=== PATIENT | male | born 1960 | race Caucasian/White ===

== ENCOUNTER 2016-06-13 08:01 | Day surgery (SDC) | payer OTHER ==
[~2016-06-13] VITALS: Ht 193 cm; Wt 97.6 kg
[~2016-06-13 08:01] MED LIST: ALBU18HF INH; ALPR0.5T8 PO; BECL8.7A6 INHALATION; CYPR4TAB PO; CeFAZolin 2 Gm/50 mL D5W IV Premix IV ONE; HYDR-4003 PO; Lactated Ringer's 1,000 ML IV SCH; SUMA6VIA18 SQ; VERA120T5 PO
[2016-06-13] MEDS ORDERED: fentaNYL-PF 50 mCg/mL 2 mL Inj ONE (08:02)
[2016-06-13] MEDS ORDERED: Propofol 10,000 mCg/mL 20 mL Inj ONE (08:02)
[2016-06-13] MEDS ORDERED: Lidocaine PF 1% 30 mL Inj ONE (08:02)
[2016-06-13] MEDS ORDERED: Lactated Ringer's 1,000 ML IV ONE (08:32)
[2016-06-13 08:33] VITALS: BP 130/66; PULSE 72; RESP 17; O2SAT 97
--- NOTE | 2016-06-13 08:51 | PCM.HPANE ---
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), Denies:: Anesthesia Reactions Diabetes History Hx Diabetes?: No MRSA MRSA: No Medications Home Meds Incl Beta Helene: No Reported Medications Beclomethasone Dipropionate (Qvar)8.7 Gm Aer.w.adap2 Puff INHALATION BID #8.7 GM 05/24/16 Albuterol Sulfate (Ventolin HFA Inhaler)200 Puff/18 Gm Inhaler2 Puff INH Q4 PRN For Wheezing #1 INHALER Ref 0 05/24/16 Hydrocodone-Acetaminophen 5-325 mg 1 Each Tablet1 Tablet PO Q4H PRN For Pain Ref 0 05/24/16 Alprazolam 0.5 Mg Tablet0.5 Mg PO TID PRN For Anxiety Ref 0 05/24/16 Cyproheptadine HCl 4 Mg Tablet4 Mg PO TID PRN For Eye Irritation 05/24/16 Sumatriptan Succinate 6 Mg/0.5 Ml Vial6 Mg SQ 05/24/16 Verapamil 120 Mg [id number] Mg PO TID Ref 0 05/24/16 History History of ENT Problems?: No HEENT History: Positive for:: Abnormal Airway (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) Dysphagia Teeth Condition: Missing Teeth Hx of Heart Problems?: No Other Cardiac History: HISTORY OF CALF PAIN Hx of Respiratory Problem?: Yes Respiratory History: Positive for:: Asthma COPD Cough (CHRONIC) Use of Inhalers / NEBS Other Resp Pertinent History: HISTORY OF SPONTANEOUS PNEUMOTHORAX Hx Neurologic Problems?: Yes Neurological History: Positive for:: Headaches Hx of GI Problems?: No Other GI Pertinent History: DYSPHAGIA Hx of Problems?: Yes Other Pertinent History: URINARY FREQUENCY, NOCTURIA Male Hx: Denies:: Prostate Problems Scrotal Mass Testicular Surgery Hx Musculoskeletal Problems?: No Musculoskeletal History: Positive for:: Back Injury Hx of Psycho/Social Problems?: No Hx Surgeries?: Yes (HERNIA REPAIR, BLUBECTOMY) Hx Any Other Health Problems?: Yes Other History: Positive for:: Cancer (HEAD AND NECK CANCER) Hx Diabetes: No Hx Alcohol Use: Yes (CHRONIC DAILY 40YEARS 4-5 BEERS DAILY)Hx Substance Use: Yes (MARIJUANA )Have You Smoked inLast 12 mo: YesApprox How Many Cigarettes/day : 1/2 PACK DAILY Stop/Bang Treated for Sleep Apnea?: No Do You Have a CPAP Machine?: No S-Snoring: Do You Snore Loudly: No T-Tired: feel tired, fatigued: No O-Obsered: Observed not breath: No P-Blood Pressure: treated: Yes B- Body Mass Index > 35 kg/m2: No A- Age over 50: Yes N- Neck Large Circumference: No G- Gender Male: Yes RAMONA Total Score: 3 RAMONA Risk Assessment: High Risk, =/>3 Yes RAMONA Category 4 OutPt Procedure: Yes Risk Assessment Category Category 1A: Patient has history of documented sleep apnea, and HAS NOT received any narcotic, sedative or anesthesia administration during this stay. Category 1B: Patient has history of documented sleep apnea, and HAS received any narcotic , sedative or anesthesia administration during this stay Category 2: Patient has SUSPECTED Obstructive Sleep Apnea, and HAS received any narcotic , sedative or anesthesia administration during this stay. Category 3: Patient has SUSPECTED Obstructive Sleep Apnea and HAS NOT received narcotic, sedative or anesthesia administration during this stay. Category 4: Outpatient in Procedural Areas with known sleep apnea or who screen positive for High Risk via the STOP/BANG questionnaire. Exam Exam Vital Signs Vital Signs Date Time Temp Pulse Resp B/P Pulse Ox O2 Delivery O2 Flow Rate FiO2 06/13/16 08:33 36.3 72 17 130/66 97 Room Air General Appearance: Alert, Oriented X3, Cooperative HEENT/AIRWAY: MP 2, Neck Movement (Full movement), Mouth Opening (Wide), Tonsillar Hypertrophy (tonsillar cancer) Lungs: Clear to Auscultation, Clear to Percussion Heart: Regular Rate/Rhythm, Normal S1, Normal S2 Meds/Labs/Diagnostics Admission Meds Current Medications Lactated Ringer's (Lr) 1,000 ml @ ud STK-MED ONCE IV Last administered on 1/12 /17at 08:32; Start 06/13/16 at 08:32; Stop 06/13/16 at 08:33; Status DC Plan Impression Patient chart reviewed, patient interviewed and anesthestic plan with risks, benefits, and alternatives discussed, and informed consent obtained. NPO Status: MN on 06/12, water @ 0700 w am Rx ASA Physical Status: ASA3 Severe Disease (stage IV cancer) Anesthetic Plan: MAC Bene/Risks/Altern/Consents: Yes HP Complete Prior to Induction: Yes Roberto Galvez MD Jun 13, 2016 08:51
[2016-06-13] MEDS ORDERED: Lactated Ringer's 1,000 ML IV SCH (08:53)
[2016-06-13] MEDS ORDERED: Lactated Ringer's 500 ML IV PRN (08:53)
[2016-06-13] MEDS ORDERED: fentaNYL-PF 50 mCg/mL 2 mL Inj IVPUSH PRN (08:55)
[2016-06-13] MEDS ORDERED: MetoCLOpramide 5 mg/mL 2 mL Inj IVPUSH PRN (08:55)
[2016-06-13] MEDS ORDERED: Labetalol 5 mg/mL 4 mL Inj IV PRN (08:55)
[2016-06-13] MEDS ORDERED: Ondansetron 2 mg/mL 2 mL Inj IVPUSH PRN (08:55)
[2016-06-13] MEDS ORDERED: Atropine 0.4 mg/mL Inj IVPUSH PRN (08:55)
[2016-06-13] MEDS ORDERED: Albuterol 2.5 mg/3 mL Inhalation Solution NEB PRN (08:55)
[2016-06-13] MEDS ORDERED: Phenylephrine 10,000 mCg/mL Inj IVPUSH PRN (08:55)
[2016-06-13] MEDS ORDERED: hydrALAZINE 20 mg/mL Inj IVPUSH PRN (08:55)
[2016-06-13] MEDS ORDERED: EPHEDrine Sulfate 50 mg/mL Inj IVPUSH PRN (08:55)
[2016-06-13] MEDS ORDERED: HYDROmorphone 1 mg/mL Inj IVPUSH PRN (08:55)
[2016-06-13] MEDS ORDERED: Dexamethasone 4 mg/mL Inj IVPUSH PRN (08:55)
[2016-06-13] MEDS ORDERED: HepLOK Flush 100 unit/mL 5 mL Inj IVFLUSH ONE (09:48)
[2016-06-13] MEDS ORDERED: Lidocaine PF 1% 30 mL Inj INFILTRATE ONE (09:48)
[2016-06-13] MEDS ORDERED: Bupivacaine-MPF 0.5% W/EPI 30 mL Inj INFILTRATE ONE (09:58)
[2016-06-13] MEDS ORDERED: HYDROcodone-APAP 5-325 mg Tablet PO PRN (10:30)
--- NOTE | 2016-06-13 10:32 | PCM.ANEP1 ---
Post Anesthesia Phase 1 PACU Phase 1 Assessment Date of Service: Jun 13, 2016 Vital Signs Phase II - HR 67, RR 16, T 36.2, BP 141/68, O2 96% RA Vital Signs Date Time Temp Pulse Resp B/P Pulse Ox O2 Delivery O2 Flow Rate FiO2 06/13/16 08:33 36.3 72 17 130/66 97 Room Air Anesthetic Administered: MAC Level of Alertness: Awake, talking ZAVALETA's with Equal Strength: Yes Pain: No Nausea or Vomiting: No Oxygen Delivery: Room Air Lungs: Normal Air Movement Roberto Galvez MD Jun 13, 2016 10:32
--- NOTE | 2016-06-13 10:33 | PCM.ANEP2 ---
Post Anesthesia Evaluation ASA/CMS Post Anesthesia Date of Service: Jun 13, 2016 VS in Patient's Normal Range?: Yes Resp Stable; Airway Patent?: Yes CV Function & Hydration Stable: Yes Mental Status Recovered?: Yes Pain control Satisfactory?: Yes N/V Control Satisfactory?: Yes Roberto Galvez MD Jun 13, 2016 10:33
[2016-06-13 10:35] VITALS: BP 120/66; PULSE 65; RESP 16; O2SAT 94
--- NOTE | 2016-06-13 10:49 | OP ---
[address] [address] OPERATIVE REPORT PATIENT: JAYLAN SNOW : 1960 MR#: [id number] ADMIT: 06/13/2016 JOB ID: [id number] DATE OF SURGERY: 06/13/2016 ANESTHESIA: MAC with local. PREOPERATIVE DIAGNOSIS(ES): Metastatic head and neck cancer. POSTOPERATIVE DIAGNOSIS(ES): Metastatic head and neck cancer. OPERATIVE PROCEDURE: Insertion of left subclavian vein Port-A-Cath using fluoroscopy with interpretation. SURGEON: Abdiaziz Borjas MD. INSULATION WORKER APPRENTICE: AMADA Easton. COMPLICATIONS: None. ESTIMATED BLOOD LOSS: Minimal. CONDITION: Satisfactory. FINDINGS: A regular PowerPort was inserted into the left subclavian vein without complication. INDICATION/SIGNIFICANT HISTORY: The patient is a 55-year-old man with a recent diagnosis of head and neck cancer requiring chemotherapy. OPERATIVE TECHNIQUE: The patient was taken to the operating room and placed in the supine position. Light sedation was administered. Perioperative antibiotics were given. The neck and chest were prepped and draped in a standard surgical fashion. A procedure pause performed. The left subclavian vein was accessed with a finder needle after injection of local anesthetic. The wire was inserted. I could not get the wire to go down into the inferior vena cava, so I elected to place a small catheter and check manometry to ensure that I was in the venous system. The wire was then reinserted. A subcutaneous pocket was then made in the left anterior chest. Port-A-Cath was secured in place using three 2-0 Prolene sutures. The catheter was then tunneled up to the wire exit point and inserted into the vein using Seldinger technique under fluoroscopic visualization. Good final position was confirmed with fluoroscopy. The port aspirated and flushed nicely. This was locked with heparin. The skin was then closed using 3-0 Vicryl deep dermis, followed by running 4-0 Monocryl. Dermabond was applied. The procedure was well tolerated without complications.
--- NOTE | 2016-06-13 11:02 | DRSVH ---
PROCEDURE: X-RAY CHEST ONE VIEW, PORTABLE ([id number]) INDICATIONS: PORT TECHNIQUE: One view of the chest was acquired. COMPARISON: None. FINDINGS: Surgical changes and devices: Left chest wall Port-A-Cath. Surgical clips project over the right medi astinum; please correlate with surgical history.. Lungs and pleura: No pleural effusions or pneumothorax. Lungs are clear. Mediastinum: Mediastinal contours appear normal. Heart size is normal. Bones and chest wall: No suspicious bony lesions. Overlying soft tissues appear unremarkable. IMPRESSION: 1. Status post placement of Port-A-Cath. 2. No acute cardiopulmonary disease process. Dictated by: Viji Whitfield MD, PhD on 06/13/2016 at 11:00 Approved by: Viji Whitfield MD, PhD on 06/13/2016 at 11:00
[2016-06-13 11:20] VITALS: BP 117/67; PULSE 59; RESP 16; O2SAT 92
[2016-09-24] MEDS ORDERED: BUPR150T9 PO (10:28)
[2016-09-24] MEDS ORDERED: NICO1PAT5 TRANSDERM (10:28)
== END 2016-06-13 23:59 | disposition home or self-care (01) ==
LOC: SAS 08:01
PROVIDERS: ATTEND General Practice
DX: C10.9 Malignant neoplasm of oropharynx, unspecified (principal); C77.0 Secondary and unspecified malignant neoplasm of lymph nodes of head, face and neck; F17.210 Nicotine dependence, cigarettes, uncomplicated
CPT/HCPCS: 36561; 71010; 77001; C1788; C1894; J0690; J1642; J2250; J7120

== ENCOUNTER 2016-10-08 15:02 | Inpatient (IN) | payer OTHER ==
[~2016-10-08] VITALS: Ht 193 cm; Wt 73.4 kg
[~2016-10-08 15:02] MED LIST changes: +BUPR150T9 PO; -CeFAZolin 2 Gm/50 mL D5W IV Premix IV ONE; -Lactated Ringer's 1,000 ML IV SCH; +NICO1PAT5 TRANSDERM
[2016-10-08 15:58] VITALS: BP 137/70; PULSE 81; RESP 19; O2SAT 96
[2016-10-08] MEDS ORDERED: NIC7 TRANSDERM (16:09)
[2016-10-08] MEDS ORDERED: SILV25CR4 TOPICAL (16:09)
[2016-10-08] MEDS ORDERED: ONDA-54 PO (16:09)
[2016-10-08] MEDS ORDERED: LORA-302 PO (16:09)
[2016-10-08] MEDS ORDERED: BENZ200C44 PO (16:09)
[2016-10-08] MEDS ORDERED: BUPR150T12 PO (16:15)
[2016-10-08] MEDS ORDERED: BUPR150T8 PO (16:15)
[2016-10-08] MEDS ORDERED: Alum-Mag Hydrox-Simeth 30 mL Suspension PO PRN (17:05)
[2016-10-08] MEDS ORDERED: Polyethylene Glycol (PEG) 17 Gm Powder PO PRN (17:05)
[2016-10-08] MEDS ORDERED: Ondansetron 2 mg/mL 2 mL Inj IVPUSH PRN (17:05)
[2016-10-08] MEDS: Ondansetron 2 mg/mL 2 mL Inj IVPUSH PRN ×2 (17:42→21:54)
[2016-10-08] MEDS: 0.9% Sodium Chloride 1,000 ML IV SCH (17:50)
[2016-10-08 18:22] LABS: BASOPHILS % (AUTO) 0.3 % (0-3); EOSINOPHILS % (AUTO) 0 % (0-5); Mean Corpuscular Hemoglobin 31.7 pg (27.0-35.0); NEUTROPHILS % (AUTO) 87.8 % (40-74); Platelet Count 117 bil/L (150-400)
[2016-10-08 18:25] VITALS: PULSE 76
--- NOTE | 2016-10-08 18:34 | NUR ---
Admission Pt brought over from Cancer care center in w/c by RN and report given bedside. Pt having nausea and wretching and feeling very weak, but able to use BR and transfer to bed. Pt quiet, but verbalized to RN that brought him over that he is upset at being admitted and that his brother had a fall here and "I should have sued the hospital when I had the chance." When speaking with pt about placing dobbhoff tube, pt stated "I just want to go home and ." Notified MD and he will discuss plan with other dr's. Pt has no pain, but is very tired and cold. Having increasing anxiety and vomiting, medications given and pt able to rest. Pt has redness over throat and neck. A&O x 3, ZAVALETA, ANA LUISA. Pt has hx of falls recently, yellow socks on end of bed, bed alarm on and pt educated to use call light prior to getting up. UA needed and asked pt to call if he needs to use the BR. Call light in reach and bed in low.
[2016-10-08 18:41] LABS: INR 1.14 ratio
[2016-10-08] MEDS ORDERED: Magnesium Sulf 4 Gm/100 mL H2O 4 GM in IV Premix 1 EACH IV ONE (19:35)
[2016-10-08 20:00] VITALS: PULSE 76
--- NOTE | 2016-10-08 21:27 | PCM.HPMED ---
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 Patient states he has been having worsening of dysphagia for the last 1.5 weeks ,he is unable to swallow even liquid diet . He also has worsening of nausea and vomiting in which he has been unable to hold anything down for the last 1 week. He states he will vomit whatever he is able to pass through his throat immediately .denies fever.denies abdominal distension . able to pass gas and bowel movement He was getting daily chemoradiation thru coming Friday and was getting normal saline bolus daily with chemo. He continues to have the above symptoms and also was noted to have worsening creatinine to 2.9 from baseline of 1 few days ago which prompted direct admission. Review of Systems: comprehensive review of systems performed ,pertinent positives and negatives included in HPI Allergies Coded Allergies: No Known Allergies (Unverified , 10/08/16) Home Medications veraPmil 120mg 3x/day for Cluster BURKS ppx,hasn't been taking for weeks now cycloheptadine 4mg prn sumatriptan 6mg/0.5ml prn for BURKS ppx xanax 0.5mg prn ventolin HFA prn hydrocodone -acetaminophen 5-325 1 tab q6h prn lorazepam 0.5 mg prn zofran 8mg prn PMH throat cancer on chemoradiation COPD on Qvar,never had PFT,diagnosed clinically and started on treatment recently cluster BURKS current smoker, used to be heavy drinker until May history of spontanoeus pneumothorax 2-3 x Surgical History inguinal hernia repair in 1959's and 1976 at age 16 chest tube in 1992 for spontaneous pneumothorax elbow surgery 1995 Family History mother of lung cancer at age 65 Social History Hx Alcohol Use: Yes Alcoholic Drinks Per Day: none Hx Substance Use: Yes (opioids) Exam Vital Signs Vital Sign - Last Date Time Temp Pulse Resp B/P Pulse Ox O2 Delivery O2 Flow Rate FiO2 10/08/16 18:25 76 10/08/16 15:58 37.1 19 137/70 96 Room Air Exam chronically sick looking cachectic man,dehydrated with sunken eyes dry mucus membranes,no oral thrush clear chest tachycardic,no murmur soft abdomen,+ BS no CVAT no edema alert and oriented x3 Lab and Diagnostics Result Diagram: 10/08/16180610/08/161806 Assessment & Plan 56 yo unfortunate gentleman with PMH COPD,history of cluster headache,current smoker who was diagnosed with 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 # Acute renal failure due to poor oral intake due to dysphagia and intractable vomiting -Cr 2.9 from baseline of 1 on 09/24 -NS at 150ml/h -renal US -initially considered temporary Dobhoff tube for nutrition and rehydration per GI but patient states he has been discussing PEG placement with his oncologist and declined NGT . -will continue IVF and NPO after 5am for possible EGD and PEG # Intractable vomiting due to chemo of 1 week -zofran iv prn -protonix iv # dysphagia due to throat cancer -PEG as above #hypomagnesemia due to vomiting -initial Mg 1.0 and repleted # history of COPD -c/w Qvar -stable now # anemia and leukopenia due to chemo -monitor for now # history of cluster headache -stable # current smoker -patient cutting down smoking recently -c/w home fentanyl patch ppx possibly lovenox tmrw after PEG discussed code status ,he is DNR/DNI ,he names his of 40 yrs Bernice ( she says they never had legal marriage but lived for 40 yrs ) at [phone] and his older brother Tristan at [phone] as POA inpatient Resuscitation Status: DNR/DNI:Do Not Resuscitate/Intubate copies to: Dawson Forman MD; Ana M Jurado MD, Melaku MD October 08, 2016 21:27
[2016-10-08] MEDS ORDERED: ALPRAZolam 0.5 mg Tablet PO PRN (21:45)
[2016-10-08] MEDS ORDERED: LORazepam 0.5 mg Tablet PO PRN (21:45)
[2016-10-08 21:50] VITALS: BP 148/69; PULSE 76; RESP 20; O2SAT 97
[2016-10-08] MEDS ORDERED: HYDROcodone-APAP 5-325 mg Tablet PO PRN (22:00)
[2016-10-08] MEDS ORDERED: Albuterol 2.5 mg/3 mL Inhalation Solution NEB PRN (22:00)
[2016-10-08 22:28] LABS: APPEARANCE,URINE CLEAR (CLEAR,HAZY); COLOR,URINE STRAW (YELLOW); PH,URINE 5.5 (5.0-8.0)
[2016-10-08 22:29] LABS: OCCULT BLOOD,URINE NEGATIVE (NEGATIVE); UROBILINOGEN,URINE NORMAL (NORMAL)
[2016-10-09] VITALS (7 sets, daily range): BP systolic 102–156; BP diastolic 55–67; PULSE 68–83; RESP 18–20; O2SAT 92–97
[2016-10-09] MEDS: buPROPion SR 150 mg ER12 Tablet PO SCH ×3 (00:48→20:18)
[2016-10-09] MEDS: Pantoprazole 4 mg/mL 10 mL Inj IVPUSH SCH ×3 (00:48→16:31)
[2016-10-09] MEDS: 0.9% Sodium Chloride 1,000 ML IV SCH ×4 (00:57→21:39)
[2016-10-09] MEDS: Ondansetron 2 mg/mL 2 mL Inj IVPUSH PRN ×4 (00:58→22:09)
[2016-10-09 05:28] LABS: BASOPHILS % (AUTO) 0 % (0-3); EOSINOPHILS % (AUTO) 0.2 % (0-5); MONOCYTES % (AUTO) 6.7 % (4-12); Mean Corpuscular Hemoglobin 31.8 pg (27.0-35.0); Mean Corpuscular Volume 89.7 fL (81-100); NEUTROPHILS % (AUTO) 86.5 % (40-74); Platelet Count 112 bil/L (150-400)
[2016-10-09 05:56] LABS: Magnesium 1.7 mg/dL (1.6-2.6)
--- NOTE | 2016-10-09 06:34 | NUR ---
GI Nausea with 30ml emesis last evening. Zofran given and effective. Fatigued and wanting to sleep. Denies pain, states "someone should just shoot me". C/0 headache. Immetrex given and with stated relief. Slept most of night.
--- NOTE | 2016-10-09 08:35 | DRSVH ---
PROCEDURE: X-RAY CHEST ONE VIEW, PORTABLE ([id number]) INDICATIONS: vomitting TECHNIQUE: One view of the chest was acquired. COMPARISON: [facility], [place], PET NECK TO MID THIGH STD, 06/07/2016, 9:42. [facility], CR, XR CHEST 1VW (PORTABLE), 06/13/2016, 10:39. FINDINGS: Surgical changes and devices: Stable position of left chest Port-A-Cath and surgical clip is seen pro jected over the right mediastinum. Lungs and pleura: No pleural effusions or pneumothorax. Lung volumes are increased and hemidiaphrag ms are mildly flattened. Scarring within the mid lungs and the lung bases appears unchanged. No foc al lung consolidation. Mediastinum: Mediastinal contours appear normal. Heart size is normal. Bones and chest wall: No suspicious bony lesions. Overlying soft tissues appear unremarkable. IMPRESSION: No acute cardiopulmonary disease. Dictated by: Hemanth SÁNCHEZ Interpreted: Bernice Weiss MD on 10/09/2016 at 8:33 Transcribed by: MICAELA on 10/09/2016 at 8:35 Approved by: Bernice Weiss M.D. on 10/09/2016 at 17:41
--- NOTE | 2016-10-09 08:51 | DRSVH ---
PROCEDURE: US RETROPERITONEAL SONOGRAM ([id number]) INDICATIONS: acute kidney failure TECHNIQUE: Real-time scanning was performed of the kidneys and bladder, with image documentation. COMPARISON: None. FINDINGS: Kidneys: Kidneys are normal in size. Right kidney measures 11.8 cm long; left kidney measures 11.9 cm long. Right renal cortical thickness is 1.4 cm; left renal cortical thickness is 2.0 cm. Hortencia l cortical echotexture is normal. No hydronephrosis or nephrolithiasis. No suspicious solid mass le sions. Bladder: Bladder appears grossly normal. Post void was not evaluated. Miscellaneous: No free pelvic fluid. IMPRESSION: Grossly normal appearance of the kidneys. Dictated by: Hemanth Nash [facility] Interpreted: Bernice Weiss MD on 10/09/2016 at 8:48 Transcribed by: MICAELA on 10/09/2016 at 8:50 Approved by: Bernice Weiss M.D. on 10/09/2016 at 17:54
--- NOTE | 2016-10-09 08:59 | DRSVH ---
PROCEDURE: X-RAY ABDOMEN, ONE VIEW ([id number]) INDICATIONS: vomiting TECHNIQUE: One view of the abdomen acquired. COMPARISON: [facility], [place], PET NECK TO MID THIGH STD, 06/07/2016, 9:42. FINDINGS: Surgical changes and devices: None. Bowel: Bowel gas pattern is normal. Several small scattered radiodensities within the right flank a nd hemipelvis which may be related to residual contrast media. Soft tissues: No suspicious abdominal calcifications. Visualized solid organ contours appear normal in size. Bones: No suspicious bony lesions. IMPRESSION: 1. Normal bowel gas pattern. 2. Several scattered right flank and hemipelvic radiodensities which may be related to residual contr ast. Dictated by: Hemanth SÁNCHEZ Interpreted: Bernice Weiss MD on 10/09/2016 at 8:55 Transcribed by: MICAELA on 10/09/2016 at 8:58 Approved by: Bernice Weiss M.D. on 10/09/2016 at 17:42
--- NOTE | 2016-10-09 09:11 | NUR ---
Social Work: Screening Data: Pt is a 56 y/o male admitted for severe dehydration. Pt's PCP is Dr Forman, pt's insurance is [employer] . [facility]. Readmit score is 4, high. CHANNEL SALES DIRECTOR will continue to follow for possible HH need. Assessment: Pt who is independent at baseline. Plan: Pt will d/c home via POV when medically stable, CHANNEL SALES DIRECTOR will continue to follow for possible HH need. BRADLEY Vasquez
[2016-10-09] MEDS: Fluticasone 100 mCg Inhaler INHALATION SCH ×2 (09:15→20:17)
--- NOTE | 2016-10-09 10:35 | NUR ---
NUTRITION ASSESSMENT Assess: 56 YO M with left hypopharynx squamous cell carcinoma admitted for severe dehydration and PEG placement. Pt has been experiencing constant nausea, poor appetite, and taste/texture changes and his lower dentures no longer fit. Pt has had ~20kg wt loss x6 months (~20% wt loss x6 months= significant). Pt would greatly benefit from TF to help meet kcal/pro/fluid needs. PMHX: COPD, tobacco, ETOH, cluster headaches, pneumothoraces. LABS: Na 145, Bun 47, Job Recruiter 2.54, Glu 126, Alb 3.9 MEDICATIONS: Reviewed. Zofran, NaCL @ 150ml/hr GI: Nausea w/some emesis this am ANTHROPOMETRICS: Wt: 76.9 kg, BMI 20.6kg/m2, ~20% wt loss x6 months. UBW: 96kg, IBW: 91.8kg ESTIMATED NEEDS: Calories: 9811-9175 kcal/day (30-35 kcal/kg BW) Protein: 90-135 g/day (1.0-1.5 g/kg IBW) Fluids: ~1925-2310ml/day (25-30ml/kg) NUTRITION DIAGNOSIS: 1) Severe pro/kcal malnutrition related to chronic disease as evidence by 20% wt loss x6 months, PO less than 75% of needs for greater than 1 month and difficulty chewing/swallowing. INTERVENTION: 1) Due to pt's persistent inability to maintain his weight and consume adequate nutrition orally, he would greatly benefit from PEG placement and nutrition support. Pt would benefit from TF for at least 3 months. 2) Recommend start TF of Jevity 1.5 @ 10ml/hr. Recommend hold at 00mbt15rus to establish tolerance. If tolerated, recommend advance slowly towards goal rate by 10ml q 6 hrs until reach goal rate of 75ml/hr to provide 2587kcal and 110g pro (100% estimated needs). Recommend flush 40ml q 4 hrs while pt is on IVF. If IVF is stopped, recommend flush 85ml q 3 hrs to provide an additional 680ml/day. TF+fluid flush provides 1991ml H20. 3) Adjust fluid flush and TF goal rate is pt is able to tolerate some PO intake. MONITOR/EVALUATE: TF start/myke, Weight, PO intake?, GI, labs, POC, nutrition status. Follow per high nutrition risk guidelines.
--- NOTE | 2016-10-09 11:10 | PCM.CHPMED ---
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 Jurado's office) due to dysphagia, kidney injury, and significant dehydration. Patient states he has been unable to swallow solids for over a month but over the last couple of weeks he has grown progressively unable to swallow liquids. He also said size had some nausea and vomiting without hematemesis. Denies ongoing fever, chills, nausea, vomiting, melena, hematochezia, distention of the abdomen , abdominal pain, change in bowel habits. He had 3 days left on his radiation but this is obviously now on hold. His creatinine was elevated on presentation at 2.9 as always resolving with today's creatinine being 2.54. Calcitonin was indeterminate, patient does show a left shift and thrombocytopenia on the CBC although is undergoing chemotherapy. Patient did not want Dobbhoff NG tube placed but realizes that he needs some enteric nutrition. GI was consult for upper endoscopy as well as possible PEG tube placement. Review of Systems: See history of present illness PMH Past Medical History throat cancer on chemoradiation COPD on Qvar,never had PFT,diagnosed clinically and started on treatment recently cluster BURKS current smoker, used to be heavy drinker until May history of spontanoeus pneumothorax 2-3 x Hx Any Other Health Problems?: YesHx Diabetes: No Surgical History inguinal hernia repair in 1959's and 1975 at age 16 chest tube in 1992 for spontaneous pneumothorax elbow surgery 1995 Home Medications veraPmil 120mg 3x/day for Cluster BURKS ppx,hasn't been taking for weeks now cycloheptadine 4mg prn sumatriptan 6mg/0.5ml prn for BURKS ppx xanax 0.5mg prn ventolin HFA prn hydrocodone -acetaminophen 5-325 1 tab q6h prn lorazepam 0.5 mg prn zofran 8mg prn Allergies: Coded Allergies: No Known Allergies (Unverified , 5/9/17) Family History Family History mother of lung cancer at age 65 Social History Hx Alcohol Use: YesAlcoholic Drinks Per Day: noneHx Substance Use: Yes ( opioids) Exam Vital Signs Vital Sign - Last Date Time Temp Pulse Resp B/P Pulse Ox O2 Delivery O2 Flow Rate FiO2 10/09/16 09:20 37.1 74 18 110/63 97 Room Air Intake and Output 10/08/16 10/08/16 10/09/16 Cumulative From/Thru 15:00 23:00 07:00 10/08/16 15:43 - 10/09/16 06:50 Intake Total 87 ml 1773 ml 1860 ml Output Total 0 ml 3425 ml 3425 ml Balance 87 ml -1652 ml -1565 ml Intake Oral 0 ml 100 ml 100 ml IV Total 87 ml 1673 ml 1760 ml Output Urine Total 0 ml 3425 ml 3425 ml # Voids 5 5 # Bowel Movements 0 0 0 Additional Information: General: Ill-appearing, no acute distress HEENT: Mucous membranes moist, noticeable skin changes Cardio: Regular rate and rhythm Respiratory: CTA bilaterally with coarse and decreased breath sounds Abdomen: Soft, bowel tones difficult to auscultate Extremities: No edema Skin: Dark pigmentation on neck and upper chest likely due to radiation Psych: Appropriate mood and affect Neuro: Cannot swallow on command. Lab and Diagnostics Result Diagram: 10/09/1651410/09/16514 Assessment & Plan Assessment 56-year-old male with progressive dysphagia likely secondary to ongoing radiation therapy for squamous carcinoma of the throat. Patient also had ongoing nausea and vomiting and today patient will be placed on Protonix and undergo EGD with possible PEG tube placement. Patient states he has not eaten solid food in numerous weeks and has had decreasing fluid intake over the last 2 weeks or so. After procedure patient will need to be titrated on tube feedings. Thank you for allowing us to participate in the care of this patient. Problems: VTE Mechanical Devices: Intermittant Pneumatic CD Resuscitation Status: DNR/DNI:Do Not Resuscitate/Intubate Attending Statement Patient seen and examined. Agree with assessment and plan as describe by Dr Reynoso. However, after additional discussion with Dr Jurado, patient has elected to try the dobhoff approach. I agree will follow. Jeferson Reynoso DO October 09, 2016 11:10 Cristopher Leiva MD October 09, 2016 15:50
[2016-10-09] MEDS ORDERED: CeFAZolin Inj 2 GM in IV Premix 1 EACH IV ONE (12:55)
[2016-10-09] MEDS: 0.9% Sodium Chloride 250 ML IV SCH (13:29)
[2016-10-09] MEDS ORDERED: Sodium Chloride LOK Flush 10 mL Syringe IVFLUSH PRN ×2 (13:30)
[2016-10-09] MEDS ORDERED: HepLOK Flush 100 unit/mL 5 mL Inj IVFLUSH PRN (13:30)
[2016-10-09] MEDS: HYDROmorphone 1 mg/mL Inj IVPUSH PRN ×2 (13:54→17:45)
--- NOTE | 2016-10-09 14:21 | PCM.HPANE ---
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), Denies:: Anesthesia Reactions Diabetes History Hx Diabetes?: No MRSA MRSA: No Medications Reported Medications Bupropion ER (Wellbutrin SR)150 Mg Tablet.er150 Mg PO BID Ref 0 10/08/16 Benzonatate 200 Mg Gpagtmo079 Mg PO TID PRN For Cough #50 10/08/16 Nicotine 7 mg/24 hr Patch 1 Each Patch.td241 Patch TRANSDERM DAILY #14 10/08/16 Ondansetron 8 Mg Tablet8 Mg PO BID PRN For Nausea #50 10/08/16 Lorazepam (Ativan)0.5 Mg Tablet0.5 Mg PO TID PRN For Nausea #90 10/08/16 Silver Sulfadiazine (Ssd 25GM Pp)25 Gm Cr1 Applic TOPICAL TID #400 10/08/16 Beclomethasone Dipropionate (Qvar)8.7 Gm Aer.w.adap2 Puff INHALATION BID #8.7 GM 05/24/16 Albuterol Sulfate (Ventolin HFA Inhaler)200 Puff/18 Gm Inhaler2 Puff INH Q4 PRN For Wheezing #1 INHALER Ref 0 05/24/16 Hydrocodone-Acetaminophen 5-325 mg 1 Each Tablet1-2 Tablet PO q4-6 hours PRN For Pain Ref 0 05/24/16 Alprazolam 0.5 Mg Tablet0.5 Mg PO TID PRN For Anxiety Ref 0 05/24/16 Cyproheptadine HCl 4 Mg Tablet4 Mg PO TID PRN For Eye Irritation 05/24/16 Sumatriptan Succinate 6 Mg/0.5 Ml Vial6 Mg SQ BID PRN migraine 05/24/16 Discontinued Reported Medications Bupropion ER 150 Mg Tablet.er150 Mg PO BID Ref 0 10/08/16 Nicotine 14 mg/24 hr Patch 1 Each Patch.td241 Patch TRANSDERM DAILY Ref 0 09/24/16 Bupropion HCl (Zyban)150 Mg Tablet.er150 Mg PO 09/24/16 Verapamil 120 Mg Zrutzu710 Mg PO TID Ref 0 05/24/16 History History of ENT Problems?: Yes HEENT History: Positive for:: 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 Hx of Heart Problems?: No Cardiovascular History: Denies:: Pacemaker Hx of Respiratory Problem?: Yes Respiratory History: Positive for:: Asthma COPD Cough (CHRONIC) Pneumonia (hx of) Hx Neurologic Problems?: Yes Neurological History: Positive for:: Headaches Hx of GI Problems?: No Other GI Pertinent History: "hernia" pt unable to verbalize what kind. Hx of Problems?: Yes Male Hx: Denies:: Prostate Problems Scrotal Mass Testicular Surgery Hx Musculoskeletal Problems?: Yes Musculoskeletal History: Positive for:: Back Injury Hx of Psycho/Social Problems?: No Hx Surgeries?: Yes ("elbow surgery") Hx Any Other Health Problems?: Yes Other History: Positive for:: Cancer (throat CA current) Hospitalization (hernia, bladder) History Blood Transfusions: Positive for:: Accept Blood Products? Denies:: Blood Transfuse Reaction Blood Transfusions Hx Diabetes: No Hx Alcohol Use: YesAlcoholic Drinks Per Day: noneHx Substance Use: Yes ( opioids)Have You Smoked inLast 12 mo: YesApprox How Many Cigarettes/day: 20-40 Stop/Bang Treated for Sleep Apnea?: No Do You Have a CPAP Machine?: No S-Snoring: Do You Snore Loudly: No T-Tired: feel tired, fatigued: Yes O-Obsered: Observed not breath: No P-Blood Pressure: treated: No B- Body Mass Index > 35 kg/m2: No A- Age over 50: Yes N- Neck Large Circumference: No G- Gender Male: Yes RMAONA Total Score: 2 Risk Assessment Category Category 1A: Patient has history of documented sleep apnea, and HAS NOT received any narcotic, sedative or anesthesia administration during this stay. Category 1B: Patient has history of documented sleep apnea, and HAS received any narcotic , sedative or anesthesia administration during this stay Category 2: Patient has SUSPECTED Obstructive Sleep Apnea, and HAS received any narcotic , sedative or anesthesia administration during this stay. Category 3: Patient has SUSPECTED Obstructive Sleep Apnea and HAS NOT received narcotic, sedative or anesthesia administration during this stay. Category 4: Outpatient in Procedural Areas with known sleep apnea or who screen positive for High Risk via the STOP/BANG questionnaire. Exam Exam Vital Signs Vital Signs Date Time Temp Pulse Resp B/P Pulse Ox O2 Delivery O2 Flow Rate FiO2 10/09/16 11:14 83 10/09/16 09:20 37.1 74 18 110/63 97 Room Air 10/09/16 06:48 37.2 80 18 102/55 97 Room Air General Appearance: Other HEENT/AIRWAY: Other Meds/Labs/Diagnostics Admission Meds Current Medications Sodium Chloride 1,000 ml @ 150 mls/hr Q6H40M IV Last administered on 09:04; Start 10/08/16 at 17:01 Magnesium Sulfate/ Premix (Magnesium Sulf 4 Gm/100 mL H2O/ IV Premix) 100 ml @ 33.333 mls/ hr ONCE ONCE IV Last administered on 10/08/16 20:10; Start at 19:35; Stop 10/08/16 at 22:35; Status DC Fluticasone Propionate (Flovent 100 mCg Diskus) 1 puff BID INHALATION Last administered on 10/09/16 09:15; Start 10/09/16 at 08:30 Bupropion HCl (Wellbutrin-SR) 150 mg BID PO Last administered on 10/09/16 00: 48; Start 10/08/16 at 22:00 Nicotine (Nicoderm 7 mg/ 24 Hr Patch) 1 patch DAILY TOPICAL Last administered on 10/09/16 09:12; Start 10/09/16 at 08:30 Silver Sulfadiazine (Silvadene Cream) 1 applic TID TOPICAL Last administered on 10/09/16 09:30; Start 10/09/16 at 08:30 Pantoprazole (Protonix Inj) 40 mg BIDAC IVPUSH Last administered on 10/09/16 09:05; Start 10/08/16 at 22:05 Labs Test 10/08/16 18:07 10/08/16 22:19 10/09/16 05:15 Prothrombin Time 12.2sec (8.1-12.5) Prothromb Time International Ratio 1.14ratio Procalcitonin 0.16ng/mL (0.00-0.08) Hold Castellanos Top Tube Received (Received) Urine Color Straw (YELLOW) Urine Appearance Clear (CLEAR,HAZY) Urine pH 5.5 (5.0-8.0) Urine Specific [place] 1.010 (1.003-1.035) Urine Protein Negativemg/dL (NEG,TRACE) Urine Glucose (UA) Negativemg/dL (NEGATIVE) Urine Ketones 40mg/dL (NEGATIVE) Urine Occult Blood Negative (NEGATIVE) Urine Nitrite Negative (NEGATIVE) Urine Bilirubin Negative (NEGATIVE) Urine Urobilinogen Normalmg/dL (NORMAL) Urine Leukocyte Esterase Negative (NEGATIVE) Urine RBC 0-2/hpf (0-2) Urine WBC 0-5/hpf (0-5) Urine Epithelial Cells Occasional/hpf (NONE-MOD) Urine Crystals None seen (NONE SEEN) Urine Bacteria None/hpf (NONE-FEW) Urine Hyaline Casts None/lpf (NONE) Urine Granular Casts None seen (NONE SEEN) Urine Waxy Casts None seen (NONE SEEN) Urine Red Blood Cell Casts None seen (NONE SEEN) Urine White Blood Cell Casts None seen (NONE SEEN) Urine Mucus None seen (None Seen) Urine Trichomonas None seen (NONE SEEN) Urine Yeast None (NONE SEEN) Urinalysis Comment None Urine Culture Reflexed Not indicated White Blood Count 5.8th/mm3 (3.8-10.1) Red Blood Count 3.40mil/mm3 (4.40-5.80) Hemoglobin 10.8g/dL (13.8-17.2) Hematocrit 30.5% (41.0-50.0) Mean Corpuscular Volume 89.7fL (81-100) Mean Corpuscular Hemoglobin 31.8pg (27.0-35.0) Mean Corpuscular Hemoglobin Concent 35.4% (32.0-37.0) Red Cell Distribution Width 16.1% (12.3-15.4) Platelet Count 112bil/L (150-400) Neutrophils (%) (Auto) 86.5% (40-74) Lymphocytes (%) (Auto) 6.4% (14-46) Monocytes (%) (Auto) 6.7% (4-12) Eosinophils (%) (Auto) 0.2% (0-5) Basophils (%) (Auto) 0% (0-3) Sodium Level 145mEq/L (134-144) Potassium Level 3.7mEq/L (3.5-5.2) Chloride Level 99mEq/L (97-108) Carbon Dioxide Level 21mmol/L (18-29) Blood Urea Nitrogen 47mg/dL (6-24) Creatinine 2.54mg/dL (0.76-1.27) Estimat Glomerular Filtration Rate 28mL/min (>59) Glucose Level 126mg/dL (60-99) Calcium Level 8.8mg/dL (8.5-10.1) Magnesium Level 1.7mg/dL (1.6-2.6) Total Bilirubin 0.4mg/dL (0.0-1.2) Aspartate Amino Transf (AST/SGOT) 12U/L (0-50) Alanine Aminotransferase (ALT/SGPT) 8U/L (0-44) Alkaline Phosphatase 68U/L (25-150) Total Protein 7.1g/dL (6.4-8.4) Albumin 3.9g/dL (3.4-5.0) Plan Impression Patient chart reviewed, patient interviewed and anesthestic plan with risks, benefits, and alternatives discussed, and informed consent obtained. Other case cancelled before interview. Please disregard this note Sae Trevino MD October 09, 2016 14:21
--- NOTE | 2016-10-09 15:17 | NUR ---
yeast fermentation attendantmanagement lecturer note: Met with patient to see how he is doing. Patient is waiting for Upper EGD to be done with placement of PEG Tube or DobHoff. Patient expressed a desire to quit smoking evidenced by "Now if I could just quit smoking". No care needs identified at this time. Will continue to provide assistance as needed. Nena Paige RN, OCN Oncology Cannery Tender Engineer
--- NOTE | 2016-10-09 17:38 | PROG NOTE ---
[address] [address] PROGRESS NOTE PATIENT: JAYLAN SNOW : 1960 MR#: [id number] ADMIT: 10/08/2016 JOB ID: [id number] DATE: 10/09/2016 DIAGNOSES: 1. Acute kidney injury, due to cisplatin and hypovolemia. 2. Hypopharynx squamous cell carcinoma, undergoing concurrent chemoradiotherapy. SUBJECTIVE: The patient was admitted from Oncology Clinic directly yesterday for a poor oral intake and acute kidney injury. Initially, the plan was PEG tube, then after discussion with Dr. Leiva, we decided to try Dobbhoff, given that this is likely only needed for short term. The patient was initially not excited about having Dobbhoff for a couple of weeks, but now he is agreeable. He has been kept n.p.o. for EGD, but now that he is agreeable with Dobbhoff, we cancelled n.p.o. and his EGD. OBJECTIVE: Sitting up, comfortably, but somewhat upset. Blood pressure 146/64, heart rate 68, temperature 36.8. LABORATORY DATA: Creatinine has improved to 2.54. Magnesium has been replaced. Hemoglobin has improved to 10.8. PLAN: 1. Dobbhoff will be placed at bedside and tube feedings will start as per heel scorer's recommendations. Once the patient is at target tube feeds, and with further improvement in his renal function, discharge is expected in the next 24-48 hours. 2. The patient should continue receiving daily radiotherapy while admitted to hospital. His last radiotherapy is scheduled on October 11. I will follow up tomorrow.
--- NOTE | 2016-10-09 17:46 | PCM.PNMED ---
Subjective Date of Service October 09, 2016 Subjective Patient getting IV hydration. Kidney function improving. Nausea and vomiting controlled. Initial plan was for PEG tube but after discussion with oncologist and GI decided to go on Dobbhoff for temporary feeding hoping his dysphagia will improve after radiation Exam Vital Signs Vital Sign - Last Date Time Temp Pulse Resp B/P Pulse Ox O2 Delivery O2 Flow Rate FiO2 10/09/16 16:19 36.8 68 18 146/64 93 Room Air Intake and Output 10/08/16 10/08/16 10/09/16 Cumulative From/Thru 15:00 23:00 07:00 10/08/16 15:43 - 10/09/16 06:50 Intake Total 87 ml 1773 ml 1860 ml Output Total 0 ml 3425 ml 3425 ml Balance 87 ml -1652 ml -1565 ml Intake Oral 0 ml 100 ml 100 ml IV Total 87 ml 1673 ml 1760 ml Output Urine Total 0 ml 3425 ml 3425 ml # Voids 5 5 # Bowel Movements 0 0 0 Exam chronically sick looking cachectic man,dehydrated with sunken eyes dry mucus membranes,no oral thrush clear chest tachycardic,no murmur soft abdomen,+ BS no CVAT no edema alert and oriented x3 IVs and Medications Medications Reviewed: Medications were reviewed in detail Lab and Diagnostics Result Diagram: 10/09/1651410/09/16514 X-Rays, CTs and MRIs PROCEDURE: US RETROPERITONEAL SONOGRAM ([id number]) INDICATIONS: acute kidney failure TECHNIQUE: Real-time scanning was performed of the kidneys and bladder, with image documentation. COMPARISON: None. FINDINGS: Kidneys: Kidneys are normal in size. Right kidney measures 11.8 cm long; left kidney measures 11.9 cm long. Right renal cortical thickness is 1.4 cm; left renal cortical thickness is 2.0 cm. Renal cortical echotexture is normal. No hydronephrosis or nephrolithiasis. No suspicious solid mass lesions. Bladder: Bladder appears grossly normal. Post void was not evaluated. Miscellaneous: No free pelvic fluid. IMPRESSION: Grossly normal appearance of the kidneys. 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 # Acute renal failure due to poor oral intake due to dysphagia and intractable vomiting, improving -Initial Cr 2.9 from baseline of 1 on 09/24 -NS at 75 ml/h -renal US normal -initially considered PEG tube per patient preference. but after discussion with oncologist and GI ,decided to go on Dobbhoff for temporary feeding hoping his dysphagia will improve after radiation In few weeks.Dr Jurado thinks he may only need feeding tube for 2-3 weeks. Plan to discharge with Dobbhoff -will continue IVF # Intractable vomiting due to chemo of 1 week -zofran iv prn -protonix iv # dysphagia due to throat cancer - as above #hypomagnesemia due to vomiting -initial Mg 1.0 and repleted # history of COPD -c/w Qvar -stable now # anemia and leukopenia due to chemo -monitor for now # history of cluster headache -stable # current smoker -patient cutting down smoking recently -c/w home fentanyl patch ppx possibly lovenox tmrw after PEG discussed code status ,he is DNR/DNI ,he names his of 40 yrs Bernice ( she says they never had legal marriage but lived for 40 yrs ) at [phone] and his older brother Tristan at [phone] as POA inpatient Disposition: Possible discharge tomorrow if continues to improve VTE Mechanical Devices: Intermittant Pneumatic CD Resuscitation Status: DNR/DNI:Do Not Resuscitate/Intubate Colton Brice MD October 09, 2016 17:46
--- NOTE | 2016-10-09 18:36 | DRSVH ---
PROCEDURE: X-RAY ABDOMEN, ONE VIEW ([id number]) INDICATIONS: CONFERMANTION OF DOBB HOF PLACEMENT TECHNIQUE: One view of the abdomen acquired. COMPARISON: [facility], [place], PET NECK TO MID THIGH STD, 06/07/2016, 9:42. [facility], CR, XR ABD AP 1VW, 10/08/2016, 22:36. FINDINGS: Surgical changes and devices: A Dobbhoff catheter is seen with the tip in the area of the stomach. Th ere is a left-sided central venous catheter with the tip in SVC. Bowel: Bowel gas pattern is normal. Soft tissues: There are multiple calcific densities in the right abdomen. Visualized solid organ con tours appear normal in size. Bones: No suspicious bony lesions. IMPRESSION: The Dobbhoff catheter tip is seen in the area of the stomach. Dictated by: Amber Elmore M.D. on 10/09/2016 at 18:32 Approved by: Amber Elmore M.D. on 10/09/2016 at 18:35
--- NOTE | 2016-10-09 19:23 | NUR ---
Lachelle Alex 11 [place] feeding tube placed at bedside by Dr. Brice, placement just confirmed by xray. Inserted to 65cm on R nostril. Pt struggled with procedure and had spastic cough after first attempt. Ativan and Dilaudid given IV immediately following procedure and was immediately effective for pt. Tube feed to be initiated this evening with KIAH GALLEGO.
[2016-10-10 00:39] VITALS: BP 159/74; PULSE 66; RESP 18; O2SAT 95
[2016-10-10] MEDS: 0.9% Sodium Chloride 1,000 ML IV SCH ×3 (01:39→16:59)
--- NOTE | 2016-10-10 01:45 | NUR ---
Tube Feeding Tube feeding started at 2210, confirmed placement with X-ray. Jevity 1.5 infusing at 10cc/hr, with 40cc Q4hr flush of H20. Patient was premedicated with 4mg Zofran IVP. Has denied any discomfort, N/V at this time. Will continue to closely monitor, and continue Q1 hour checks. Addendum: 10/10/16 at 0234 by JAQUELINE VARGAS RN GVR GVR checked at 0200. Unable to draw back on syringe. 15cc of water used to assess tube patency. Patient almost immediately started gagging, but did not vomit. After water instillation bruna back 30cc on contents. Patient unable to tolerate reinstallation of contents. Charge notified and assessed, and states not to reinstill contents. Feedings resumed, and HOB remains at 35-40 degrees. Will continue to monitor.
[2016-10-10 03:54] VITALS: PULSE 68
[2016-10-10 05:07] LABS: BASOPHILS % (AUTO) 0.2 % (0-3); EOSINOPHILS % (AUTO) 0.7 % (0-5); MONOCYTES % (AUTO) 6.4 % (4-12); Mean Corpuscular Hemoglobin 32.5 pg (27.0-35.0); Mean Corpuscular Volume 91.9 fL (81-100); NEUTROPHILS % (AUTO) 82.6 % (40-74); Platelet Count 106 bil/L (150-400)
[2016-10-10] MEDS: Ondansetron 2 mg/mL 2 mL Inj IVPUSH PRN ×4 (05:51→21:19)
[2016-10-10] MEDS: HYDROmorphone 1 mg/mL Inj IVPUSH PRN ×2 (05:54→14:32)
[2016-10-10 05:58] VITALS: BP 167/71; PULSE 70; RESP 18; O2SAT 93
[2016-10-10 08:00] VITALS: PULSE 68
[2016-10-10] MEDS ORDERED: Potassium Chloride 20 mEq/15 mL 15mL Oral Soln PO ONE (08:05)
[2016-10-10] MEDS: buPROPion SR 150 mg ER12 Tablet PO SCH ×2 (08:30→20:30)
[2016-10-10] MEDS: Pantoprazole 4 mg/mL 10 mL Inj IVPUSH SCH ×2 (08:49→17:00)
[2016-10-10] MEDS: Fluticasone 100 mCg Inhaler INHALATION SCH ×2 (08:50→21:27)
--- NOTE | 2016-10-10 10:13 | PCM.PNMED ---
Subjective Date of Service October 10, 2016 Subjective GI progress note Overnight patient did well to Dobbhoff placement. Has been receiving titrated feedings. Dr. Jurado saw the patient yesterday and his recommendations are in his note. Currently patient does not list a PEG tube placed or EGD. Overall the patient seems to be done better. Exam Vital Signs Vital Sign - Last Date Time Temp Pulse Resp B/P Pulse Ox O2 Delivery O2 Flow Rate FiO2 10/10/16 05:58 37.0 70 18 167/71 93 Room Air Intake and Output 10/09/16 10/09/16 10/10/16 Cumulative From/Thru 15:00 23:00 07:00 10/08/16 15:43 - 10/10/16 06:47 Intake Total 1496 ml 1409 ml 4765 ml Output Total 1000 ml 1875 ml 6300 ml Balance 496 ml -466 ml -1535 ml Intake Oral 200 ml 200 ml 500 ml IV Total 1296 ml 1089 ml 4145 ml Tube Feeding 80 ml 80 ml Tube Irrigant 40 ml 40 ml Output Urine Total 1000 ml 1875 ml 6300 ml # Voids 2 7 # Bowel Movements 0 0 Exam General: no acute distress HEENT: Dobbhoff in place Cardio: Regular rate and rhythm Respiratory: CTA bilaterally with coarse and decreased breath sounds Abdomen: Soft, bowel tones difficult to auscultate Extremities: No edema Skin: Dark pigmentation on neck and upper chest likely due to radiation Psych: Appropriate mood and affect Lab and Diagnostics Result Diagram: 10/10/16 0500 10/10/16 0500 X-Rays, CTs and MRIs PROCEDURE: US RETROPERITONEAL SONOGRAM ([id number]) INDICATIONS: acute kidney failure TECHNIQUE: Real-time scanning was performed of the kidneys and bladder, with image documentation. COMPARISON: None. FINDINGS: Kidneys: Kidneys are normal in size. Right kidney measures 11.8 cm long; left kidney measures 11.9 cm long. Right renal cortical thickness is 1.4 cm; left renal cortical thickness is 2.0 cm. Renal cortical echotexture is normal. No hydronephrosis or nephrolithiasis. No suspicious solid mass lesions. Bladder: Bladder appears grossly normal. Post void was not evaluated. Miscellaneous: No free pelvic fluid. IMPRESSION: Grossly normal appearance of the kidneys. Dictated by: Hemanth Nash RRDino Interpreted: Bernice Weiss MD on 10/09/2016 at 8:48 Assessment & Plan 56-year-old with progressive dysphagia secondary radiation therapy for squamous cancer of the throat that is stage IV. At this time the patient is tolerating the Dobbhoff well and does not wish to proceed to EGD or PEG tube placement. This may become necessary in the future but he wishes to hold off at this time. Continue to follow the patient but currently have no plans for intervention. Thank you for allowing us to participate in the care of this patient VTE Mechanical Devices: Intermittant Pneumatic CD Resuscitation Status: DNR/DNI:Do Not Resuscitate/Intubate Attending Statement Patient seen and examined. Agree with assessment and plan as described by Dr Reynoso. Had a little nausea this evening, but otherwise has well tolerated TF's since yesterday evening. Received more XRT today. Jeferson Reynoso DO October 10, 2016 10:13 Cristopher Leiva MD October 10, 2016 18:53
[2016-10-10] MEDS ORDERED: Magnesium Sulf 4 Gm/100 mL H2O 4 GM in IV Premix 1 EACH IV ONE (10:40)
--- NOTE | 2016-10-10 10:53 | NUR ---
OFF FLOOR TO RADIATION IV line was saline locked. TF disconnected and NGT flushed with 40ml water slowly. Patient stood and transferred into wheelchair for transport over for radiation appointment.
[2016-10-10] MEDS: 0.9% Sodium Chloride 250 ML IV SCH (11:45)
--- NOTE | 2016-10-10 12:32 | NUR ---
BACK ON FLOOR Returned from radiation @ 1135. IV fluids reconnected, Mg rider started. [facility] eliecer silvadene cream to anterior neck. Tolerating sips of ice water without any issue.
--- NOTE | 2016-10-10 13:28 | NUR ---
NUTRITION FOLLOW-UP: Assess: 56 YO M with left hypopharynx squamous cell carcinoma admitted for severe dehydration. Pt has been experiencing constant nausea, poor appetite, and taste/texture changes and his lower dentures no longer fit. Pt has had ~20kg wt loss x6 months (~20% wt loss x6 months= significant). Pt was originally planning on getting PEG placed to receive TF at home for at least 90 days. PEG placement was cancelled by oncologist and NGT was placed instead. TF was started 10/09 and currently running at trophic rate of 10ml/hr. Pt has been tolerating well. No BM yet. Pt is taking in only sips of water. Pt may be showing some signs of re-feeding as high Mg and K have dropped overnight. Will continue to monitor electrolyte trends closely. PMHX: COPD, tobacco, ETOH, cluster headaches, pneumothorax. LABS: Na 146, K 3.2, Bun 45, cna caregiver 2.17, Mg 1.1, Alb 3.5 MEDICATIONS: Reviewed. Zofran, NaCL @ 75ml/hr GI: 0 BM ANTHROPOMETRICS: Wt: 76.9 kg, BMI 20.6kg/m2, ~20% wt loss x6 months. UBW: 96kg, IBW: 91.8kg NUTRITION SUPPORT: Jevity 1.5 @10ml/hr ESTIMATED NEEDS: Calories: 6174-5437 kcal/day (30-35 kcal/kg BW) Protein: 90-135 g/day (1.0-1.5 g/kg IBW) Fluids: ~1925-2310ml/day (25-30ml/kg) NUTRITION DIAGNOSIS: 1) Severe pro/kcal malnutrition related to chronic disease as evidence by 20% wt loss x6 months, PO less than 75% of needs for greater than 1 month and difficulty chewing/swallowing. --PERSISTS INTERVENTION: 1) Due to pt's persistent inability to maintain his weight and consume adequate nutrition orally, he would greatly benefit from PEG placement and nutrition support. Pt would benefit from TF for at least 3 months. 2) Recommend continue TF of Jevity 1.5 @ 10ml/hr for 24hrs to establish tolerance. If tolerated, recommend advance slowly towards goal rate as pt has not been tolerating much PO intake over the last couple weeks and may be showing signs of re-feeding with drop in Mg and K. 3) Recommend advance TF by 10ml q 6 hrs until reach goal rate of 75ml/hr to provide 2587kcal and 110g pro (100% estimated needs). Recommend flush 40ml q 4 hrs while pt is on IVF. If IVF is stopped, recommend flush 85ml q 3 hrs to provide an additional 680ml/day. 4) Adjust fluid flush and TF goal rate if pt is able to tolerate some PO intake. 5) Will continue to monitor electrolyte trends closely for further signs of re-feeding. MONITOR/EVALUATE: TF myke/advc, Weight, PO intake?, GI, labs, POC, nutrition status. Follow per high nutrition risk guidelines.
--- NOTE | 2016-10-10 14:59 | PCM.PNMED ---
Subjective Date of Service October 10, 2016 Subjective Dobhoff placed and tube feeding being advanced to goal. Exam Vital Signs Vital Sign - Last Date Time Temp Pulse Resp B/P Pulse Ox O2 Delivery O2 Flow Rate FiO2 10/10/16 08:00 68 10/10/16 05:58 37.0 18 167/71 93 Room Air Intake and Output 10/09/16 10/09/16 10/10/16 Cumulative From/Thru 15:00 23:00 07:00 10/08/16 15:43 - 10/10/16 06:47 Intake Total 1496 ml 1409 ml 4765 ml Output Total 1000 ml 1875 ml 6300 ml Balance 496 ml -466 ml -1535 ml Intake Oral 200 ml 200 ml 500 ml IV Total 1296 ml 1089 ml 4145 ml Tube Feeding 80 ml 80 ml Tube Irrigant 40 ml 40 ml Output Urine Total 1000 ml 1875 ml 6300 ml # Voids 2 7 # Bowel Movements 0 0 Exam chronically sick looking cachectic man,dehydrated with sunken eyes dry mucus membranes,no oral thrush clear chest tachycardic,no murmur soft abdomen,+ BS,Dubhoff in place no CVAT no edema alert and oriented x3 IVs and Medications Medications Reviewed: Medications were reviewed in detail Lab and Diagnostics Result Diagram: 10/10/16 0500 10/10/16 0500 X-Rays, CTs and MRIs PROCEDURE: US RETROPERITONEAL SONOGRAM ([id number]) INDICATIONS: acute kidney failure TECHNIQUE: Real-time scanning was performed of the kidneys and bladder, with image documentation. COMPARISON: None. FINDINGS: Kidneys: Kidneys are normal in size. Right kidney measures 11.8 cm long; left kidney measures 11.9 cm long. Right renal cortical thickness is 1.4 cm; left renal cortical thickness is 2.0 cm. Renal cortical echotexture is normal. No hydronephrosis or nephrolithiasis. No suspicious solid mass lesions. Bladder: Bladder appears grossly normal. Post void was not evaluated. Miscellaneous: No free pelvic fluid. IMPRESSION: Grossly normal appearance of the kidneys. 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 # Acute renal failure due to poor oral intake due to dysphagia and intractable vomiting, improving -Initial Cr 2.9 from baseline of 1 on 09/24 -NS at 75 ml/h -renal US normal -initially considered PEG tube per patient preference. but after discussion with oncologist and GI ,decided to go on Dobbhoff for temporary feeding hoping his dysphagia will improve after radiation In few weeks. Plan to discharge with Dobbhoff -will continue IVF at lower rate until goal tube feedings achieved # Intractable vomiting due to chemo -zofran iv prn -protonix iv # dysphagia due to throat cancer - as above -Continue radiation until Wednesday 10/11 per oncology #hypomagnesemia due to vomiting -initial Mg 1.0 and repleted # history of COPD -c/w Qvar -stable now # anemia and leukopenia due to chemo -monitor for now # history of cluster headache -stable # current smoker -patient cutting down smoking recently -c/w home fentanyl patch ppx possibly lovenox tmrw after PEG discussed code status ,he is DNR/DNI ,he names his of 40 yrs Bernice ( she says they never had legal marriage but lived for 40 yrs ) at [phone] and his older brother Tristan at [phone] as POA inpatient Disposition: Possible discharge to home with Dobbhoff tomorrow if continues to improve VTE Mechanical Devices: Intermittant Pneumatic CD Resuscitation Status: DNR/DNI:Do Not Resuscitate/Intubate Colton Brice MD October 10, 2016 14:59
--- NOTE | 2016-10-10 15:52 | NUR ---
Social Work- Readiness for Discharge Data: EMR reviewed. Pt is on day 2 of hospitalization for severe dehydration per H&P. Pt is not medically stable, anticipate 1-2 more days. Oncology is following. Pt to receive radiation today. Pt will discharge with feeding tube for 2-3 weeks after hospitalization. [facility] is following pt, access given. Clinical information has been faxed to [facility]. SW spoke with pt and at bedside regarding discharge plan. SW explained role of Home Health. Pt declined Home Health at this time, as he is not homebound. SW provided contact information for [facility], all updated and agreeable to plan. Pt to discharge home with [facility] to assist with tube feeds, to transport via POV. SW will continue to follow. Assessment: Pt who will require tube feeds at discharge. Plan:[facility] is following pt. Pt to discharge home with [facility] to assist with tube feeds, to transport via POV. SW will continue to follow. BRADLEY Cespedes
[2016-10-10 15:54] VITALS: BP 158/72; PULSE 71; RESP 17; O2SAT 93
--- NOTE | 2016-10-10 16:22 | NUR ---
TF/PAIN Patient has tolerated TF through dobhoff @ 10ml/hr fairly well. c/o nausea x1 with relief obtained by zofran IVP. Less than 10ml residual in NGT. Continue to monitor. Plan to advance rate tonight @ 2200. c/o throat pain 5/10, applied silvadene cream topically and administered 1mg IV dilaudid. That was effetive at bringing pain down to a 2/10 which is tolerable for him.
[2016-10-10] MEDS: Heparin 5,000 Unit/mL Inj SUBQ SCH (17:00)
[2016-10-10] MEDS ORDERED: Promethazine Inj 25 MG in 0.9% Sodium Chloride 50 ML IM ONE (20:15)
[2016-10-10 20:39] VITALS: BP 177/75; PULSE 56; RESP 18; O2SAT 97
--- NOTE | 2016-10-10 23:12 | NUR ---
Night hospitalist paged/ Tube feed Nausea and vomiting throughout shift. Nausea and vomiting would get worse when tube feed was going. IV Promethazine and Zofran ineffective. Residual checked. Pt. had 70cc of residual. Pt. had only had 10cc of tube feed so far this shift. Night hospitalist Sabine COCHRAN paged. Sabine COCHRAN ordered to stop the tube feed. Tube feed stopped. Pt. is experiencing less nausea, and is no longer vomiting. Will continue to monitor.
[2016-10-11] MEDS: HYDROmorphone 1 mg/mL Inj IVPUSH PRN ×2 (01:02→14:06)
[2016-10-11] MEDS: Heparin 5,000 Unit/mL Inj SUBQ SCH ×4 (01:05→23:48)
[2016-10-11 05:32] LABS: BASOPHILS % (AUTO) 0 % (0-3); EOSINOPHILS % (AUTO) 0.3 % (0-5); MONOCYTES % (AUTO) 3.6 % (4-12); Mean Corpuscular Hemoglobin 31.4 pg (27.0-35.0); NEUTROPHILS % (AUTO) 81.8 % (40-74); Platelet Count 99 bil/L (150-400)
[2016-10-11 05:43] VITALS: BP 153/66; PULSE 55; RESP 18; O2SAT 96
[2016-10-11] MEDS ORDERED: Magnesium Sulf 2 Gm/50mL Water 2 GM in IV Premix 1 EACH IV ONE (06:45)
[2016-10-11] MEDS ORDERED: Potassium Chloride 20 mEq/15 mL 15mL Oral Soln PO ONE (06:45)
[2016-10-11] MEDS ORDERED: ProchlorPERazine 5 mg/mL 2 mL Inj IV ONE (07:00)
[2016-10-11] MEDS: Pantoprazole 4 mg/mL 10 mL Inj IVPUSH SCH ×2 (07:53→16:22)
[2016-10-11] MEDS: Fluticasone 100 mCg Inhaler INHALATION SCH ×2 (07:54→20:07)
[2016-10-11] MEDS: buPROPion SR 150 mg ER12 Tablet PO SCH ×2 (07:57→20:01)
[2016-10-11] MEDS ORDERED: Lactulose 20 Gm/30 mL 30 mL Syrup PO ONE (10:15)
--- NOTE | 2016-10-11 10:42 | NUR ---
NUTRITION FOLLOW-UP: Assess: 56 YO M with left hypopharynx squamous cell carcinoma admitted for severe dehydration. Pt has been experiencing constant nausea, poor appetite, and taste/texture changes and his lower dentures no longer fit. Pt has had ~20kg wt loss x6 months (~20% wt loss x6 months= significant). Pt was originally planning on getting PEG placed to receive TF at home for at least 90 days. PEG placement was cancelled by oncologist and NGT was placed instead. TF was started 5/10 & were tolerated at 10ml/hr for most of the day. Pt experienced some n/v overnight and TF were placed on hold. This may be due to daily radiation, 0 BM for multiple days or due to the fact that pt is not use receiving continual feedings. TF was re-started this AM at 10ml/hr. MD requesting that TF be advanced by 20ml q 3 hrs today to reach TF goal rate quicker, however due to minimal PO intake for multiple weeks, persistent n/v and no BM, this RD is concerned that this will lead to intolerance of TF and put pt at higher risk for re-feeding. RN is aware of concerns and she will monitor pt's TF tolerance closely. Pt is tolerating only sips of water. PMHX: COPD, tobacco, ETOH, cluster headaches, pneumothorax, left hypopharynx squamous cell carcinoma LABS: Na 147, K 3.2, Bun 42, Chemical Dependency Nurse 1.87, Glu 112, Alb 3.5 MEDICATIONS: Reviewed. Zofran, Lactulose GI: 0 BM ANTHROPOMETRICS: Wt: 76.9 kg, BMI 20.6kg/m2, ~20% wt loss x6 months. UBW: 96kg, IBW: 91.8kg NUTRITION SUPPORT: Jevity 1.5 @10ml/hr ESTIMATED NEEDS: Calories: 4454-3521 kcal/day (30-35 kcal/kg BW) Protein: 90-135 g/day (1.0-1.5 g/kg IBW) Fluids: ~1925-2310ml/day (25-30ml/kg) NUTRITION DIAGNOSIS: 1) Severe pro/kcal malnutrition related to chronic disease as evidence by 20% wt loss x6 months, PO less than 75% of needs for greater than 1 month and difficulty chewing/swallowing. --PERSISTS INTERVENTION: 1) Due to pt's persistent inability to maintain his weight and consume adequate nutrition orally, he would greatly benefit from PEG placement and nutrition support. Pt would benefit from TF for at least 3 months. 2) Recommend continue TF of Jevity 1.5 @ 10ml/hr. If tolerated, STRONGLY recommend advance TF slowly towards goal rate as pt has not been tolerating much PO intake over the last couple weeks and may be showing signs of re-feeding with drop in Mg and K. 3) Recommend advance TF by 10ml q 6 hrs until reach goal rate of 75ml/hr to provide 2587kcal and 110g pro (100% estimated needs). Recommend flush 40ml q 4 hrs while pt is on IVF. If IVF is stopped, recommend flush 85ml q 3 hrs to provide an additional 680ml/day. 4) Adjust fluid flush and TF goal rate if pt is able to tolerate some PO intake. 5) Will continue to monitor electrolyte trends closely for further signs of re-feeding. 6) Recommend scheduled bowel regimen for pt 7) STRONGLY recommend holding off discharge until pt has reached TF goal rate and is able to tolerate TF well. MONITOR/EVALUATE: TF myke/advc, BM, Weight, PO intake?, GI, labs, POC, nutrition status. Follow per high nutrition risk guidelines.
--- NOTE | 2016-10-11 12:01 | NUR ---
rn trainingsecurity assessor note: Met with patient in Radiation and Bernice, his significant other to see how he is doing. Patient reports Tube Feedings restarted this morning and so far he is tolerating them. Patient states he feels nausea was do to "personal issues" and he was so upset. Patient states he tolerated tube feedings for 12 hours, then he got upset and started "throwing up". patient reports they don't want me to use a straw, but that is the only way to get it down. I explained to patient the reason why a straw is not recommended is because it causes the patient to swallow air. They recommend taking sips or using a spoon. No care needs identified at this time. Will continue to follow and provided assistance as needed. Nena Paige, RN, OCN rn trainingmerchandiser retail representative
--- NOTE | 2016-10-11 12:37 | NUR ---
Radiation Patient was taken to radiation via wheelchair at 1046 and was back in room at 1217. Tube feeding restarted and increased to 30mls per hour. IV fluids restarted.
--- NOTE | 2016-10-11 13:07 | NUR ---
Social Work: Continued Discharge Planning D: Pt is on day 3 of hospitalization. stated that pt could discharge when pt advanced to goal of 75cc of Jevity. SW spoke with RN at 1100 today, and RN did not think pt would advance to goal until later this evening or tomorrow. SW updated Jax from [facility] on pt's progress and stated pt will not discharge until pt has advanced to goal. Pt is not likely to discharge home today. SW will continue to follow. A: Pt to return home with Dobbhoff tubes and deemed medically necessary to receive infusion services for tube feeding at home. P: Pt to return home with via POV. Pt who has been accepted by [facility] for tube feeds. SW to contact [facility] when pt has met goal of 75cc of Jevity and is ready to discharge. BRADLEY Mauro
[2016-10-11 13:48] VITALS: BP 153/72; PULSE 63; RESP 18; O2SAT 92
--- NOTE | 2016-10-11 13:50 | PCM.PNMED ---
Subjective Date of Service October 11, 2016 Subjective GI progress note Overnight the patient did not tolerate the trickle feeds due to increased nausea. Patient states that this was probably due to his family being around causing undue anxiety. Trickle feeds were initiated again this morning and on exam the patient seemed to be tolerating them well. Patient titrating up to goal. Patient denies other review symptoms. Exam Vital Signs Vital Sign - Last Date Time Temp Pulse Resp B/P Pulse Ox O2 Delivery O2 Flow Rate FiO2 10/11/16 05:43 37.3 55 18 153/66 96 Room Air Intake and Output 10/10/16 10/10/16 10/11/16 Cumulative From/Thru 15:00 23:00 07:00 10/08/16 15:43 - 10/11/16 06:03 Intake Total 1298 ml 1436 ml 955 ml 8454 ml Output Total 1000 ml 1075 ml 8375 ml Balance 1298 ml 436 ml -120 ml 79 ml Intake Oral 500 ml 200 ml 1200 ml IV Total 1298 ml 748 ml 755 ml 6946 ml Tube Feeding 108 ml 188 ml Tube Irrigant 80 ml 120 ml Output Urine Total 1000 ml 1025 ml 8325 ml Emesis 50 ml 50 ml # Voids 7 # Bowel Movements 0 0 Exam General: no acute distress HEENT: Dobbhoff in place and triple feeds Cardio: Regular rate and rhythm Respiratory: CTA bilaterally with coarse and decreased breath sounds Abdomen: Soft, bowel tones difficult to auscultate Extremities: No edema Skin: Radiation changes Psych: Appropriate mood and affect IVs and Medications Medications Reviewed: Medications were reviewed in detail Lab and Diagnostics Result Diagram: 10/11/16 0500 10/11/16 0500 X-Rays, CTs and MRIs PROCEDURE: US RETROPERITONEAL SONOGRAM ([id number]) INDICATIONS: acute kidney failure TECHNIQUE: Real-time scanning was performed of the kidneys and bladder, with image documentation. COMPARISON: None. FINDINGS: Kidneys: Kidneys are normal in size. Right kidney measures 11.8 cm long; left kidney measures 11.9 cm long. Right renal cortical thickness is 1.4 cm; left renal cortical thickness is 2.0 cm. Renal cortical echotexture is normal. No hydronephrosis or nephrolithiasis. No suspicious solid mass lesions. Bladder: Bladder appears grossly normal. Post void was not evaluated. Miscellaneous: No free pelvic fluid. IMPRESSION: Grossly normal appearance of the kidneys. Dictated by: Hemanth Nash RR Interpreted: Bernice Weiss MD on 10/09/2016 at 8:48 Assessment & Plan 56-year-old with progressive dysphagia secondary radiation therapy for squamous cancer of the throat that is stage IV. At this time the patient is tolerating the Dobbhoff well and does not wish to proceed to EGD or PEG tube placement. This may become necessary in the future but he wishes to hold off at this time. At this time we will sign off this patient. Any additional questions feel free to ask. If the patient changes his mind about having any intervention please reconsult. Thank you for allowing us to participate in the care of this patient VTE Mechanical Devices: Intermittant Pneumatic CD Resuscitation Status: DNR/DNI:Do Not Resuscitate/Intubate Attending Statement Patient seen and examined. Agree with assessment and plan as per Jeferson Mays DO October 11, 2016 13:50 Cristopher Leiva MD October 11, 2016 17:00
[2016-10-11] MEDS: 0.9% Sodium Chloride 250 ML IV SCH (14:06)
--- NOTE | 2016-10-11 15:25 | NUR ---
GI/TF Tube feeding restarted this morning and has been titrated per MD orders. Up to 50mLs per hour. Compazine administered prior to tube feeding being started. Patient has had no complaints of nausea. Bowel tones present. No bowel movement during this hospitalization. Lactulose administered, flatus with out a bowel movement. Patient states that his anxiety and stress was a major cause in intolerance of tube feed and has been manageable today. Continuing titration or tube feedings, hourly rounding, and assessing discomfort and anxiety.
--- NOTE | 2016-10-11 16:33 | PCM.PNMED ---
Subjective Date of Service October 11, 2016 Subjective Tube feedings stopped overnight due to nausea and vomiting. Restarted today. Kidney function continues to improve. Undergoing radiation daily. Exam Vital Signs Vital Sign - Last Date Time Temp Pulse Resp B/P Pulse Ox O2 Delivery O2 Flow Rate FiO2 10/11/16 13:48 36.9 63 18 153/72 92 Room Air Intake and Output 10/10/16 10/10/16 10/11/16 Cumulative From/Thru 15:00 23:00 07:00 10/08/16 15:43 - 10/11/16 06:03 Intake Total 1298 ml 1436 ml 955 ml 8454 ml Output Total 1000 ml 1075 ml 8375 ml Balance 1298 ml 436 ml -120 ml 79 ml Intake Oral 500 ml 200 ml 1200 ml IV Total 1298 ml 748 ml 755 ml 6946 ml Tube Feeding 108 ml 188 ml Tube Irrigant 80 ml 120 ml Output Urine Total 1000 ml 1025 ml 8325 ml Emesis 50 ml 50 ml # Voids 7 # Bowel Movements 0 0 Exam chronically sick looking cachectic man, NGT in place ,no oral thrush clear chest tachycardic,no murmur soft abdomen,+ BS,Dubhoff in place no CVAT no edema alert and oriented x3 IVs and Medications Medications Reviewed: Medications were reviewed in detail Lab and Diagnostics Result Diagram: 10/11/16 0500 10/11/16 0500 X-Rays, CTs and MRIs PROCEDURE: US RETROPERITONEAL SONOGRAM ([id number]) INDICATIONS: acute kidney failure TECHNIQUE: Real-time scanning was performed of the kidneys and bladder, with image documentation. COMPARISON: None. FINDINGS: Kidneys: Kidneys are normal in size. Right kidney measures 11.8 cm long; left kidney measures 11.9 cm long. Right renal cortical thickness is 1.4 cm; left renal cortical thickness is 2.0 cm. Renal cortical echotexture is normal. No hydronephrosis or nephrolithiasis. No suspicious solid mass lesions. Bladder: Bladder appears grossly normal. Post void was not evaluated. Miscellaneous: No free pelvic fluid. IMPRESSION: Grossly normal appearance of the kidneys. 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 # Acute renal failure due to poor oral intake due to dysphagia and intractable vomiting, improving -Initial Cr 2.9 from baseline of 1 on 09/24 -NS at 75 ml/h -renal US normal -initially considered PEG tube per patient preference. but after discussion with oncologist and GI ,decided to go on Dobbhoff for temporary feeding hoping his dysphagia will improve after radiation In few weeks. Plan to discharge with Dobbhoff -will continue IVF at lower rate until goal tube feedings achieved -Tube feeding held overnight due to nausea and vomiting. Restarted today. Titrate to goal of 75ml/h. we will discharge tomorrow when goal achieved. Pain medication and nausea medication also changed to liquid. Advised patient to avoid IV pain medications tonight # Intractable vomiting due to chemo -zofran iv prn -protonix iv # dysphagia due to throat cancer - as above -Continue radiation until Wednesday 10/11 per oncology #hypomagnesemia due to vomiting -initial Mg 1.0 and repleted # history of COPD -c/w Qvar -stable now # anemia and leukopenia due to chemo -monitor for now # history of cluster headache -stable # current smoker -patient cutting down smoking recently -c/w home fentanyl patch ppx possibly lovenox tmrw after PEG discussed code status ,he is DNR/DNI ,he names his of 40 yrs Bernice ( she says they never had legal marriage but lived for 40 yrs ) at [phone] and his older brother Tristan at [phone] as POA inpatient Disposition: Possible discharge to home with Dobbhoff tomorrow if continues to improve VTE Mechanical Devices: Intermittant Pneumatic CD Resuscitation Status: DNR/DNI:Do Not Resuscitate/Intubate Colton Brice MD October 11, 2016 16:33
[2016-10-11 20:29] VITALS: BP 161/72; PULSE 71; RESP 18; O2SAT 97
--- NOTE | 2016-10-11 22:10 | NUR ---
TF/meds Increased TF to goal rate of 75ml/hour this shift. Continues to tolerate well. Denies any N/V. Denies having any pain or discomfort currently. Refused Wellbutrin medication this evening, but agreeable to Flovent inhaler and Silvadene cream.
[2016-10-11] MEDS: oxyCODONE 1 mg/mL 5 mL Liquid PO PRN (23:48)
--- NOTE | 2016-10-12 03:42 | PROG NOTE ---
[address] [address] PROGRESS NOTE PATIENT: JAYLAN SNOW : 1960 MR#: [id number] ADMIT: 10/08/2016 JOB ID: [id number] DATE: 10/11/2016 DIAGNOSES: 1. Acute kidney injury, due to cisplatin and hypovolemia, improving. 2. Hypopharynx squamous cell carcinoma, completing concurrent chemoradiotherapy. SUBJECTIVE: Today he feels better and more optimistic. So far, he has tolerated Dobhoff tube well, and he feels he can handle it for the next two weeks. Yesterday he had some issues with nausea, but today that is resolved. OBJECTIVE: He looks comfortable and in better spirits. Awake, alert, oriented x3. Blood pressure 161/72, heart rate 71, temperature 36.9. LABORATORY DATA: Hemoglobin has dropped further to 8.3. Creatinine is slowly improving and is down to 1.87. PLAN: 1. He is expecting discharge home tomorrow. Tube freed is currently at 50 mL/h, and the goal is 75 mL/h. 2. I will arrange for daily IV hydration at our clinic from Friday through Friday next week, and will check his labs on both Friday and on Friday. I will arrange a followup oncology visit with me on Friday, October 18. We plan to keep Dobbhoff in place for two weeks, and by then his radiation pharyngitis should have sufficiently improved to tolerate oral intake.
[2016-10-12 04:28] VITALS: BP 122/56; PULSE 73; RESP 16; O2SAT 93
[2016-10-12] MEDS: buPROPion SR 150 mg ER12 Tablet PO SCH (08:30)
[2016-10-12] MEDS: Fluticasone 100 mCg Inhaler INHALATION SCH (08:45)
[2016-10-12] MEDS: Pantoprazole 4 mg/mL 10 mL Inj IVPUSH SCH ×2 (08:45→16:17)
[2016-10-12] MEDS: Heparin 5,000 Unit/mL Inj SUBQ SCH ×2 (08:54→16:18)
[2016-10-12 09:14] LABS: BASOPHILS % (AUTO) 0.4 % (0-3); EOSINOPHILS % (AUTO) 1.6 % (0-5); MONOCYTES % (AUTO) 7.5 % (4-12); Mean Corpuscular Volume 91.9 fL (81-100); NEUTROPHILS % (AUTO) 66.5 % (40-74); Platelet Count 114 bil/L (150-400)
[2016-10-12 09:16] VITALS: BP 116/73; PULSE 77; RESP 14; O2SAT 100
[2016-10-12] MEDS ORDERED: Potassium Chloride Inj 30 MEQ in Dextrose 5% 500 ML IV ONE (10:10)
[2016-10-12] MEDS ORDERED: Potassium Chloride 20 mEq/15 mL 15mL Oral Soln PO ONE (10:10)
[2016-10-12] MEDS: oxyCODONE 1 mg/mL 5 mL Liquid PO PRN (11:02)
[2016-10-12] MEDS ORDERED: Magnesium Sulf 2 Gm/50mL Water 2 GM in IV Premix 1 EACH IV ONE (11:10)
--- NOTE | 2016-10-12 11:34 | NUR ---
Social Work- Readiness for Discharge Data: EMR reviewed. Pt is on day 4 of hospitalization for severe dehydration per H&P. Pt is at goal rate for tube feeds. Pt likely to discharge today, MANAGER INVESTMENT awaiting orders. MANAGER INVESTMENT met with pt at bedside regarding potential discharge, pt agreeable to discharge. Pt to discharge home with Bernice to transport via POV. Pt to discharge home with via POV and tube feeds through [facility]. SW will continue to follow. Assessment: Pt who will need tube feeds at discharge. Plan: Pt to discharge home with via POV and tube feeds through [facility]. All updated and agreeable to plan. SW will continue to follow. BRADLEY Cespedes
[2016-10-12] MEDS: 0.9% Sodium Chloride 250 ML IV SCH (13:29)
[2016-10-12 14:36] LABS: Magnesium 1.4 mg/dL (1.6-2.6)
--- NOTE | 2016-10-12 14:50 | PCM.DIMED ---
Discharge Instructions Date of Service October 12, 2016 Dates of Hospitalization October 08, 2016 at 15:33 Discharge Diagnosis Discharge Diagnosis # Acute renal failure due to poor oral intake due to dysphagia and intractable vomiting, improving # Intractable vomiting # dysphagia due to throat cancer #hypomagnesemia due to vomiting # history of COPD # anemia and leukopenia due to chemo # history of cluster headache # current smoker Diet Other (tube feeding via Dubbhoff) Activity Limited until seen by PCP Call your provider Fever or Chills, Shortness of breath, Bleeding, Chest pain, Vomitting, Excessive diarrhea, Weakness (unilateral) Patient Instructions you were hospitalized due to acute kidney injury secondary to poor oral intake and vomiting due to dysphagia of throat cancer.Dubbhoff feeding tube placed. Please continue tube feeding at home. Please follow-up with Dr jurado on a Friday and get her kidney function test and magnesium level checked. Please continue medication is for pain and nausea. Follow-up Provider: Dawson Forman MD Follow-up with PCP in: 2 weeks Provider: Ana M Jurado MD Follow-up in: 1 week (on saturday 10/14) Colton Brice MD October 12, 2016 14:50
[2016-10-12] MEDS ORDERED: MAGN400T29 PO (14:52)
[2016-10-12] MEDS ORDERED: POTA20LI2 PO (14:52)
[2016-10-12] MEDS ORDERED: ONDA4TAB12 PO (14:52)
[2016-10-12] MEDS ORDERED: OXYC5SOL11 PO (14:52)
--- NOTE | 2016-10-12 15:03 | PCM.DC.MED ---
Discharge Summary Date of Service October 12, 2016 Dates of Hospitalization Date of Hospital Admission October 08, 2016 at 15:33 Date of Discharge: October 12, 2016 Providers: Admitting Physician: Darrick Mcfarlane MD Primary Care Physician: Dawson Forman MD Attending Physician: Darrick Mcfarlane MD Diagnosis at Time of Discharge Diagnosis at Time of Discharge # Acute renal failure due to poor oral intake due to dysphagia and intractable vomiting, improving # Intractable vomiting # dysphagia due to throat cancer #hypomagnesemia due to vomiting # history of COPD # anemia and leukopenia due to chemo # history of cluster headache # current smoker Consultations Gi dr Leiva oncology Dr Cano Procedures XRay, CTs & MRIs PROCEDURE: US RETROPERITONEAL SONOGRAM ([id number]) INDICATIONS: acute kidney failure TECHNIQUE: Real-time scanning was performed of the kidneys and bladder, with image documentation. COMPARISON: None. FINDINGS: Kidneys: Kidneys are normal in size. Right kidney measures 11.8 cm long; left kidney measures 11.9 cm long. Right renal cortical thickness is 1.4 cm; left renal cortical thickness is 2.0 cm. Renal cortical echotexture is normal. No hydronephrosis or nephrolithiasis. No suspicious solid mass lesions. Bladder: Bladder appears grossly normal. Post void was not evaluated. Miscellaneous: No free pelvic fluid. IMPRESSION: Grossly normal appearance of the kidneys. 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 Cano's office) due to dysphagia, kidney injury, and significant dehydration. Patient states he has been unable to swallow solids for over a month but over the last couple of weeks he has grown progressively unable to swallow liquids. He also said size had some nausea and vomiting without hematemesis. Denies ongoing fever, chills, nausea, vomiting, melena, hematochezia, distention of the abdomen , abdominal pain, change in bowel habits. He had 3 days left on his radiation but this is obviously now on hold. His creatinine was elevated on presentation at 2.9 as always resolving with today's creatinine being 2.54. Calcitonin was indeterminate, patient does show a left shift and thrombocytopenia on the CBC although is undergoing chemotherapy. Patient did not want Dobbhoff NG tube placed but realizes that he needs some enteric nutrition. GI was consult for upper endoscopy as well as possible PEG tube placement. Hospital Course 56 yo unfortunate gentleman with PMH COPD,history of cluster headache,current smoker who was diagnosed with 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 # Acute renal failure due to poor oral intake due to dysphagia and intractable vomiting, improving -Initial Cr 2.9 from baseline of 1 on 09/24 -Treated with NS at 75 ml/h -renal US normal -initially considered PEG tube per patient preference. but after discussion with oncologist and GI ,decided to go on Dobbhoff for temporary feeding hoping his dysphagia will improve after radiation In few weeks. Plan to discharge with Dobbhoff. Continue tube feeding at goal of 75 ml/h # Intractable vomiting -zofran prn -protonix iv # dysphagia due to throat cancer - as above -Completed radiation Wednesday 10/11 per oncology #hypomagnesemia and hypokalemia due to vomiting -initial Mg 1.0 and repleted . Potassium 2.9 -Will discharge on kcl liquid 20meq daily and magnesium oxide. Advised to get levels checked next week and ask Dr. Cano whether to continue or not. Probably may not need it after a few days since vomiting is controlled. # history of COPD -c/w Qvar -stable now # anemia and leukopenia due to chemo # history of cluster headache -stable # current smoker -patient cutting down smoking recently -c/w home fentanyl patch ppx discussed code status ,he is DNR/DNI ,he names his of 40 yrs Bernice ( she says they never had legal marriage but lived for 40 yrs ) at [phone] and his older brother Tristan at [phone] as POA inpatient Disposition: discharge to home with Dobbhoff Exam Vital Signs (Last) Date Time Temp Pulse Resp B/P Pulse Ox O2 Delivery O2 Flow Rate FiO2 10/12/16 09:16 36.8 77 14 116/73 100 Room Air Exam chronically sick looking cachectic man, NGT in place ,no oral thrush clear chest tachycardic,no murmur soft abdomen,+ BS,Dubhoff in place no CVAT no edema alert and oriented x3 Test 10/08/16 18:07 10/08/16 22:19 10/12/16 09:11 10/12/16 14:00 Prothrombin Time 12.2sec (8.1-12.5) Prothromb Time International Ratio 1.14ratio Procalcitonin 0.16ng/mL (0.00-0.08) Hold Castellanos Top Tube Received (Received) Urine Color Straw (YELLOW) Urine Appearance Clear (CLEAR,HAZY) Urine pH 5.5 (5.0-8.0) Urine Specific [place] 1.010 (1.003-1.035) Urine Protein Negativemg/dL (NEG,TRACE) Urine Glucose (UA) Negativemg/dL (NEGATIVE) Urine Ketones 40mg/dL (NEGATIVE) Urine Occult Blood Negative (NEGATIVE) Urine Nitrite Negative (NEGATIVE) Urine Bilirubin Negative (NEGATIVE) Urine Urobilinogen Normalmg/dL (NORMAL) Urine Leukocyte Esterase Negative (NEGATIVE) Urine RBC 0-2/hpf (0-2) Urine WBC 0-5/hpf (0-5) Urine Epithelial Cells Occasional/hpf (NONE-MOD) Urine Crystals None seen (NONE SEEN) Urine Bacteria None/hpf (NONE-FEW) Urine Hyaline Casts None/lpf (NONE) Urine Granular Casts None seen (NONE SEEN) Urine Waxy Casts None seen (NONE SEEN) Urine Red Blood Cell Casts None seen (NONE SEEN) Urine White Blood Cell Casts None seen (NONE SEEN) Urine Mucus None seen (None Seen) Urine Trichomonas None seen (NONE SEEN) Urine Yeast None (NONE SEEN) Urinalysis Comment None Urine Culture Reflexed Not indicated White Blood Count 2.5th/mm3 (3.8-10.1) Red Blood Count 2.84mil/mm3 (4.40-5.80) Hemoglobin 9.1g/dL (13.8-17.2) Hematocrit 26.1% (41.0-50.0) Mean Corpuscular Volume 91.9fL (81-100) Mean Corpuscular Hemoglobin 32.0pg (27.0-35.0) Mean Corpuscular Hemoglobin Concent 34.9% (32.0-37.0) Red Cell Distribution Width 16.0% (12.3-15.4) Platelet Count 114bil/L (150-400) Neutrophils (%) (Auto) 66.5% (40-74) Lymphocytes (%) (Auto) 23.6% (14-46) Monocytes (%) (Auto) 7.5% (4-12) Eosinophils (%) (Auto) 1.6% (0-5) Basophils (%) (Auto) 0.4% (0-3) Total Bilirubin 0.3mg/dL (0.0-1.2) Aspartate Amino Transf (AST/SGOT) 10U/L (0-50) Alanine Aminotransferase (ALT/SGPT) 7U/L (0-44) Alkaline Phosphatase 57U/L (25-150) Total Protein 6.1g/dL (6.4-8.4) Albumin 3.5g/dL (3.4-5.0) Sodium Level 140mEq/L (134-144) Potassium Level 3.6mEq/L (3.5-5.2) Chloride Level 96mEq/L (97-108) Carbon Dioxide Level 30mmol/L (18-29) Blood Urea Nitrogen 46mg/dL (6-24) Creatinine 2.09mg/dL (0.76-1.27) Estimat Glomerular Filtration Rate 35mL/min (>59) Glucose Level 147mg/dL (60-99) Calcium Level 8.5mg/dL (8.5-10.1) Magnesium Level 1.4mg/dL (1.6-2.6) Discharge Medications Discharge Medications Beclomethasone Dipropionate (Qvar) 8.7 Gm Aer.w.adap 2 PUFF INHALATION BID ( Reported) Bupropion ER (Wellbutrin SR) 150 Mg Tablet.er 150 MG PO BID (Reported) Magnesium Oxide (Magox 400) 400 Mg Tablet 400 MG PO BID Prescribed by: CIERA DIEGO MD Nicotine 7 mg/24 hr Patch (Nicotine 7 mg/24 hr Patch) 1 Each Patch.td24 1 PATCH TRANSDERM DAILY (Reported) Potassium Chloride (Potassium Chloride) 20 Meq/15 Ml Liquid 20 MEQ PO DAILY Prescribed by: CIERA DIEGO MD Silver Sulfadiazine (Ssd 25GM Pp) 25 Gm Cr 1 APPLIC TOPICAL TID (Reported) As needed Albuterol Sulfate (Ventolin HFA Inhaler) 200 Puff/18 Gm Inhaler 2 PUFF INH Q4 PRN PRN For Wheezing (Reported) Alprazolam (Alprazolam) 0.5 Mg Tablet 0.5 MG PO TID PRN PRN For Anxiety ( Reported) Benzonatate (Benzonatate) 200 Mg Capsule 200 MG PO TID PRN PRN For Cough ( Reported) Cyproheptadine HCl (Cyproheptadine HCl) 4 Mg Tablet 4 MG PO TID PRN PRN For Eye Irritation (Reported) Hydrocodone-Acetaminophen 5-325 mg (Hydrocodone-Acetaminophen 5-325 mg) 1 Each Tablet 1-2 TABLET PO q4-6 hours PRN PRN For Pain (Reported) Lorazepam (Ativan) 0.5 Mg Tablet 0.5 MG PO TID PRN PRN For Nausea (Reported) Ondansetron ODT (Ondansetron ODT) 4 Mg Tab.rapdis 8 MG PO Q4H PRN PRN For Nausea /Vomiting Prescribed by: CIERA DIEGO MD Sumatriptan Succinate (Sumatriptan Succinate) 6 Mg/0.5 Ml Vial 6 MG SQ BID PRN PRN migraine (Reported) oxyCODONE (oxyCODONE) 5 Mg/5 Ml Solution 5 MG PO Q4H PRN PRN For Severe Pain Prescribed by: CIERA DIEGO MD Followup Plan Disposition: home with home health Discharge Diet: Other (tube feeding via Dubbhoff) Discharge Activity: Limited until seen by PCP Patient Instructions you were hospitalized due to acute kidney injury secondary to poor oral intake and vomiting due to dysphagia of throat cancer.Dubbhoff feeding tube placed. Please continue tube feeding at home. Please follow-up with Dr cano on a Friday and get her kidney function test and magnesium level checked. Please continue medication is for pain and nausea. Follow-up Provider: Dawson Forman MD Follow-up with PCP in: 2 weeks Provider: Ana M Cano MD Follow-up in: 1 week (on saturday 10/14) Time spent 40 minutes copies to: Dawson Forman MD; Ana M Cano MD, Melaku MD October 12, 2016 15:03
--- NOTE | 2016-10-12 16:39 | NUR ---
Discharge Orders for discharge were received. The patient was made aware of the plan to discharge and was agreeable to go. The patient was given teaching on his diagnosis and treatment, signs and symptoms to be aware of, follow up instructions, scripts for new medications and information on new meds. The patient signified understanding of this information. His feeding tube was then flushed and his cath deaccessed by IV therapy. The patient gathered his belongings and was dressed in his own clothes. The patient then ambulated to the main entrance to an awaiting private vehicle. At the time of discharge the patient was alert and oriented, with no complaint of nausea, pain or other difficulty.
== END 2016-10-12 16:36 | disposition home or self-care (01) | DRG 460 ==
LOC: OSC 15:33
PROVIDERS: ADMIT Hospitalist; ATTEND Internal Medicine
DX: N17.9 Acute kidney failure, unspecified (principal); C13.9 Malignant neoplasm of hypopharynx, unspecified; D70.1 Agranulocytosis secondary to cancer chemotherapy; J44.9 Chronic obstructive pulmonary disease, unspecified; R13.19 Other dysphagia; F17.210 Nicotine dependence, cigarettes, uncomplicated; E86.0 Dehydration; E83.42 Hypomagnesemia; Z66 Do not resuscitate

== ENCOUNTER 2016-10-23 12:53 | Inpatient (IN) | payer OTHER ==
[~2016-10-23] VITALS: Ht 193 cm; Wt 79.7 kg
[~2016-10-23 12:53] MED LIST changes: +BENZ200C44 PO; +BUPR150T8 PO; -BUPR150T9 PO; +LORA-302 PO; +MAGN400T29 PO; +NIC7 TRANSDERM; -NICO1PAT5 TRANSDERM; +ONDA4TAB12 PO; +OXYC5SOL11 PO; +POTA20LI2 PO; +SILV25CR4 TOPICAL; -VERA120T5 PO
[2016-10-23 13:07] VITALS: BP 124/67; PULSE 66; RESP 11; O2SAT 99
[2016-10-23] MEDS ORDERED: Ondansetron 2 mg/mL 2 mL Inj IVPUSH PRN (13:10)
[2016-10-23] MEDS ORDERED: 0.9% Sodium Chloride 250 ML ONE (13:16)
--- NOTE | 2016-10-23 13:16 | ED.REPORT ---
HPI-General Illness Date of Service October 23, 2016 ED Provider: Unruly Henry MD Patient is a 56 year old male with a history of throat cancer who was sent from the cancer sent to the ED due to a high potassium level. Associated symptoms include nausea and weakness. He denies abdominal pain or hematochezia. The patient reports that he has had the NG tube in place for two weeks and has not been able to eat food. Patient finished chemotherapy treatment two weeks ago. His last radiation treatment was a week ago. Nursing Notes Stated Complaint: SENT FROM CANCER CARE Chief Complaint: General Complaint Nursing Notes Reviewed: Yes Allergies: Coded Allergies: No Known Allergies (Unverified , 10/08/16) Scheduled Beclomethasone Dipropionate (Qvar) 8.7 Gm Aer.w.adap 2 PUFF INHALATION BID Beclomethasone Dipropionate (Qvar) 8.7 Gm Aer.w.adap 1 PUFF INHALATION BID Bupropion ER (Wellbutrin SR) 150 Mg Tablet.er 150 MG PO BID Magnesium Oxide (Magox 400) 400 Mg Tablet 400 MG PO BID Nicotine 7 mg/24 hr Patch (Nicotine 7 mg/24 hr Patch) 1 Each Patch.td24 1 PATCH TRANSDERM DAILY Potassium Chloride (Potassium Chloride) 20 Meq/15 Ml Liquid 20 MEQ PO DAILY Silver Sulfadiazine (Ssd 25GM Pp) 25 Gm Cr 1 APPLIC TOPICAL TID Scheduled PRN Albuterol Sulfate (Ventolin HFA Inhaler) 200 Puff/18 Gm Inhaler 2 PUFF INH Q4 PRN PRN For Wheezing Alprazolam (Alprazolam) 0.5 Mg Tablet 0.5 MG PO TID PRN PRN For Anxiety Benzonatate (Benzonatate) 200 Mg Capsule 200 MG PO TID PRN PRN For Cough Cyproheptadine HCl (Cyproheptadine HCl) 4 Mg Tablet 4 MG PO TID PRN PRN For Eye Irritation Hydrocodone-Acetaminophen 5-325 mg (Hydrocodone-Acetaminophen 5-325 mg) 1 Each Tablet 1-2 TABLET PO q4-6 hours PRN PRN For Pain Lorazepam (Ativan) 0.5 Mg Tablet 0.5 MG PO TID PRN PRN For Nausea Ondansetron ODT (Ondansetron ODT) 4 Mg Tab.rapdis 8 MG PO Q4H PRN PRN For Nausea /Vomiting Sumatriptan Succinate (Sumatriptan Succinate) 6 Mg/0.5 Ml Vial 6 MG SQ BID PRN PRN migraine oxyCODONE (oxyCODONE) 5 Mg/5 Ml Solution 5 MG PO Q4H PRN PRN For Severe Pain General Time Seen by MD: 13:08 Chief Complaint Other (high potassium) Hx Obtained From: Patient, Other family... Arrived By: Walk-in Associated with: Reports: Nausea, Weakness Recent Healthcare: Recent doctor visit, Recent hospitalization Past Medical History Past Medical History Notes: Code status: full code Past Medical History Throat cancer cluster headaches Reports: Asthma, COPD Past Surgical History hernia repair elbow surgery Smoking History Unknown if Ever Smoker Social History Other Social History: Good social support, Ambulatory Status Independent Review of Systems Full Review of Systems Respiratory: Denies: Non-productive cough, Shortness of breath GI: Reports: Nausea, Denies: Abdominal pain, Hematochezia Skin: Denies Rash Neurologic: Reports: Weakness Complete sys rev & neg: except as marked. Physical Exam Vital Signs Vital Signs Date Time Temp Pulse Resp B/P Pulse Ox O2 Delivery O2 Flow Rate FiO2 10/23/16 14:16 73 14 112/56 97 Room Air 10/23/16 13:07 36.8 66 11 124/67 99 Room Air Initial VS: Reviewed General/Constitutional: Awake, Alert, No acute distress Head / Eyes: Atraumatic, Normocephalic, PERRL, EOMI Respiratory / Chest: Atraumatic, Breath sounds NL, Breath sounds = bilat, No respiratory distress Cardiovascular: Heart rate NL, Regular rhythm, Heart sounds NL, No murmurs Abdomen: Atraumatic, Soft, Non-tender Skin: Atraumatic, Color NL, No rash, Warm, Dry Rectum / Perineum: Atraumatic, No gross blood Coag negative Neurologic: Oriented X3, Speech NL, No motor deficits, No sensory deficits Psychiatric: Affect NL, Mood NL Interpretation & Diagnostics Lab Results Interpretation Result Diagram: 10/23/16 1334 Test 10/23/16 13:34 Sodium Level 135mEq/L (134-144) Potassium Level 5.8mEq/L (3.5-5.2) Chloride Level 96mEq/L (97-108) Carbon Dioxide Level 22mmol/L (18-29) Blood Urea Nitrogen 67mg/dL (6-24) Creatinine 2.74mg/dL (0.76-1.27) Estimat Glomerular Filtration Rate 26mL/min (>59) Glucose Level 99mg/dL (60-99) Calcium Level 9.1mg/dL (8.5-10.1) ECG Interpretation ECG Interpretation: peak T waves Time: 13:16 Interpreted by: ED physician Normal ECG Interpretation: Normal rate (72), Normal sinus rhythm Re-Eval/Medical Decision Med Decision/Clinical Course 56-year-old male history of throat cancer status post radiation one week ago and chemotherapy several weeks ago sent in by oncologist for hyperkalemia, anemia and PEG tube placement. Patient has been hydrated with IV fluids with potassium by oncology the past week daily. Today with potassium 6.6. Sent over for evaluation. Patient with peaked T waves. Given calcium gluconate and Kayexalate and repeat potassium 5.8. Patient's hemoglobin is 7.3. He is guaiac negative. Also with renal failure thought to be due to chemotherapy by oncologist. Patient will be admitted for traction of hyperkalemia, transfusion one unit PRBC and oncology was requesting PEG tube placement. Source of Hx: Old records Time of Eval: 13:28 Re-Evaluation/Progress Note: Discussed code status: full code. Further examined patient and dicussed plan for admit. The patient understands and agrees to the plan for admit. All questions were addressed. Consultation : Referral / Consult Name: Roberto Aiken MD Consulted With: Hospitalist Call Returned at: 14:38 Dental Director: Agrees with eval, Agrees with plan, Accepts admit Counseled Regarding: Diagnosis, Lab results, Need for admission Discharge & Departure Primary Impression: Hyperkalemia Additional Impression: Anemia Anemia type: unspecified type Qualified Code: D64.9 - Anemia, unspecified Disposition: ADMITTED TO HOSPITAL Discharge Condition All VS Reviewed: Yes Condition: Stable Referrals: Dawson Forman MD (PCP) Crit Care Except Billable Proc Time Spent: 30-74 minutes Services Performed: Patient management by me, Time spent at bedside, Reviewing test results, Reviewing imaging, Discussing patient care, Documentation in record, Time with fam/surrogate Scribe Attestation Portions of this note were transcribed by Yue Resendiz. I, Dr. Lefty Leon personally performed the history, physical exam and medical decision-making; I reviewed and confirmed the accuracy of the information in the transcribed note. Signed by: Juvenal Weinberg, 10/23/16 and 1327 copies to: Dawson Forman MD, Ben M MD October 23, 2016 13:16 Dora Resendiz October 23, 2016 13:25
[2016-10-23] MEDS ORDERED: Calcium GLUCOnate 10% (Gm) 1 Gm/10 mL Inj IVPUSH ONE (13:20)
[2016-10-23] MEDS ORDERED: Calcium GLUCOnate 10% 1 Gm/50 mL NS IV ONE ×2 (13:35)
[2016-10-23] MEDS ORDERED: BECL8.7A5 INHALATION (13:51)
[2016-10-23 14:16] VITALS: BP 112/56; PULSE 73; RESP 14; O2SAT 97
[2016-10-23] MEDS ORDERED: Polyethylene Glycol (PEG) 17 Gm Powder PO PRN (14:50)
[2016-10-23] MEDS ORDERED: Alum-Mag Hydrox-Simeth 30 mL Suspension PO PRN (14:50)
[2016-10-23 16:02] VITALS: BP 120/63; PULSE 69; RESP 16; O2SAT 100
[2016-10-23] MEDS: 0.9% Sodium Chloride 1,000 ML IV SCH (16:22)
[2016-10-23 16:33] VITALS: PULSE 70
--- NOTE | 2016-10-23 17:15 | PCM.HPMED ---
Subjective Date of Service October 23, 2016 Primary Provider: Admitting Physician: Roberto Aiken MD Primary Care Physician: Dawson Forman MD Attending Physician: Roberto Aiken MD Chief Complaint: Hyperkalemia History of Present Illness: Ren Jung is a 56-year-old man with stage IV hypopharynx squamous cell carcinoma complicated by dysphagia and past medical history significant for COPD , cluster headache, currently smoking who has presented directly from the oncology clinic due to hyperkalemia. The patient himself denies any changes in his baseline status. He states that if he was not referred by his oncologist he would have not felt the need to come to the hospital. The patient has been having a lot of problems with dysphasia for the last several weeks and has a Dobbhoff placed for tube feeds in anticipation of PEG tube placement. He has persistent nausea and some vomiting which is baseline for him. He denies any abdominal pain or cramps. He does actually no constipation. He denies any fever, chills, sick contacts. He completed his chemotherapy and radiation. At the oncologist office his potassium was noted to be 6.6. Upon repeat measurement his potassium is 35.8. He was given a one-time dose of Kayexalate in the ED. His EKG in the ED was concerning for peaked T waves so he was given calcium gluconate. He previously had episodes of low potassium so he is on daily supplements. Review of Systems: Comprehensive review of systems was performed and is negative except for as noted above in history of present illness Allergies Coded Allergies: No Known Allergies (Unverified , 10/08/16) Home Medications Discharge Medications Beclomethasone Dipropionate (Qvar) 8.7 Gm Aer.w.adap 2 PUFF INHALATION BID ( Reported) Bupropion ER (Wellbutrin SR) 150 Mg Tablet.er 150 MG PO BID (Reported) Magnesium Oxide (Magox 400) 400 Mg Tablet 400 MG PO BID Nicotine 7 mg/24 hr Patch (Nicotine 7 mg/24 hr Patch) 1 Each Patch.td24 1 PATCH TRANSDERM DAILY (Reported) Potassium Chloride (Potassium Chloride) 20 Meq/15 Ml Liquid 20 MEQ PO DAILY Silver Sulfadiazine (Ssd 25GM Pp) 25 Gm Cr 1 APPLIC TOPICAL TID (Reported) As needed Albuterol Sulfate (Ventolin HFA Inhaler) 200 Puff/18 Gm Inhaler 2 PUFF INH Q4 PRN PRN For Wheezing (Reported) Alprazolam (Alprazolam) 0.5 Mg Tablet 0.5 MG PO TID PRN PRN For Anxiety ( Reported) Benzonatate (Benzonatate) 200 Mg Capsule 200 MG PO TID PRN PRN For Cough ( Reported) Cyproheptadine HCl (Cyproheptadine HCl) 4 Mg Tablet 4 MG PO TID PRN PRN For Eye Irritation (Reported) Hydrocodone-Acetaminophen 5-325 mg (Hydrocodone-Acetaminophen 5-325 mg) 1 Each Tablet 1-2 TABLET PO q4-6 hours PRN PRN For Pain (Reported) Lorazepam (Ativan) 0.5 Mg Tablet 0.5 MG PO TID PRN PRN For Nausea (Reported) Ondansetron ODT (Ondansetron ODT) 4 Mg Tab.rapdis 8 MG PO Q4H PRN PRN For Nausea /Vomiting Sumatriptan Succinate (Sumatriptan Succinate) 6 Mg/0.5 Ml Vial 6 MG SQ BID PRN PRN migraine (Reported) oxyCODONE (oxyCODONE) 5 Mg/5 Ml Solution 5 MG PO Q4H PRN PRN For Severe Pain PMH Head and neck cancer status post chemotherapy and radiation followed by Dr. Jurado COPD Cluster headaches Surgical History Inguinal hernia repair Chest tube in 1992 Elbow surgery 1995 Family History Mother of lung cancer at age 65 Social History Hx Alcohol Use: No Hx Substance Use: No (marijuana) Hx Tobacco Use: Yes Smoking Status: Current Every Day Smoker Exam Vital Signs Vital Sign - Last Date Time Temp Pulse Resp B/P Pulse Ox O2 Delivery O2 Flow Rate FiO2 10/23/16 16:02 36.6 69 16 120/63 100 Room Air Exam General: No acute distress, thin, frail looking man in hospital bed. HEENT: Normocephalic, atraumatic. External ears without defect. Pupils equal, round, and reactive to light and accommodation. Anicteric sclerae, moist conjunctivae, and no lid lag. Oropharynx free of erythema and cobble stoning with moist mucosa. NG tube in place. Alopecia. Hard of hearing. Neck: Supple with full range of motion. No jugular venous distension. Increased pigmentation noted around his throat which the patient says started after his radiation treatment. No lymphadenopathy or thyromegaly. Cardiovascular: Regular rate and rhythm with no murmurs, rubs, or gallops appreciated Pulmonary: Clear to auscultation bilaterally with no crackles, wheezes, or rhonchi. Normal respiratory effort with no use of accessory muscles. Abdomen: Bowel tones present. Soft, nontender, nondistended. No hepatosplenomegaly or masses appreciated. Extremities: No clubbing, cyanosis, edema, or lymphadenopathy appreciated. Skin: Normal temperature, turgor, and texture; no rash, ulcers, or subcutaneous nodules appreciated. Neurological: Cranial nerves grossly intact. Normal muscle strength, tone, and bulk. Reflexes, coordination, and sensory function within normal limits. No known gait impairment. Psychiatric: Normal mood and affect. Alert and oriented to person, place, and time. Lab and Diagnostics Labs CBC: WBC 3.2 Hemoglobin 7.3 Hematocrit 22.2 MCV 98.2 RDW 18.0 Platelet count 287 BMP: Sodium 132 Potassium 6.6 Chloride 97 Bicarbonate 27 BUN 70 Creatinine 2.75 Glucose 106 Result Diagram: 10/23/16 1334 12-lead ECG Normal sinus rhythm, borderline peaked T waves, normal axis Assessment & Plan Ren Jung is a 56-year-old man with stage IV hypopharynx squamous cell carcinoma complicated by dysphagia and past medical history significant for COPD , cluster headache, currently smoking who has presented directly from the oncology clinic due to hyperkalemia. Stage IV hypopharynx squamous cell carcinoma complicated by dysphasia now requiring tube feedings -Patient has completed treatment on October 14, 2016 -Patient to proceed with PEG tube placement. Gastrology services been consulted for this and agreed to see the patient. -Nothing by mouth for impeding PEG tube placement -Continue outpatient pain regiment Hyperkalemia likely secondary to replacement and worsening renal injury -Patient's potassium as are the better on repeat check even before Kayexalate was given -Calcium gluconate was also given due to concern for T waves -Recheck potassium this evening Normocytic anemia secondary to chemotherapy -Patient's hemoglobin has mildly declined since his last check -ED has ordered 2 units of PRBCs to be given. -We will recheck CBC in the morning Cisplatin-induced acute renal injury -Continue to monitor, encourage hydration Cisplatin-induced hearing loss COPD -Continue home inhalers CODE STATUS: FULL CODE Patient is admitted under inpatient status with expected length of stay of greater than 2 midnight due to severity of presenting symptoms, risk of adverse events and complexity of treatment plan VTE Prophylaxis: Sub-Q Heparin (Unfractionated) VTE Mechanical Devices: Intermittant Pneumatic CD Resuscitation Status: CPR: Attempt Resuscitation Time spent 60 minutes Attending Statement I interviewed and examined the patient at time of admission. Potassium of improved on admission and no signs of EKG toxicity. I agree with the assessment and plan as stated above. Cira Jarrell DO October 23, 2016 16:23 Roberto Aiken MD October 24, 2016 07:08
[2016-10-23] MEDS ORDERED: ALPRAZolam 0.5 mg Tablet PO PRN (17:20)
[2016-10-23] MEDS ORDERED: LORazepam 0.5 mg Tablet PO PRN (17:20)
[2016-10-23] MEDS ORDERED: oxyCODONE 1 mg/mL 5 mL Liquid PO PRN (17:20)
--- NOTE | 2016-10-23 17:23 | PCM.CHPMED ---
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 Jurado's office due to hyperkalemia and FRANTZ second to chemotherapy. Patient was recently here on October 09 for kidney injury, severe dysphasia including liquids, and significant dehydration. At that time the patient had a Dobbhoff placed and is still in place on presentation today. The patient's been taking in approximately 500 mL through his tube daily with 8 different tube feedings. This dysphasia was attributed to ongoing head and neck radiation the patient was receiving. He was placed on Protonix and assessed for a PEG tube placement. Patient declined PEG tube at that time. Today the patient states that he wishes to have a PEG tube placed as he now anticipates this dysphasia to continue for at least the next few months. At home the patient has gained 5-6 pounds in the last 2 weeks and states that he is now able to drink thin liquids through a straw without much trouble swallowing. Patient denies fever, chills, vomiting, diarrhea, constipation, abdominal pain. Patient does have chronic nausea thought to be related to his chemotherapy although it has yet to remit completely. This is controlled with Zofran. Overall, the patient denies any change from baseline. GI was consulted for evaluation and placement of the PEG tube. Review of Systems: See history of present illness PMH Past Medical History Head and neck cancer status post chemotherapy and radiation followed by Dr. Jurado COPD Cluster headaches Hx Any Other Health Problems?: YesHx Diabetes: No Surgical History Inguinal hernia repair Chest tube in 1992 Elbow surgery 1995 Home Medications Beclomethasone Dipropionate (Qvar) 8.7 Gm Aer.w.adap 2 PUFF INHALATION BID ( Reported) Bupropion ER (Wellbutrin SR) 150 Mg Tablet.er 150 MG PO BID (Reported) Magnesium Oxide (Magox 400) 400 Mg Tablet 400 MG PO BID Nicotine 7 mg/24 hr Patch (Nicotine 7 mg/24 hr Patch) 1 Each Patch.td24 1 PATCH TRANSDERM DAILY (Reported) Potassium Chloride (Potassium Chloride) 20 Meq/15 Ml Liquid 20 MEQ PO DAILY Silver Sulfadiazine (Ssd 25GM Pp) 25 Gm Cr 1 APPLIC TOPICAL TID (Reported) Albuterol Sulfate (Ventolin HFA Inhaler) 200 Puff/18 Gm Inhaler 2 PUFF INH Q4 PRN PRN For Wheezing (Reported) Alprazolam (Alprazolam) 0.5 Mg Tablet 0.5 MG PO TID PRN PRN For Anxiety ( Reported) Benzonatate (Benzonatate) 200 Mg Capsule 200 MG PO TID PRN PRN For Cough ( Reported) Cyproheptadine HCl (Cyproheptadine HCl) 4 Mg Tablet 4 MG PO TID PRN PRN For Eye Irritation (Reported) Hydrocodone-Acetaminophen 5-325 mg (Hydrocodone-Acetaminophen 5-325 mg) 1 Each Tablet 1-2 TABLET PO q4-6 hours PRN PRN For Pain (Reported) Lorazepam (Ativan) 0.5 Mg Tablet 0.5 MG PO TID PRN PRN For Nausea (Reported) Ondansetron ODT (Ondansetron ODT) 4 Mg Tab.rapdis 8 MG PO Q4H PRN PRN For Nausea /Vomiting Sumatriptan Succinate (Sumatriptan Succinate) 6 Mg/0.5 Ml Vial 6 MG SQ BID PRN PRN migraine (Reported) oxyCODONE (oxyCODONE) 5 Mg/5 Ml Solution 5 MG PO Q4H PRN PRN For Severe Pain Allergies: Coded Allergies: No Known Allergies (Unverified , 10/08/16) Family History Family History No history of colon or gastric cancer Social History Hx Alcohol Use: NoHx Substance Use: No (marijuana)Hx Tobacco Use: Yes Smoking Status: Current Every Day Smoker Exam Vital Signs Vital Sign - Last Date Time Temp Pulse Resp B/P Pulse Ox O2 Delivery O2 Flow Rate FiO2 10/23/16 16:33 70 10/23/16 16:02 36.6 16 120/63 100 Room Air General: Alert, Oriented X3, Cooperative Head: Hair (thin) Eyes: EOMI, Scleral Anicteric Mouth: Mucous Membr Moist/Morven Chest & Lungs: Chest Wall Normal, Clear to auscultation & percussion Cardiovascular: Exam Unremarkable, Regular Rate/Rhythm Abdomen: Non-tender, Non-distended, Normoactive bowel tones Extremities: No cyanosis/clubbing/edma bilat Skin: Other (darker skin around the head and neck consistent with radiation) Neurological: Grossly Neurologically Intact Lab and Diagnostics Result Diagram: 10/23/16 4425 Assessment & Plan Assessment Assessment 56-year-old male smoker with COPD and 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 Patient still has NG tube from previous stay 2 weeks ago. He is taking up to 500 mL a day in 8 separate tube feedings. He is requesting that he have a PEG tube placed due to the slow correction of his dysphagia. Overall the patient has made some improvements in regards to his dysphagia, now being able to drink water through a straw. On his last admission he was unable to do this consistently. Patient has put on 5-10 kg since his last stay as well. GI was consulted for PEG tube placement. Plan - Nothing by mouth after midnight - PEG tube placement EGD MAC on 10/24. unknown time - Placed order for Cefazolin for prophylaxis and post procedure; (1g 1 hr before ; 1g Q6 x 3 doses post procedure) - Thank you for allowing us to participate in the care of this patient Problems: VTE Prophylaxis: Sub-Q Heparin (Unfractionated) VTE Mechanical Devices: Intermittant Pneumatic CD Resuscitation Status: CPR: Attempt Resuscitation Attending Statement agree with assessment and plan above Jeferson Reynoso DO October 23, 2016 17:23 Juventino Crawford MD October 24, 2016 08:00
[2016-10-23] MEDS: 0.9% Sodium Chloride 250 ML IV SCH (19:28)
[2016-10-23] MEDS ORDERED: Sodium Chloride LOK Flush 10 mL Syringe IVFLUSH PRN ×2 (19:30)
[2016-10-23] MEDS ORDERED: HepLOK Flush 100 unit/mL 5 mL Inj IVFLUSH PRN (19:30)
[2016-10-23] MEDS ORDERED: Albuterol 2.5 mg/3 mL Inhalation Solution NEB PRN (20:00)
[2016-10-23] MEDS ORDERED: HYDROcodone-APAP 5-325 mg Tablet PO PRN (20:10)
[2016-10-23] MEDS: buPROPion SR 150 mg ER12 Tablet PO SCH (20:30)
[2016-10-23 21:01] VITALS: BP 142/62; PULSE 87; RESP 20; O2SAT 96
[2016-10-23] MEDS: Ondansetron 2 mg/mL 2 mL Inj IVPUSH PRN (22:31)
[2016-10-23] MEDS: Fluticasone 250 mCg Inhaler INHALATION SCH (22:36)
[2016-10-23] MEDS: oxyCODONE 1 mg/mL 5 mL Liquid PO PRN (22:39)
[2016-10-24] VITALS (15 sets, daily range): BP systolic 113–159; BP diastolic 63–81; PULSE 72–81; RESP 16–20; O2SAT 94–100
[2016-10-24] MEDS: fentaNYL-PF 50 mCg/mL 2 mL Inj IV PRN ×4 (02:18→19:59)
[2016-10-24 05:06] LABS: BASOPHILS % (AUTO) 0.5 % (0-3); EOSINOPHILS % (AUTO) 1.5 % (0-5); Mean Corpuscular Hemoglobin 32.1 pg (27.0-35.0); NEUTROPHILS % (AUTO) 53.2 % (40-74); Platelet Count 278 bil/L (150-400)
[2016-10-24] MEDS: buPROPion SR 150 mg ER12 Tablet PO SCH ×2 (08:30→19:47)
[2016-10-24] MEDS: 0.9% Sodium Chloride 1,000 ML IV SCH ×2 (09:08→15:46)
[2016-10-24] MEDS: Fluticasone 250 mCg Inhaler INHALATION SCH ×2 (09:32→20:03)
[2016-10-24] MEDS ORDERED: CeFAZolin Inj 2 GM in IV Premix 1 EACH IV ONE (10:45)
[2016-10-24] MEDS: Ondansetron 2 mg/mL 2 mL Inj IVPUSH PRN ×3 (10:52→19:55)
--- NOTE | 2016-10-24 11:46 | PCM.PNMED ---
Subjective Date of Service October 24, 2016 Subjective Ren Jung is a 56-year-old man with stage IV hypopharynx squamous cell carcinoma complicated by dysphagia and past medical history significant for COPD , cluster headache, currently smoking who has presented directly from the oncology clinic due to hyperkalemia. Hospital day #2 Overnight: No acute events Today: The patient is upset that he has been NPO since midnight for a procedure at 4 PM. He notes worsening pain in his throat as he is not able to swallow his PO pain medications. He denies any other complaints. The patient is continuing chronic nausea. The remainder of ROS is negative except as noted above. Exam Vital Signs Vital Sign - Last Date Time Temp Pulse Resp B/P Pulse Ox O2 Delivery O2 Flow Rate FiO2 10/24/16 08:22 36.7 75 20 130/65 96 Room Air Intake and Output 10/23/16 10/23/16 10/24/16 Cumulative From/Thru 15:00 23:00 07:00 10/23/16 13:07 - 10/24/16 06:59 Intake Total 165 ml 0 ml 165 ml Output Total 200 ml 500 ml 700 ml Balance -35 ml -500 ml -535 ml Intake Oral 120 ml 0 ml 120 ml IV Total 45 ml 45 ml Output Urine Total 200 ml 500 ml 700 ml # Voids 3 3 Exam General: No acute distress, thin, frail looking man in hospital bed. HEENT: Normocephalic, atraumatic. External ears without defect. Pupils equal, round, and reactive to light and accommodation. Anicteric sclerae, moist conjunctivae, and no lid lag. Oropharynx free of erythema and cobble stoning with moist mucosa. NG tube in place. Alopecia. Hard of hearing. Neck: Supple with full range of motion. No jugular venous distension. Increased pigmentation noted around his throat which the patient says started after his radiation treatment. No lymphadenopathy or thyromegaly. Cardiovascular: Regular rate and rhythm with no murmurs, rubs, or gallops appreciated Pulmonary: Clear to auscultation bilaterally with no crackles, wheezes, or rhonchi. Normal respiratory effort with no use of accessory muscles. Abdomen: Bowel tones present. Soft, nontender, nondistended. No hepatosplenomegaly or masses appreciated. Extremities: No clubbing, cyanosis, edema, or lymphadenopathy appreciated. Skin: Normal temperature, turgor, and texture; no rash, ulcers, or subcutaneous nodules appreciated. Neurological: Cranial nerves grossly intact. Normal muscle strength, tone, and bulk. Reflexes, coordination, and sensory function within normal limits. No known gait impairment. Psychiatric: Normal mood and affect. Alert and oriented to person, place, and time. IVs and Medications Medications Reviewed: Medications were reviewed in detail Lab and Diagnostics Result Diagram: 10/24/1644310/24/16443 12-lead ECG Normal sinus rhythm, borderline peaked T waves, normal axis Assessment & Plan Ren Jung is a 56-year-old man with stage IV hypopharynx squamous cell carcinoma complicated by dysphagia and past medical history significant for COPD , cluster headache, currently smoking who has presented directly from the oncology clinic due to hyperkalemia. Hospital day #2 Stage IV hypopharynx squamous cell carcinoma complicated by dysphasia now requiring tube feedings -Patient has completed treatment on October 14, 2016 -Patient to proceed with PEG tube placement. Gastrology services been consulted for this and agreed to see the patient. Plan to have this procedure done today. -Nothing by mouth for impeding PEG tube placement -Continue outpatient pain regiment when change diet back -IV fentanyl for pain Hyperkalemia likely secondary to replacement and worsening renal injury, improving -Calcium gluconate was also given due to concern for T waves -Continue to treat medically Normocytic anemia secondary to chemotherapy -1 unit of PRBCs to be given. Cisplatin-induced acute renal injury -Continue to monitor, encourage hydration when not NPO Cisplatin-induced hearing loss COPD -Continue home inhalers CODE STATUS: FULL CODE Disposition: Anticipate patient will be in the hospital for 1-2 more days as he is evaluated and treated for the above conditions. VTE Prophylaxis: Sub-Q Heparin (Unfractionated) VTE Mechanical Devices: Intermittant Pneumatic CD Resuscitation Status: CPR: Attempt Resuscitation Attending Statement I interviewed and examined the patient on rounds today. I agree with the assessment and plan as stated above. Cira Jarrell DO October 24, 2016 11:37 Roberto Aiken MD October 25, 2016 18:08
[2016-10-24] MEDS ORDERED: CeFAZolin Inj 1 GM in IV Premix 1 EACH IV SCH (12:00)
--- NOTE | 2016-10-24 13:17 | PROG NOTE ---
[address] [address] PROGRESS NOTE PATIENT: JAYLAN SNOW : 1960 MR#: [id number] ADMIT: 10/23/2016 JOB ID: [id number] DATE: 10/24/2016 DIAGNOSES: 1. Locally advanced left hypopharynx squamous cell carcinoma, status post chemoradiotherapy. 2. Cisplatin-induced acute kidney injury, associated with severe hyperkalemia. 3. Poor oral intake. SUBJECTIVE: Today, he feels slightly stronger. He has no new complaints. OBJECTIVE: Resting comfortably in bed. Appears tired. Blood pressure 134/63, heart rate 73, temperature 36.6. O2 saturation 96% on room air. LABORATORY DATA: Hemoglobin has further dropped to 6.0, but he is receiving 1 unit packed red blood cell transfusion currently. Potassium has improved to 5.3. Creatinine unchanged at 2.65. PLAN: 1. The patient is scheduled for a PEG tube placement later this afternoon and will start tube feeds through that tomorrow. Upon discharge, he will need to be released with proper instructions and feeding and care supply. 2. Cisplatin-induced renal injury, unchanged. This will be monitored closely, but at best a partial recovery can be expected. 3. Severe hyperkalemia has nearly resolved. Please provide him with low-potassium diet instructions upon discharge. 4. Hypopharynx locally advanced squamous cell carcinoma. He has completed treatment as of October 14. In mid December, will obtain a post treatment PET-CT.
[2016-10-24] MEDS ORDERED: Ketamine 10 mg/mL 20 mL Inj ONE (13:30)
[2016-10-24] MEDS ORDERED: Propofol 10,000 mCg/mL 20 mL Inj ONE (13:30)
[2016-10-24] MEDS ORDERED: fentaNYL-PF 50 mCg/mL 2 mL Inj ONE (13:30)
--- NOTE | 2016-10-24 13:54 | PCM.HPANE ---
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), Denies:: Anesthesia Reactions Diabetes History Hx Diabetes?: No MRSA MRSA: No Medications Hypertension Medication: No Home Meds Incl Beta Helene: No Active Scripts Magnesium Oxide (Magox 400)400 Mg [id number] Mg PO BID 14 Days Prov:Colton Brice MD 10/12/16 Potassium Chloride 20 Meq/15 Ml Dywdvu48 Meq PO DAILY 7 Days Prov:Colton Brice MD 10/12/16 Ondansetron ODT 4 Mg Tab.rapdis8 Mg PO Q4H PRN For Nausea/Vomiting #30 Prov:Colton Brice MD 10/12/16 oxyCODONE 5 Mg/5 Ml Solution5 Mg PO Q4H PRN For Severe Pain 14 Days Prov:Colton Brice MD 10/12/16 Reported Medications Beclomethasone Dipropionate (Qvar)8.7 Gm Aer.w.adap1 Puff INHALATION BID #9 10/23/16 Bupropion ER (Wellbutrin SR)150 Mg Tablet.er150 Mg PO BID Ref 0 10/08/16 Benzonatate 200 Mg [id number] Mg PO TID PRN For Cough #50 10/08/16 Nicotine 7 mg/24 hr Patch 1 Each Patch.td241 Patch TRANSDERM DAILY #14 10/08/16 Lorazepam (Ativan)0.5 Mg Tablet0.5 Mg PO TID PRN For Nausea #90 10/08/16 Silver Sulfadiazine (Ssd 25GM Pp)25 Gm Cr1 Applic TOPICAL TID #400 10/08/16 Beclomethasone Dipropionate (Qvar)8.7 Gm Aer.w.adap2 Puff INHALATION BID #8.7 GM 05/24/16 Albuterol Sulfate (Ventolin HFA Inhaler)200 Puff/18 Gm Inhaler2 Puff INH Q4 PRN For Wheezing #1 INHALER Ref 0 05/24/16 Hydrocodone-Acetaminophen 5-325 mg 1 Each Tablet1-2 Tablet PO q4-6 hours PRN For Pain Ref 0 05/24/16 Alprazolam 0.5 Mg Tablet0.5 Mg PO TID PRN For Anxiety Ref 0 05/24/16 Cyproheptadine HCl 4 Mg Tablet4 Mg PO TID PRN For Eye Irritation 05/24/16 Sumatriptan Succinate 6 Mg/0.5 Ml Vial6 Mg SQ BID PRN migraine 05/24/16 History History of ENT Problems?: Yes HEENT History: Positive for:: Abnormal Airway (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, oropharyngeal mass is smaller on recent CT scan) Dysphagia Denies:: Cataracts Glaucoma Sinus Problem Denture Type: Full- Upper Hx of Heart Problems?: No Cardiovascular History: Denies:: Cardiac Surgery Chest Pain Congestive Heart Failure Edema Heart Murmur Hypertension Irregular Heartbeat Pacemaker Thrombophlebitis Hx of Respiratory Problem?: Yes Respiratory History: Positive for:: Asthma COPD Chest Surgery Cough (CHRONIC) Dyspnea Pneumonia Denies:: Emphysema Hemoptysis Tuberculosis Hx Neurologic Problems?: Yes Neurological History: Positive for:: Dizziness Headaches (cluster headache) Denies:: Alzheimer's Disease CVA Dementia Parkinson's Disease Seizures Hx of GI Problems?: No Hx of Problems?: Yes Genitourinary History: Positive for:: Urinary Tract Infection Denies:: HX of Hemodialysis Kidney Stones HX of Peritoneal Dialysis: No Male Hx: Denies:: Prostate Problems Scrotal Mass Testicular Surgery Hx Musculoskeletal Problems?: Yes Musculoskeletal History: Positive for:: Back Injury ("from being a bird") Denies:: Joint Replacement Musculoskeletal Trauma Hx of Psycho/Social Problems?: Yes Psycho Social History: Positive for:: Anxiety Hx Depression Denies:: Bipolar Disorder Suicide Attempt Hx Surgeries?: Yes (hernia repair x2, elbow surgery) Hx Any Other Health Problems?: Yes Other History: Positive for:: Cancer (throat CA current) Hospitalization (hernia, bladder) Denies:: Thyroid Disease History Blood Transfusions: Positive for:: Accept Blood Products? Denies:: Blood Transfuse Reaction Blood Transfusions Hx Diabetes: No Hx Alcohol Use: NoHx Substance Use: No (marijuana) Smoking Status: Current Every Day Smoker Have You Smoked inLast 12 mo: Yes Stop/Bang Treated for Sleep Apnea?: No Do You Have a CPAP Machine?: No S-Snoring: Do You Snore Loudly: Yes T-Tired: feel tired, fatigued: Yes O-Obsered: Observed not breath: No P-Blood Pressure: treated: Yes B- Body Mass Index > 35 kg/m2: No A- Age over 50: Yes N- Neck Large Circumference: No G- Gender Male: Yes RAMONA Total Score: 4 RAMONA Category 2: Yes Risk Assessment Category Category 1A: Patient has history of documented sleep apnea, and HAS NOT received any narcotic, sedative or anesthesia administration during this stay. Category 1B: Patient has history of documented sleep apnea, and HAS received any narcotic , sedative or anesthesia administration during this stay Category 2: Patient has SUSPECTED Obstructive Sleep Apnea, and HAS received any narcotic , sedative or anesthesia administration during this stay. Category 3: Patient has SUSPECTED Obstructive Sleep Apnea and HAS NOT received narcotic, sedative or anesthesia administration during this stay. Category 4: Outpatient in Procedural Areas with known sleep apnea or who screen positive for High Risk via the STOP/BANG questionnaire. Exam Exam Vital Signs Vital Signs Date Time Temp Pulse Resp B/P Pulse Ox O2 Delivery O2 Flow Rate FiO2 10/24/16 13:41 36.8 73 16 124/67 10/24/16 12:30 36.6 73 17 134/63 96 Room Air 10/24/16 12:29 36.6 72 17 134/63 10/24/16 12:05 36.8 76 17 132/68 10/24/16 11:49 36.8 81 16 119/69 10/24/16 08:22 36.7 75 20 130/65 96 Room Air General Appearance: Alert, Oriented X3, Cooperative HEENT/AIRWAY: MP 2 Lungs: Clear to Auscultation Heart: Regular Rate/Rhythm Meds/Labs/Diagnostics Admission Meds Current Medications Sodium Chloride (Normal Saline) 1,000 ml @ 80 mls/hr [id number] IV Last administered on 10/24/16 09:08; Start 10/23/16 at 14:46 Silver Sulfadiazine (Silvadene Cream) 1 applic TID TOPICAL Last administered on 10/24/16 09:33; Start 5/24/17 at 20:30 Fluticasone Propionate (Flovent 250 mCg Diskus) 1 puff BID INHALATION Last administered on 10/24/16 09:32; Start 10/23/16 at 20:30 Sodium Polystyrene Sulfonate (Kayexalate Susp) 15 gm ONCE ONCE PO Last administered on 10/23/16 22:36; Start 10/23/16 at 21:30; Stop 10/23/16 at 21:32 ; Status DC Morphine Sulfate (Morphine 4 mg/ mL Syringe) 4 mg ONCE ONCE IVPUSH Last administered on 10/24/16 09:34; Start 10/24/16 at 09:20; Stop 10/24/16 at 09:24 ; Status DC Labs Test 10/23/16 15:30 10/24/16 04:44 Hold Urine Received (Received) White Blood Count 2.0th/mm3 (3.8-10.1) Red Blood Count 1.87mil/mm3 (4.40-5.80) Hemoglobin 6.0g/dL (13.8-17.2) Hematocrit 17.4% (41.0-50.0) Mean Corpuscular Volume 93.0fL (81-100) Mean Corpuscular Hemoglobin 32.1pg (27.0-35.0) Mean Corpuscular Hemoglobin Concent 34.5% (32.0-37.0) Red Cell Distribution Width 17.4% (12.3-15.4) Platelet Count 278bil/L (150-400) Neutrophils (%) (Auto) 53.2% (40-74) Lymphocytes (%) (Auto) 33.8% (14-46) Monocytes (%) (Auto) 10.0% (4-12) Eosinophils (%) (Auto) 1.5% (0-5) Basophils (%) (Auto) 0.5% (0-3) Sodium Level 137mEq/L (134-144) Potassium Level 5.3mEq/L (3.5-5.2) Chloride Level 99mEq/L (97-108) Carbon Dioxide Level 25mmol/L (18-29) Blood Urea Nitrogen 61mg/dL (6-24) Creatinine 2.65mg/dL (0.76-1.27) Estimat Glomerular Filtration Rate 27mL/min (>59) Glucose Level 94mg/dL (60-99) Calcium Level 9.1mg/dL (8.5-10.1) Plan Impression Patient chart reviewed, patient interviewed and anesthestic plan with risks, benefits, and alternatives discussed, and informed consent obtained. ASA Physical Status: ASA3 Severe Disease Anesthetic Plan: MAC Bene/Risks/Altern/Consents: Yes HP Complete Prior to Induction: Yes Sae Benson MD October 24, 2016 13:54
--- NOTE | 2016-10-24 14:48 | PCM.ANEP1 ---
Post Anesthesia PACU Phase 1 Assessment Date of Service: October 24, 2016 Vital Signs Vital Signs Date Time Temp Pulse Resp B/P Pulse Ox O2 Delivery O2 Flow Rate FiO2 10/24/16 14:43 72 16 157/81 100 Room Air 10/24/16 14:36 73 16 159/78 100 Room Air 10/24/16 13:41 36.8 73 16 124/67 10/24/16 12:30 36.6 73 17 134/63 96 Room Air 10/24/16 12:29 36.6 72 17 134/63 10/24/16 12:05 36.8 76 17 132/68 10/24/16 11:49 36.8 81 16 119/69 10/24/16 08:22 36.7 75 20 130/65 96 Room Air Level of Alertness: Awake, talking Pain: Yes Pain Scale Score: 6 Nausea or Vomiting: No CV Function & Hydration Stable: Yes Airway Device: Oxygen Delivery: Nasal Cannula Lungs: Clear to Auscultation PACU Phase 2 Assessment Patient Instructions Provided: Yes Sae Benson MD October 24, 2016 14:48
[2016-10-24] MEDS ORDERED: CeFAZolin Inj 2 GM in IV Premix 1 EACH IV SCH (15:30)
--- NOTE | 2016-10-24 15:35 | ENDO ---
[address] [address] ENDOSCOPY PROCEDURE PATIENT: JAYLAN SNOW : 1960 MR#: [id number] ADMIT: 10/23/2016 JOB ID: [id number] DATE OF SERVICE: 10/24/2016 PROCEDURE: Esophagogastroduodenoscopy with percutaneous gastrostomy tube placement. PREOPERATIVE DIAGNOSIS(ES): History of hypopharynx carcinoma stage IV, dysphagia. POSTOPERATIVE DIAGNOSIS(ES): Successful percutaneous endoscopic gastrostomy tube placement endoscopically. ANESTHESIA: Monitored anesthesia care. COMPLICATIONS: None. BLOOD LOSS: Minimal. DESCRIPTION OF PROCEDURE: After risks and benefits had been explained to patient, informed consent was obtained. After anesthesia administered, upper endoscope was inserted into the mouth, esophagus, stomach, second portion of duodenum. Mucosa carefully examined. After procedure was done, the scope withdrawn and procedure terminated. FINDINGS: Upon entering the esophagus, esophagus was normal without masses, ulcers, or lesions. Z-line located 45 cm from incisors. Upon entry in the stomach, the stomach was also normal without masses, ulcers, or lesions. Retroflexion was normal. Duodenal bulb, first and second portion were normal. Afterwards the scope was then pulled back into the stomach, in which transillumination of the endoscope was then deployed to find a nice spot within the skin. The skin was then marked at that point in time. Under sterile conditions, the skin was then marked and sterilized with Betadine x3. A drape was then put over at this region. Afterwards lidocaine was then injected at the spot and then the needle was inserted down into the stomach with xylocaine injection. Afterwards, another needle was inserted through the skin through the marked spot during transillumination with success into the stomach. A push-through in which a wire was then inserted through the needle and into the stomach, and a snare was then deployed through the scope which grabbed the wire and pulled the wire out of the mouth. Afterwards, a PEG tube then was placed through a push-through method with success. Afterwards the scope was then advanced back down the esophagus into the stomach, and the PEG bumper was then seen within the stomach with good success. COMPLICATIONS: None. BLOOD LOSS: Minimal. IMPRESSION: Normal upper endoscopy, status post successful percutaneous endoscopic gastrostomy tube placement endoscopically. RECOMMENDATIONS: 1. Cefazolin 1 g IV q.6 h. x3 doses post percutaneous endoscopic gastrostomy. 2. Water flushes with meds okay for next 24 hours. After 24 hours, then okay to start tube feeds through the percutaneous endoscopic gastrostomy tube.
[2016-10-24] MEDS: oxyCODONE 1 mg/mL 5 mL Liquid PO PRN ×2 (16:29→22:17)
[2016-10-24] MEDS: 0.9% Sodium Chloride 250 ML IV SCH (18:30)
[2016-10-24] MEDS: CeFAZolin Inj 1 GM in IV Premix 1 EACH IV SCH (20:05)
[2016-10-25 00:56] VITALS: BP 126/65; PULSE 73; RESP 18; O2SAT 93
[2016-10-25] MEDS: CeFAZolin Inj 1 GM in IV Premix 1 EACH IV SCH ×2 (01:57→09:16)
[2016-10-25] MEDS: 0.9% Sodium Chloride 1,000 ML IV SCH (02:33)
[2016-10-25 04:09] VITALS: BP 149/68; PULSE 72; RESP 18; O2SAT 97
[2016-10-25] MEDS: Ondansetron 2 mg/mL 2 mL Inj IVPUSH PRN ×2 (04:26→09:37)
[2016-10-25] MEDS: fentaNYL-PF 50 mCg/mL 2 mL Inj IV PRN ×2 (04:31→09:37)
[2016-10-25 05:31] VITALS: PULSE 69
[2016-10-25 08:00] VITALS: BP 132/77; PULSE 69; PULSE 74; RESP 18; O2SAT 94
[2016-10-25] MEDS: buPROPion SR 150 mg ER12 Tablet PO SCH (08:30)
[2016-10-25] MEDS: Fluticasone 250 mCg Inhaler INHALATION SCH (09:16)
--- NOTE | 2016-10-25 10:52 | PCM.PNMED ---
Subjective Date of Service October 25, 2016 Subjective GI progress note Yesterday patient underwent a successful PEG tube placement. Overnight he has no complaints. Should be able to start using the PEG tube for more than water and medications this afternoon around 1500. H&H is stable and greatly improved. Patient denies review of systems wants to go home. Exam Vital Signs Vital Sign - Last Date Time Temp Pulse Resp B/P Pulse Ox O2 Delivery O2 Flow Rate FiO2 10/25/16 08:00 36.9 74 18 132/77 94 Room Air Intake and Output 10/24/16 10/24/16 10/25/16 Cumulative From/Thru 15:00 23:00 07:00 10/23/16 13:07 - 10/25/16 06:12 Intake Total 1821 ml 737 ml 906 ml 3629 ml Output Total 650 ml 1045 ml 2395 ml Balance 1821 ml 87 ml -139 ml 1234 ml Intake Oral 0 ml 50 ml 170 ml IV Total 1521 ml 737 ml 856 ml 3159 ml Packed Cells 300 ml 300 ml Output Urine Total 650 ml 1045 ml 2395 ml # Voids 4 7 Exam General: Alert, Oriented X3, Cooperative Chest & Lungs: Chest Wall Normal, Clear to auscultation & percussion Cardiovascular: Exam Unremarkable, Regular Rate/Rhythm Abdomen: Non-tender, Non-distended, Normoactive bowel tones; no erythema or pain around PEG tube Extremities: No cyanosis/clubbing/edma bilat Neurological: Grossly Neurologically Intact IVs and Medications Medications Reviewed: Medications were reviewed in detail Lab and Diagnostics Result Diagram: 10/24/16 1646 10/25/16 0430 12-lead ECG Normal sinus rhythm, borderline peaked T waves, normal axis Assessment & Plan Assessment 56-year-old male smoker with COPD and 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 Patient still has NG tube from previous stay 2 weeks ago. He is taking up to 500 mL a day in 8 separate tube feedings. He is requesting that he have a PEG tube placed due to the slow correction of his dysphagia. Overall the patient has made some improvements in regards to his dysphagia, now being able to drink water through a straw. On his last admission he was unable to do this consistently. Patient has put on 5-10 kg since his last stay as well. Patient underwent successful upper endoscopy with PEG tube placement. This morning she has no complaints and is anemia is resolved with transfusion. Patient should be able to use the PEG tube around 1500 this afternoon. He can be discharged one ready with instructions on how to use a PEG tube. RECOMMENDATIONS: 1. Cefazolin 1 g IV q.6 h. x3 doses post percutaneous endoscopic gastrostomy. 2. Water questions or medications only 3 PEG tube until 1500 afternoon. ok to start tube feeds per hospitalist team after that 3. We will go ahead and sign off at this point. If any issues arise, feel free to contact us. VTE Prophylaxis: Sub-Q Heparin (Unfractionated) VTE Mechanical Devices: Intermittant Pneumatic CD Resuscitation Status: CPR: Attempt Resuscitation Jeferson Reynoso DO October 25, 2016 10:52 Juventino Crawford MD October 25, 2016 11:26
--- NOTE | 2016-10-25 11:36 | PCM.DIMED ---
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 Diet Discharge Diet: Other (tube feeds per central office equipment engineer) Activity Discharge Activity: Limited until seen by PCP Call your provider Call your provider for: Fever or Chills, Bleeding Patient Instructions Patient Instructions Please start your tube feedings at 3 PM today. Please start slowly. Use the rate that you were able to tolerate before, which is around 25 cc per hour. Please call the [facility] or the cancer care center if you find you are having problems with the feeds. Please call your doctor if you are noting any bleeding or significant discharge from the PEG tube site. Please call your doctor if you are having any fevers or chills. Follow-up Provider: Dawson Forman MD Follow-up with PCP in: 1 week Provider: Ana M Jurado MD Follow-up in: 2 weeks Additional Information Patient is anticipated to need a PEG tube for at least 3 months and require tube feeds for that time. Roberto Aiken MD 10/25/16 1810: Discharge Instructions Attending's Statement I interviewed and examined the patient on rounds today. I agree with the assessment and plan as stated above. Cira Jarrell DO October 25, 2016 11:36 Roberto Aiken MD October 25, 2016 18:10
[2016-10-25 12:00] VITALS: BP 135/71; PULSE 70; RESP 18; O2SAT 94
[2016-10-25] MEDS ORDERED: Fluticasone 250 mCg Inhaler INHALATION SCH (13:30)
--- NOTE | 2016-10-29 16:43 | PCM.DC.MED ---
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 now requiring tube feedings Hyperkalemia likely secondary to replacement and worsening renal injury, improving Normocytic anemia secondary to chemotherapy Cisplatin-induced acute renal injury Cisplatin-induced hearing loss COPD Consultations Oncology Gastroenterology Procedures ECG 12 Lead Normal sinus rhythm, borderline peaked T waves, normal axis Brief History Ren Jung is a 56-year-old man with stage IV hypopharynx squamous cell carcinoma complicated by dysphagia and past medical history significant for COPD , cluster headache, currently smoking who has presented directly from the oncology clinic due to hyperkalemia. The patient himself denies any changes in his baseline status. He states that if he was not referred by his oncologist he would have not felt the need to come to the hospital. The patient has been having a lot of problems with dysphasia for the last several weeks and has a Dobbhoff placed for tube feeds in anticipation of PEG tube placement. He has persistent nausea and some vomiting which is baseline for him. He denies any abdominal pain or cramps. He does actually no constipation. He denies any fever, chills, sick contacts. He completed his chemotherapy and radiation. At the oncologist office his potassium was noted to be 6.6. Upon repeat measurement his potassium is 35.8. He was given a one-time dose of Kayexalate in the ED. His EKG in the ED was concerning for peaked T waves so he was given calcium gluconate. He previously had episodes of low potassium so he is on daily supplements. Hospital Course Ren Jung is a 56-year-old man with stage IV hypopharynx squamous cell carcinoma complicated by dysphagia and past medical history significant for COPD , cluster headache, currently smoking who has presented directly from the oncology clinic due to hyperkalemia. 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 now requiring tube feedings -Patient has completed treatment on October 14, 2016 -PEG tube placement -Continued outpatient pain regiment -IV fentanyl for pain Hyperkalemia likely secondary to replacement and worsening renal injury, resolved -Calcium gluconate was given due to concern for T waves -Continued to treat medically Normocytic anemia secondary to chemotherapy -1 unit of PRBCs Cisplatin-induced acute renal injury -Continued to monitor, encouraged hydration Cisplatin-induced hearing loss COPD -Continued home inhalers Exam Vital Signs (Last) Date Time Temp Pulse Resp B/P Pulse Ox O2 Delivery O2 Flow Rate FiO2 10/25/16 12:00 37.0 70 18 135/71 94 Room Air Exam General: No acute distress, thin, frail looking man in hospital bed. HEENT: Normocephalic, atraumatic. External ears without defect. Pupils equal, round, and reactive to light and accommodation. Anicteric sclerae, moist conjunctivae, and no lid lag. Oropharynx free of erythema and cobble stoning with moist mucosa. NG tube in place. Alopecia. Hard of hearing. Neck: Supple with full range of motion. No jugular venous distension. Increased pigmentation noted around his throat which the patient says started after his radiation treatment. No lymphadenopathy or thyromegaly. Cardiovascular: Regular rate and rhythm with no murmurs, rubs, or gallops appreciated Pulmonary: Clear to auscultation bilaterally with no crackles, wheezes, or rhonchi. Normal respiratory effort with no use of accessory muscles. Abdomen: Bowel tones present. Soft, nontender, nondistended. No hepatosplenomegaly or masses appreciated. PEG tube in place without any bleeding with clean dry dressing. Extremities: No clubbing, cyanosis, edema, or lymphadenopathy appreciated. Skin: Normal temperature, turgor, and texture; no rash, ulcers, or subcutaneous nodules appreciated. Neurological: Cranial nerves grossly intact. Normal muscle strength, tone, and bulk. Reflexes, coordination, and sensory function within normal limits. No known gait impairment. Psychiatric: Normal mood and affect. Alert and oriented to person, place, and time. Test 10/23/16 15:30 10/24/16 04:44 10/24/16 16:46 10/25/16 04:30 Hold Urine Received (Received) White Blood Count 2.0th/mm3 (3.8-10.1) Red Blood Count 1.87mil/mm3 (4.40-5.80) Mean Corpuscular Volume 93.0fL (81-100) Mean Corpuscular Hemoglobin 32.1pg (27.0-35.0) Mean Corpuscular Hemoglobin Concent 34.5% (32.0-37.0) Red Cell Distribution Width 17.4% (12.3-15.4) Platelet Count 278bil/L (150-400) Neutrophils (%) (Auto) 53.2% (40-74) Lymphocytes (%) (Auto) 33.8% (14-46) Monocytes (%) (Auto) 10.0% (4-12) Eosinophils (%) (Auto) 1.5% (0-5) Basophils (%) (Auto) 0.5% (0-3) Hemoglobin 15.3g/dL (13.8-17.2) Hematocrit 43.5% (41.0-50.0) Sodium Level 140mEq/L (134-144) Potassium Level 4.8mEq/L (3.5-5.2) Chloride Level 99mEq/L (97-108) Carbon Dioxide Level 26mmol/L (18-29) Blood Urea Nitrogen 54mg/dL (6-24) Creatinine 2.73mg/dL (0.76-1.27) Estimat Glomerular Filtration Rate 26mL/min (>59) Glucose Level 88mg/dL (60-99) Calcium Level 9.1mg/dL (8.5-10.1) Discharge Medications Discharge Medications Beclomethasone Dipropionate (Qvar) 8.7 Gm Aer.w.adap 2 PUFF INHALATION BID ( Reported) Beclomethasone Dipropionate (Qvar) 8.7 Gm Aer.w.adap 1 PUFF INHALATION BID ( Reported) Bupropion ER (Wellbutrin SR) 150 Mg Tablet.er 150 MG PO BID (Reported) Nicotine 7 mg/24 hr Patch (Nicotine 7 mg/24 hr Patch) 1 Each Patch.td24 1 PATCH TRANSDERM DAILY (Reported) Silver Sulfadiazine (Ssd 25GM Pp) 25 Gm Cr 1 APPLIC TOPICAL TID (Reported) As needed Albuterol Sulfate (Ventolin HFA Inhaler) 200 Puff/18 Gm Inhaler 2 PUFF INH Q4 PRN PRN For Wheezing (Reported) Alprazolam (Alprazolam) 0.5 Mg Tablet 0.5 MG PO TID PRN PRN For Anxiety ( Reported) Benzonatate (Benzonatate) 200 Mg Capsule 200 MG PO TID PRN PRN For Cough ( Reported) Cyproheptadine HCl (Cyproheptadine HCl) 4 Mg Tablet 4 MG PO TID PRN PRN For Eye Irritation (Reported) Hydrocodone-Acetaminophen 5-325 mg (Hydrocodone-Acetaminophen 5-325 mg) 1 Each Tablet 1-2 TABLET PO q4-6 hours PRN PRN For Pain (Reported) Lorazepam (Ativan) 0.5 Mg Tablet 0.5 MG PO TID PRN PRN For Nausea (Reported) Ondansetron ODT (Ondansetron ODT) 4 Mg Tab.rapdis 8 MG PO Q4H PRN PRN For Nausea /Vomiting Prescribed by: CIERA DIEGO MD Sumatriptan Succinate (Sumatriptan Succinate) 6 Mg/0.5 Ml Vial 6 MG SQ BID PRN PRN migraine (Reported) oxyCODONE (oxyCODONE) 5 Mg/5 Ml Solution 5 MG PO Q4H PRN PRN For Severe Pain Prescribed by: CIERA DIEGO MD Additional med instructions Please STOP taking potassium and magnesium supplements. Followup Plan Discharge Diet: Other (tube feeds per shelver) Discharge Activity: Limited until seen by PCP Patient Instructions Please start your tube feedings at 3 PM today. Please start slowly. Use the rate that you were able to tolerate before, which is around 25 cc per hour. Please call the [facility] or the cancer care center if you find you are having problems with the feeds. Please call your doctor if you are noting any bleeding or significant discharge from the PEG tube site. Please call your doctor if you are having any fevers or chills. Follow-up Provider: Dawson Forman MD Follow-up with PCP in: 1 week Provider: Ana M Jurado MD Follow-up in: 2 weeks Cira Jarrell DO October 29, 2016 16:43
== END 2016-10-25 13:31 | disposition home or self-care (01) | DRG 951 ==
LOC: SED 12:53 → PCC 15:00
PROVIDERS: ADMIT Internal Medicine; ATTEND Internal Medicine
PROC: 30233N1 Transfusion of Nonautologous Red Blood Cells into Peripheral Vein, Percutaneous Approach (ICD-10-PCS; 2016-10-24)
PROC: 0DH68UZ Insertion of Feeding Device into Stomach, Via Natural or Artificial Opening Endoscopic (ICD-10-PCS; principal; 2016-10-24 13:45)
DX: C13.9 Malignant neoplasm of hypopharynx, unspecified (principal); N17.9 Acute kidney failure, unspecified; E87.5 Hyperkalemia; D64.81 Anemia due to antineoplastic chemotherapy; J44.9 Chronic obstructive pulmonary disease, unspecified; R13.19 Other dysphagia; N14.1 Nephropathy induced by other drugs, medicaments and biological substances; T45.1X5A Adverse effect of antineoplastic and immunosuppressive drugs, initial encounter; F17.210 Nicotine dependence, cigarettes, uncomplicated

== ENCOUNTER 2016-11-01 20:24 | Inpatient (IN) | payer OTHER ==
[~2016-11-01] VITALS: Ht 193 cm; Wt 79.7 kg
[~2016-11-01 20:24] MED LIST changes: +BECL8.7A5 INHALATION; -MAGN400T29 PO; -POTA20LI2 PO
[2016-11-01 20:28] VITALS: BP 155/84; PULSE 66; RESP 21; O2SAT 99
[2016-11-01 20:43] VITALS: BP 163/79; PULSE 66; RESP 21; O2SAT 99
--- NOTE | 2016-11-01 20:44 | ED.REPORT ---
HPI-NVD Date of Service Nov 01, 2016 ED Provider: To Ruiz MD Pt is a 56 y/o male w/ a hx of left throat tumor causing dysphagia s/p PEG tube insertion, COPD, presenting to the ED via EMS c/o nausea and vomiting onset 15: 00 yesterday. The patient began to experience nausea and vomiting after a tube feed and since then has not been able to keep anything down with tube feeds and has vomited 5-10 times today. His emesis is described as somewhat darker than normal but without coffee-ground appearance or mikael hematemesis. He does not check his residuals. Zofran has not relieved his symptoms. He c/o associated abdominal pain. He denies diarrhea, inability to pass gas, dizziness, lightheadedness, CP, SOB, fever, chills, other recent illnesses or injuries. His last BM was 1 or 2 days ago and he has no history of SBO but he does have a long history of constipation. His last admit was October 23- for hyperkalemia which was thought to be caused by replacement and worsening renal injury. An endoscopy was performed on October [address] Crawford who placed a PEG tube at the same time. There were no complications during the procedure. Nursing Notes Stated Complaint: VOMITING Chief Complaint: Male Abdominal Pain Nursing Notes Reviewed: Yes (Streem, [employer] not reconciled) Allergies: Coded Allergies: No Known Allergies (Unverified , 10/08/16) Scheduled Beclomethasone Dipropionate (Qvar) 8.7 Gm Aer.w.adap 2 PUFF INHALATION BID Beclomethasone Dipropionate (Qvar) 8.7 Gm Aer.w.adap 1 PUFF INHALATION BID Bupropion ER (Wellbutrin SR) 150 Mg Tablet.er 150 MG PO BID Nicotine 7 mg/24 hr Patch (Nicotine 7 mg/24 hr Patch) 1 Each Patch.td24 1 PATCH TRANSDERM DAILY Silver Sulfadiazine (Ssd 25GM Pp) 25 Gm Cr 1 APPLIC TOPICAL TID Scheduled PRN Albuterol Sulfate (Ventolin HFA Inhaler) 200 Puff/18 Gm Inhaler 2 PUFF INH Q4 PRN PRN For Wheezing Alprazolam (Alprazolam) 0.5 Mg Tablet 0.5 MG PO TID PRN PRN For Anxiety Benzonatate (Benzonatate) 200 Mg Capsule 200 MG PO TID PRN PRN For Cough Cyproheptadine HCl (Cyproheptadine HCl) 4 Mg Tablet 4 MG PO TID PRN PRN For Eye Irritation Hydrocodone-Acetaminophen 5-325 mg (Hydrocodone-Acetaminophen 5-325 mg) 1 Each Tablet 1-2 TABLET PO q4-6 hours PRN PRN For Pain Lorazepam (Ativan) 0.5 Mg Tablet 0.5 MG PO TID PRN PRN For Nausea Ondansetron ODT (Ondansetron ODT) 4 Mg Tab.rapdis 8 MG PO Q4H PRN PRN For Nausea /Vomiting Sumatriptan Succinate (Sumatriptan Succinate) 6 Mg/0.5 Ml Vial 6 MG SQ BID PRN PRN migraine oxyCODONE (oxyCODONE) 5 Mg/5 Ml Solution 5 MG PO Q4H PRN PRN For Severe Pain General Time Seen by MD: 20:42 Chief Complaint Nausea, Vomiting Hx Obtained From: Patient, EMS Arrived By: Ambulance Onset Occurred: Yesterday Symptom Duration: Since onset Location: : Diffuse Quality: Painful Severity: Current: Moderate Severity: Maximum: Moderate Recent Healthcare: Recent doctor visit, Recent testing, Previous diagnosis, Prior workup Similar Sx Previous: Yes Past Medical History Past Medical History Notes: Code status: full code Patient admitted October 23-2016 for dysphagia secondary to squamous cell carcinoma, hyperkalemia Past Medical History Head and neck cancer status post chemotherapy and radiation followed by Dr. Jurado (stage IV hypopharynx squamous cell carcinoma) and apparently completed treatment for the carcinoma October 14 COPD Asthma Cluster headaches Cisplatin-induced acute renal injury Cisplatin-induced hearing loss Past Surgical History Inguinal hernia repair Chest tube in 1992 Elbow surgery 1995 Endoscopy September 2016 PEG tube placement Family History Mother of lung cancer at age 65 Smoking History Current Every Day Smoker Social History Alcohol Use: Denies alcohol use Drug Use: Denies drug use, THC Other Social History: Good social support, Ambulatory Status Independent Review of Systems Constitutional: Denies: Chills, Fever GI: Reports: Abdominal pain, Constipation, Nausea, Vomiting, Denies: Bloody/tarry stool, Diarrhea, Hematemesis, Melena Complete sys rev & neg: except as marked. Respiratory: Denies: Non-productive cough, Shortness of breath Cardiovascular: Denies: Chest pain, Dyspnea on exertion Physical Exam Initial Vital Signs Vital Signs (First) Date Time Temp Pulse Resp B/P Pulse Ox O2 Delivery O2 Flow Rate FiO2 11/01/16 20:28 37 66 21 155/84 99 Room Air Initial VS: Reviewed, Vital signs normal Head / Eyes: Atraumatic, Normocephalic, PERRL ENT: Mucous membranes moist, Conjunctiva normal, No scleral icterus Neck: Supple, Full range of motion Respiratory: Breath sounds normal, Clear to auscultation, No respiratory distress Cardiovascular: Regular rate & rhythm, Heart sounds normal, Intact distal pulses Extremities: Vascular intact, Neuro intact, No swelling, No tenderness Skin: Warm, Dry, No cyanosis Neurologic: Alert, Oriented, Nonfocal Psychiatric: Mood/affect normal, Behavior normal, Normal thought content General/Constitutional: Awake, Alert, No acute distress, Cooperative, Not toxic appearing Distress / Hydration: Positive: Dehydration mild Appearance / Presentation: Positive: Cachectic Chronically ill-appearing Appears fatigued Abdomen: Atraumatic, Soft, No guarding, No rebound, No distention, No palpable mass Tender about left abdomen Interpretation & Diagnostics Lab Results Interpretation Result Diagram: 11/01/16204311/01/162043 Test 11/01/16 20:44 White Blood Count 5.6th/mm3 (3.8-10.1) Red Blood Count 2.69mil/mm3 (4.40-5.80) Hemoglobin 8.7g/dL (13.8-17.2) Hematocrit 26.1% (41.0-50.0) Mean Corpuscular Volume 97.0fL (81-100) Mean Corpuscular Hemoglobin 32.3pg (27.0-35.0) Mean Corpuscular Hemoglobin Concent 33.3% (32.0-37.0) Red Cell Distribution Width 16.9% (12.3-15.4) Platelet Count 316bil/L (150-400) Neutrophils (%) (Auto) 78.2% (40-74) Lymphocytes (%) (Auto) 13.6% (14-46) Monocytes (%) (Auto) 6.8% (4-12) Eosinophils (%) (Auto) 0.5% (0-5) Basophils (%) (Auto) 0.4% (0-3) Sodium Level 139mEq/L (134-144) Potassium Level 5.5mEq/L (3.5-5.2) Chloride Level 96mEq/L (97-108) Carbon Dioxide Level 25mmol/L (18-29) Blood Urea Nitrogen 74mg/dL (6-24) Creatinine 3.52mg/dL (0.76-1.27) Estimat Glomerular Filtration Rate 19mL/min (>59) Glucose Level 110mg/dL (60-99) Calcium Level 10.3mg/dL (8.5-10.1) Total Bilirubin 0.4mg/dL (0.0-1.2) Aspartate Amino Transf (AST/SGOT) 13U/L (0-50) Alanine Aminotransferase (ALT/SGPT) 8U/L (0-44) Alkaline Phosphatase 73U/L (25-150) Total Protein 7.8g/dL (6.4-8.4) Albumin 4.1g/dL (3.4-5.0) Lipase 8U/L (13-60) Lab Results Interpretation: CBC - leukocytosis, anemia is improved compared to recent values CMP, mild hyperkalemia, worsening renal function UA pending ECG Interpretation ECG Interpretation: No findings to suggest hyperkalemia Time: 22:12 Interpreted by: ED physician Normal ECG Interpretation: Normal ECG w/ rate of... (78), Normal rate, Normal sinus rhythm, No acute ischemic changes, Normal QRS, Normal axis, Normal intervals, Adequate tracing Re-Eval/Medical Decision Med Decision/Clinical Course This is a 56-year-old male with a history of a neck cancer for which she is to finish chemotherapy, and he has some renal insufficiency as a result of the chemotherapy, but has had problems with dysphagia such she has had a recent PEG tube placed, and now presents with several days of nausea and vomiting. He reports after multiple retching has had a trace amount of blood with his emesis. 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 Increasingly weak , and the nausea persisted so his come to the emergency department. He appears chronically ill, alopecic, and fatigue-but not toxic. He has not been able to use his PEG tube much of the past day due to ongoing nausea. He does clinically appear dehydrated. He received IV fluids through his port. His abdomen is soft without clinical signs of mikael surgical abdomen. I am not finding evidence for need for emergent imaging. Labs continue demonstrate anemia, but this improved compared to previous. However he has worsening renal failure, likely combination of dehydration and the recent cisplatin toxicity described in his previous admission. He has lower marginal hyperkalemia, not to the degree that he had previous. Given his ongoing nausea vomiting and symptoms with worsening renal failure, readmission is indicated. Patient's being hydrated is improved to prochlorperazine. Empiric PPI therapy is also being given given the description of what sounds like Nakita-Ewing. He status post recent endoscopy. Source of Hx: Old records, EMS, Family Re-Evaluation/Progress : Time of Eval: 21:43 Patient Status: Condition improved, Moderate relief Re-Evaluation/Progress Note: Pt rechecked. Family now in room. Informed pt of need for admissiond due to dehydration and acute renal failure. Pt understands and agrees with plan for admission. All questions addressed. Consultation : Referral / Consult Name: Reginaldo Elizondo MD Call Returned at: 22:40 Scrap Cutter: Will see patient, Agrees with eval, Agrees with plan, Accepts admit Differential Diagnosis: Positive: Dehydration, Nakita-Ewing syndrome, Negative: Boerhaave syndrome, Cholecystitis, Crohn's disease, Drug overdose, Drug-med reaction, Labyrinthitis, Meniere's disease, Pancreatitis Counseled Regarding: Diagnosis, Lab results, Need for admission Discharge & Departure Impression: Primary Impression: Acute kidney failure Acute renal failure type: unspecified Qualified Code: N17.9 - Acute kidney failure, unspecified Additional Impressions: Anemia Anemia type: unspecified type Qualified Code: D64.9 - Anemia, unspecified Dehydration Nausea and vomiting Vomiting type: unspecified Vomiting Intractability: non-intractable Qualified Code: R11.2 - Nausea with vomiting, unspecified Head and neck cancer Nakita-Ewing syndrome Disposition: ADMITTED TO HOSPITAL Discharge Condition All VS Reviewed: Yes Condition: Stable Referrals: Dawson Forman MD (PCP) Caitlinibjade Attestation Portions of this note were transcribed by Venancio Quiroz and Claudia Chavez. I, Dr. Ruiz, personally performed the history, physical exam and medical decision-making; I reviewed and confirmed the accuracy of the information in the transcribed note. Signed by Venancio Quiroz and Juvenal York, 11/01/162054 copies to: Dawson Forman MD, Matthew F MD Nov 01, 2016 20:44 VENANCIO QUIROZ Nov 01, 2016 20:50
[2016-11-01] MEDS ORDERED: 0.9% Sodium Chloride 1,000 ML IV ONE ×2 (20:45→21:45)
[2016-11-01] MEDS ORDERED: ProchlorPERazine 5 mg/mL 2 mL Inj IVPUSH ONE (20:45)
[2016-11-01 20:53] LABS: BASOPHILS % (AUTO) 0.4 % (0-3); EOSINOPHILS % (AUTO) 0.5 % (0-5); MONOCYTES % (AUTO) 6.8 % (4-12); Mean Corpuscular Hemoglobin 32.3 pg (27.0-35.0); NEUTROPHILS % (AUTO) 78.2 % (40-74); Platelet Count 316 bil/L (150-400)
[2016-11-01] MEDS: HYDROmorphone 1 mg/mL Inj IVPUSH PRN (20:59)
[2016-11-01] MEDS ORDERED: Pantoprazole 4 mg/mL 10 mL Inj IVPUSH ONE (22:10)
[2016-11-01] MEDS ORDERED: Alum-Mag Hydrox-Simeth 30 mL Suspension PO PRN (23:30)
[2016-11-01] MEDS ORDERED: Ondansetron 2 mg/mL 2 mL Inj IVPUSH PRN (23:30)
[2016-11-01] MEDS ORDERED: 0.9% Sodium Chloride 1,000 ML IV SCH (23:30)
[2016-11-02] VITALS (10 sets, daily range): BP systolic 133–155; BP diastolic 59–77; PULSE 56–84; RESP 16–20; O2SAT 95–100
[2016-11-02] MEDS ORDERED: HYDROcodone-APAP 5-325 mg Tablet PO PRN (00:05)
--- NOTE | 2016-11-02 00:12 | PCM.HPMED ---
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 Jurado, cisplatin kidney injury, and cisplatin hearing loss who presents today with nausea and vomiting. The patient states that beginning yesterday he began vomiting. At that time he lowered his PEG tube feeds from 100 mL to 25 mL. He continued his feeds today at 25 mL but after the feeds began vomiting. He had 12 episodes of vomitus with mostly dark brown color but some black specks mixed in. He also states he had a episode of some bright red streaks in the vomit while in the emergency department. He states that he has nausea and is not able to control this with Zofran. He also has associated abdominal discomfort in the left lower quadrant but denies any pain. He states that his bowel movements have been occurring every 2 days and describes them as "pebble-like.". He needed an enema about 1 week ago to have a bowel movement. He denies any chest pain or pressure, shortness of breath, diarrhea, fevers, chills. The patient's most recent hospital stay occurred from October 23-2016 at which time he was admitted for hyperkalemia secondary to cisplatin and worsening kidney injury. During that hospital stay he received 1 unit PRBCs due to normocytic anemia. Endoscopy on October [address] Crawford with PEG tube placement. Initial vital signs in the emergency department were temperature 37 Celsius, pulse 66, respiratory rate 21, blood pressure 155/84, satting at 90% on room air. Initial laboratory values were WBC 5.6, hemoglobin 8.7, hematocrit 26.1, and platelets 316. Review of records from past hospital stay shows stability of CBC. Potassium 5.5, BUN 74, creatinine 3.52, glucose 110, calcium 10.3, albumin 4.1. In the emergency department he was provided with pantoprazole 40 mg, 2 boluses of normal saline, Compazine 5 mg, and Dilaudid 1 mg. Patient has improvement in symptoms after these interventions. Review of Systems: A comprehensive review of systems was conducted with the patient and found to be negative except as above in the History of Present Illness. Allergies Coded Allergies: No Known Allergies (Unverified , 10/08/16) Home Medications Discharge Medications Beclomethasone Dipropionate (Qvar) 8.7 Gm Aer.w.adap 2 PUFF INHALATION BID ( Reported) Beclomethasone Dipropionate (Qvar) 8.7 Gm Aer.w.adap 1 PUFF INHALATION BID ( Reported) Bupropion ER (Wellbutrin SR) 150 Mg Tablet.er 150 MG PO BID (Reported) Nicotine 7 mg/24 hr Patch (Nicotine 7 mg/24 hr Patch) 1 Each Patch.td24 1 PATCH TRANSDERM DAILY (Reported) Silver Sulfadiazine (Ssd 25GM Pp) 25 Gm Cr 1 APPLIC TOPICAL TID (Reported) As needed Albuterol Sulfate (Ventolin HFA Inhaler) 200 Puff/18 Gm Inhaler 2 PUFF INH Q4 PRN PRN For Wheezing (Reported) Alprazolam (Alprazolam) 0.5 Mg Tablet 0.5 MG PO TID PRN PRN For Anxiety ( Reported) Benzonatate (Benzonatate) 200 Mg Capsule 200 MG PO TID PRN PRN For Cough ( Reported) Cyproheptadine HCl (Cyproheptadine HCl) 4 Mg Tablet 4 MG PO TID PRN PRN For Eye Irritation (Reported) Hydrocodone-Acetaminophen 5-325 mg (Hydrocodone-Acetaminophen 5-325 mg) 1 Each Tablet 1-2 TABLET PO q4-6 hours PRN PRN For Pain (Reported) Lorazepam (Ativan) 0.5 Mg Tablet 0.5 MG PO TID PRN PRN For Nausea (Reported) Ondansetron ODT (Ondansetron ODT) 4 Mg Tab.rapdis 8 MG PO Q4H PRN PRN For Nausea /Vomiting Prescribed by: CIERA DIEGO MD Sumatriptan Succinate (Sumatriptan Succinate) 6 Mg/0.5 Ml Vial 6 MG SQ BID PRN PRN migraine (Reported) oxyCODONE (oxyCODONE) 5 Mg/5 Ml Solution 5 MG PO Q4H PRN PRN For Severe Pain Prescribed by: CIERA DIEGO MD [facility] Stage IV hypopharynx squamous cell carcinoma status post chemotherapy and radiation. 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 Father had Parkinson's disease. Social History Hx Alcohol Use: No Hx Substance Use: No (marijuana) Hx Tobacco Use: Yes Smoking Status: Former Smoker (patient states that he stopped smoking 4 weeks ago.) Exam Vital Signs Vital Sign - Last Date Time Temp Pulse Resp B/P Pulse Ox O2 Delivery O2 Flow Rate FiO2 11/01/16 20:43 66 21 163/79 99 Room Air 11/01/16 20:28 37 Intake and Output 11/01/16 11/01/16 11/02/16 Cumulative From/Thru 15:00 23:00 07:00 11/01/16 20:28 - 11/01/16 21:00 Intake Total 999 ml 999 ml Output Total 50 ml 50 ml Balance 949 ml 949 ml Intake IV Total 999 ml 999 ml Output Emesis 50 ml 50 ml Exam General: No acute distress, thin and frail looking, difficulty hearing. HEENT: Normocephalic, atraumatic. External ears without defect. Pupils equal, round, and reactive to light and accommodation. Anicteric sclerae, moist conjunctivae, and no lid lag. Thrush present in oropharynx. Alopecia. Neck: Supple with full range of motion. No jugular venous distension. Increased pigmentation surrounding neck. No lymphadenopathy or thyromegaly. Cardiovascular: Regular rate and rhythm with no murmurs, rubs, or gallops appreciated Pulmonary: Clear to auscultation bilaterally with no crackles, wheezes, or rhonchi. Normal respiratory effort with no use of accessory muscles. Abdomen: Bowel tones present. PEG tube in place with no surrounding erythema. Soft, tender to palpation in left lower quadrant without rebound or guarding, nondistended. No hepatosplenomegaly or masses appreciated. Extremities: No clubbing, cyanosis, edema, or lymphadenopathy appreciated. Skin: Normal temperature, turgor, and texture; no rash, ulcers, or subcutaneous nodules appreciated. Neurological: Cranial nerves grossly intact. Normal muscle strength, tone, and bulk. Reflexes, coordination, and sensory function within normal limits. No known gait impairment. Psychiatric: Normal mood and affect. Alert and oriented to person, place, and time. Lab and Diagnostics Result Diagram: 11/01/16204311/01/162043 12-lead ECG EKG sinus rhythm with rate of 80 and no axis deviation. QTC 431 Assessment & Plan This is a 56 year old male with PEG tube placement due to stage IV hypopharynx SCC who presents with nausea and vomiting after PEG tube feedings at reduced rate . He is severely dehydrated and has a acute on chronic kidney injury requiring IV fluids . He also will need observation for possible blood in his vomit. Acute on chronic nausea and vomiting, present on admission, ongoing: -Some blood present in the vomit. Possible Nakita-Ewing tear. We will continue to monitor. -Patient has improved symptoms after Compazine and 2 boluses of normal saline and emergency department -We will continue Compazine as this improved patient's symptoms in the emergency department -Normal saline at 100 mm per hour -Clear liquid diet ordered. 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 -Pain management: Fentanyl and hydrocodone/acetaminophen. Acute on chronic kidney injury, present on admission, ongoing: -This is likely chronic kidney injury from cisplatin with acute kidney injury due to prerenal azotemia. -BUN 74 and creatinine 3.52 on admit. On 10/25/2016 BUN was 54 and creatinine 2.73 -Normal saline at 100 mL per hour Hyperkalemia likely secondary to replacement and worsening renal injury, resolved -Potassium on admit is 5.5. Patient was previously treated at our hospital due to elevated potassium and EKG changes. At that time he was given Kayexalate and calcium gluconate. -No concerning abnormalities on EKG. -Hyperkalemia may be partly due to acute kidney injury. Therefore we will hydrate patient before considering Kayexalate. -We will repeat potassium. If potassium remains elevated consider Kayexalate. Oral candidiasis, present on admission, ongoing: -Patient declines nystatin swish and swallow as he states it makes him nauseous. -He was previously treated with Fluconazole. -Fluconazole 200mg IV daily added. Normocytic anemia secondary to chemotherapy -Hemoglobin 8.7. MCV 97. -Continue to monitor. Constipation, present on admission, chronic: -Miralax added. Cisplatin-induced acute renal injury -Continue to monitor. Cisplatin-induced hearing loss -Continue to monitor. COPD -Continue home inhalers DVT prophylaxis with SCD;s. Dayteam an consider heparin DVT prophylaxis. Patient is admitted under inpatient status with expected length of stay greater than 2 midnights due to severity of presenting symptoms, risk of adverse event, and complexity of treatment plan. Pain Evaluation: Adequate Pain Control Resuscitation Status: CPR: Attempt Resuscitation Attending Statement The patient was seen and examined together with Dr. Flores on 11/01 and I agree with the history, exam and plan as outlined in the note above. Rico Flores DO Nov 02, 2016 00:12 Reginaldo Elizondo MD Nov 02, 2016 03:59
[2016-11-02] MEDS: 0.9% Sodium Chloride 1,000 ML IV SCH ×3 (00:46→19:49)
[2016-11-02] MEDS: Ondansetron 2 mg/mL 2 mL Inj IVPUSH PRN ×3 (00:55→19:55)
[2016-11-02] MEDS: HYDROmorphone 1 mg/mL Inj IVPUSH PRN (00:55)
[2016-11-02] MEDS ORDERED: LORazepam 0.5 mg Tablet PO PRN (02:30)
[2016-11-02] MEDS ORDERED: Albuterol 2.5 mg/3 mL Inhalation Solution NEB PRN (02:41)
[2016-11-02] MEDS ORDERED: ALPRAZolam 0.5 mg Tablet PO ONE (02:55)
--- NOTE | 2016-11-02 03:59 | NUR ---
Admit Note Pt admitted for N&V, Dehydration. Pt arrived via gurney accompanied by cop. Pt transferred self to Hospital Bed with SBA, gait steady. Pt c/o mild nausea w/o emisis, on admit and pain level 6/10. Pt medicated with 4mg IV Zofran for nausea and 1mg IV Dilaudid for pain control, both with good affect. VS stable and afebrile. No co chest pain, Tele SR 70-80s per Occupational Analyst. IV NS infusing at 100mls per hour, per MD orders. Pt oriented to room, bed, TV, Telephone and call light system. [employer]air alarm on bed. MD ordered 2 units of PRBCs to be on Hold in the lab. Med Rec completed to the best of the Pt's recall. Care ongoing.
[2016-11-02 08:44] LABS: BASOPHILS % (AUTO) 0.3 % (0-3); EOSINOPHILS % (AUTO) 0.8 % (0-5); MONOCYTES % (AUTO) 9.1 % (4-12); Mean Corpuscular Hemoglobin 31.7 pg (27.0-35.0); Mean Corpuscular Volume 98.7 fL (81-100); Platelet Count 263 bil/L (150-400)
--- NOTE | 2016-11-02 08:44 | NUR ---
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 Jurado, presents with nausea and vomiting. The patient states that beginning yesterday he began vomiting. At that time he lowered his PEG tube feeds from 100 mL to 25 mL. He continued his feeds today at 25 mL but after the feeds began vomiting again. He had 12 episodes of vomitus with mostly dark brown color but some black specks mixed in. He also states he had a episode of some bright red streaks in the vomit while in the ED. He states that he has nausea and is not able to control this with Zofran. He also has associated abdominal discomfort in the left lower quadrant but denies any pain. He states that his bowel movements have been occurring every 2 days and describes them as "pebble-like.". He needed an enema about 1 week ago to have a bowel movement. Nephrology consult ordered related to his acute on chronic Cisplatin renal failure. He is severely dehydrated and has oral nadia. PMHx:Stage IV hypopharynx squamous cell carcinoma, status post chemoradiation, COPD, cluster headaches, Cisplatin induced renal failure and hearing loss, smoking, ETOH, pneumothorax. DIET:Clear liquid. LABS: Reviewed. K+ 5.6. Chloride 96, BUN 74, Cr 3.52, Glu 110, Ca 10.3, Lipase 8 (11/01). MEDICATIONS: Reviewed. Compazine, MiraLax. NUTRITION FOCUSED PHYSICAL ASSESSMENT: GI symptoms / stool: Pt. is constipated.Sumanth: 19. Skin Integrity: No issues reported. ANTHROPOMETRICS: Current Wt: 78.4 kgBMI: 21.0 kg/m2. Weight loss since previous discharge: 1.3 kg Weight loss: Approx. 20% x 6 months = severe malnutrition. IBW: 91.81 kg (85% IBW) UBW: 96 kg. ESTIMATED NEEDS (SEVERE MALNUTRITION, CANCER CACHEXIA): Calories: 2352 - 2744 kcal (30 - 35 kcal / kg BW) Protein: 118 - 157 g protein (1.5 - 2.0 g/ kg BW) Fluid: Approx. 2352 mL (30 ml / kg BW) NUTRITION DIAGNOSIS: 1)Severe malnutrition related to altered GI function, cancer cachexia, as evidenced by approx. 20% weight loss x 6 months, ongoing nausea, vomiting, dehydration. 2)Altered GI function related to significant constipation, as evidenced by requirement for enema last week, passing hard, "pebble-like" stool. INTERVENTION: 1) Will add clear liquid supplement to trays. 2) PEG tube feeding orders to be placed in chart for provider authorization, as follows. Initiate Jevity 1.5 at 25 ml/hr x 8 hr. Once tolerance established, recommend advance 10 ml every 4 hr. to goal rate 75 ml/hr. Enteral feeding at goal will provide 2587 kcal, 110 g protein, meeting 100% nutrient needs. Flush dose 40 mL H2O every 4 hr. In the event IVF discontinued, recommend flush dose 135 mL every 3 hr. to provide additional 1080 mL fluid. MONITOR/EVALUATE: Enteral feeding start / advance / tolerance, diet tolerance, PO intake, labs, GI/nutrition status. Follow up per high nutrition risk guidelines.
--- NOTE | 2016-11-02 09:07 | DRSVH ---
PROCEDURE: X-RAY ABDOMEN, ONE VIEW ([id number]) INDICATIONS: eval for SBO TECHNIQUE: One view of the abdomen acquired. COMPARISON: [facility], CR, XR ABD AP 1VW, 10/09/2016, 17:54. FINDINGS: Surgical changes and devices: Percutaneous gastrostomy tube is noted. Safety pin projects over the mid abdomen which is presumably external to the patient. Bowel: Bowel gas pattern is normal. Soft tissues: Multiple scattered calcifications likely related to colonic diverticular disease. Visualized solid organ contours appear normal in size. Bones: No suspicious bony lesions. IMPRESSION: No evidence of small bowel obstruction. Dictated by: Viji Whitfield MD, PhD on 11/02/2016 at 9:04 Approved by: Viji Whitfield MD, PhD on 11/02/2016 at 9:06
[2016-11-02] MEDS: buPROPion SR 150 mg ER12 Tablet PO SCH ×2 (09:11→19:49)
[2016-11-02] MEDS: Fluticasone 100 mCg Inhaler INHALATION SCH ×2 (09:12→19:49)
[2016-11-02] MEDS: Fluconazole Inj 200 MG in IV Premix 1 EACH IV SCH (09:12)
[2016-11-02] MEDS: fentaNYL-PF 50 mCg/mL 2 mL Inj IV PRN (09:27)
[2016-11-02] MEDS ORDERED: PEG/Electrolytes 4,000 mL Solution PO ONE (10:30)
--- NOTE | 2016-11-02 10:48 | NUR ---
Social Work: Screen D: Per EMR review, pt is a 56 year old male admitted for Nausea, Vomiting, Dehydration. Pt insurance is [employer]. PCP is Dawson Forman. NOK is Bernice Huff s/o. Advanced directives information declined by pt and - has information at home. Readmit score not entered at this time. Pt readmit from 10/25 after admission for a PEG tube placement. Pt discussed in am rounds. Pt anticipated to require hospitalization through the weekend. Order received to coordinate resumed care with [facility] for PEG Tube and tube feed management. Pt lives at home with his in [place]. Pt is I with ambulation. Pt continues with PEG tube for tube feeding managed by [facility]. TYING MACHINE OPERATOR LUMBER spoke with Erika, manager business information staff with [facility], to notify that pt is admitted and that access has been provided. She will note this in pt's chart and [facility] will follow. A: Pt who is I at baseline with satge IV cancer followed by Dr. Jurado with Oncology. P: Anticipate pt to discharge home with resumed [facility] to manage pt's PEG tube and tube feeds. TYING MACHINE OPERATOR LUMBER to continue to follow if needs arise. BRADLEY Weston
--- NOTE | 2016-11-02 13:02 | PCM.PNMED ---
Subjective Date of Service Nov 02, 2016 Subjective Patient's nausea and vomiting improved greatly overnight, currently he expresses only mild intermittent nausea. He remains constipated with an unproductive urge to defecate. He states that he is otherwise near enough to baseline. He reports some ongoing abdominal discomfort, and denies chest pain, SOB, dysuria, GERD, or throat pain beyond baseline. No significant overnight events Comprehensive ROS negative except as outlined above. Exam Vital Signs Vital Sign - Last Date Time Temp Pulse Resp B/P Pulse Ox O2 Delivery O2 Flow Rate FiO2 11/02/16 12:13 36.8 59 20 155/77 98 Room Air Intake and Output 11/01/16 11/01/16 11/02/16 Cumulative From/Thru 15:00 23:00 07:00 11/01/16 20:28 - 11/02/16 06:42 Intake Total 999 ml 583 ml 1582 ml Output Total 50 ml 625 ml 675 ml Balance 949 ml -42 ml 907 ml Intake Oral 340 ml 340 ml IV Total 999 ml 243 ml 1242 ml Output Urine Total 625 ml 625 ml Emesis 50 ml 50 ml Exam Gen: A/O x3 pleasant cooperative gentleman with stigmata of recent chemotherapy such as hair loss and loose skin indicative of rapid weight loss Neck: Supple, non tender, Full ROM, hyperpigmentation about the neck HEENT: Hard of hearing, PERRL, EOMI, no scleral icterus, no conjunctival pallor CV: RRR, no murmurs rubs or gallops Resp: Lungs CTA BL, no wheezing rales or rhonchi Abd: PEG tube in place without erythema of purulence, BS+ 4Q, soft mild tenderness to palpation around PEG insertion site Extr: No clubbing cyanosis or edema Neuro: CN 2-12 grossly intact, no focal neurologic deficit Psych: Normal mood and affect IVs and Medications IV Fluids NS @ 100 ml hr 100 ml NS delivered with IV meds Medications Reviewed: Medications were reviewed in detail Lab and Diagnostics Item Value Date Time Red Blood Count 2.27 mil/mm3 L 11/02/16 0825 Mean Corpuscular Volume 98.7 fL 11/02/16 0825 Mean Corpuscular Hemoglobin Concent 32.1 % 11/02/16 0825 Mean Corpuscular Hemoglobin 31.7 pg 11/02/16 0825 Red Cell Distribution Width 16.9 % H 11/02/16 0825 Neutrophils (%) (Auto) 67.0 % 11/02/16 0825 Lymphocytes (%) (Auto) 22.3 % 11/02/16 0825 Monocytes (%) (Auto) 9.1 % 11/02/16 0825 Eosinophils (%) (Auto) 0.8 % 11/02/16 0825 Basophils (%) (Auto) 0.3 % 11/02/16 0825 Blood Urea Nitrogen 68 mg/dL H 11/02/16 0825 Estimat Glomerular Filtration Rate 22 mL/min 11/02/16 0825 Calcium Level 9.3 mg/dL 11/02/16 0825 Total Bilirubin 0.3 mg/dL 11/02/16 0825 Aspartate Amino Transf (AST/SGOT) 11 U/L 11/02/16 0825 Alanine Aminotransferase (ALT/SGPT) 7 U/L 11/02/16 0825 Alkaline Phosphatase 61 U/L 11/02/16 0825 Total Protein 6.0 g/dL L 11/02/16 0825 Albumin 3.4 g/dL 11/02/16 0825 Prothrombin Time 10.7 sec 11/02/16 0825 Prothromb Time International Ratio 1.00 ratio 11/02/16 0825 Result Diagram: 11/02/16 0825 11/02/16 0825 X-Rays, CTs and MRIs X-RAY ABDOMEN, ONE VIEW IMPRESSION: No evidence of small bowel obstruction. Dictated by: Viji Whitfield MD, PhD on 11/02/2016 at 9:04 Approved by: Viji Whitfield MD, PhD on 11/02/2016 at 9:06 . 12-lead ECG EKG sinus rhythm with rate of 80 and no axis deviation. QTC 431 Assessment & Plan This is a 56 year old male with PEG tube placement due to stage IV hypopharynx SCC who presents with nausea and vomiting after PEG tube feedings at reduced rate . He was likely very dehydrated upon presentation managed with fluid resuscitation. Patient is quite constipated which may be the initiating factor in his clinical sequelae, constipation leading to nausea and vomiting which lead to fluid depletion and subsequent pre-renal FRANTZ with underlying Cisplatin induced CKD. Acute on chronic nausea and vomiting, present on admission, ongoing: -Likely secondary to constipation -Some blood present in the vomit. Possible Nakita-Ewing tear. We will continue to monitor. -Holding anti-coagulation due to concern for upper GI bleed, will initiate SubQ Heparin if hematemesis resolves -Patient has improved symptoms after Compazine and 2 boluses of normal saline and emergency department -We will continue Compazine as this improved patient's symptoms in the emergency department -Normal saline at 100 mm per hour -Clear liquid diet ordered. 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 -Pain management: Fentanyl and hydrocodone/acetaminophen. Acute on chronic kidney injury, present on admission, ongoing: -This is likely chronic kidney injury from cisplatin with acute kidney injury due to prerenal azotemia. -BUN 74 and creatinine 3.52 on admit. On 10/25/2016 BUN was 54 and creatinine 2.73 -Normal saline at 100 mL per hour Hyperkalemia likely secondary to replacement and worsening renal injury, resolved -Potassium on admit is 5.5. Patient was previously treated at our hospital due to elevated potassium and EKG changes. At that time he was given Kayexalate and calcium gluconate. -Constipation likely contributing to this from continual reabsorption of K -No concerning abnormalities on EKG. -Patient poor candidate for Kayexalate given underlying constipation and risk for bowel injury Oral candidiasis, present on admission, ongoing: -Patient declines nystatin swish and swallow as he states it makes him nauseous. -He was previously treated with Fluconazole. -Fluconazole 200mg IV daily added. Normocytic anemia secondary to chemotherapy -Hemoglobin 8.7. MCV 97. on presentation -Continue to monitor. Constipation, present on admission, chronic: -Miralax added. -AP film of the abdomen obtained, negative for SBO -GoLytely initiated to encourage bowel catharsis -Consider Intestinal opiate antagonist if this persists Cisplatin-induced acute renal injury -Continue to monitor. Cisplatin-induced hearing loss -Continue to monitor. COPD -Continue home inhalers Disposition: Patient will likely need 1-2 more days of management for FRANTZ and to ensure that he can have regular BMs with medical therapy, will likely be able to DC home pending resolution of acute symptoms. Pain Evaluation: Adequate Pain Control VTE Prophylaxis: Sub-Q Heparin (Unfractionated) Resuscitation Status: CPR: Attempt Resuscitation Attending Statement The patient was seen and examined together with Dr. Colby on 11/02/2016 and I agree with the history, exam and plan as outlined in the note above. . Juventino Colby DO Nov 02, 2016 13:02 Ray Carcamo MD Nov 02, 2016 16:48
--- NOTE | 2016-11-02 15:27 | CONS ---
[address] [address] CONSULTATION REPORT PATIENT: JAYLAN SNOW : 1960 MR#: [id number] ADMIT: 11/01/2016 JOB ID: [id number] DATE OF SERVICE: 11/02/16 NEPHROLOGY CONSULTATION: REQUESTING PHYSICIAN: Dr. Juventino Colby REASON FOR CONSULTATION: Management of abnormal kidney function and hyperkalemia. CHIEF COMPLAINT: Nausea and vomiting. 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 The patient was just recently admitted between October 23 and October 25 due to dehydration, hyperkalemia and acute kidney injury. The patient later on had PEG tube placement on October 24, 2016. The patient came in last night with a complaint of multiple episodes of nausea and vomiting. His reported that he had more than a dozen of vomitus. Initially it was brownish and watery. Later on turned to be blackish vomitus. They also saw some bright red blood in the vomitus as well in the emergency department. The patient reported that he had lost weight from 225 to 179 pounds over the past month or so. He reports history of nocturia a couple of times per night over the past two years. He takes Vicodin as needed for pain. He does not used any ibuprofen or other NSAIDs. His initial BMP showed a potassium of 5.5, BUN of 74, creatinine of 3.52. Of note, he had history of acute kidney injury related to cisplatin. His baseline serum creatinine was around 0.7. He reported that he finished the chemotherapy and radiation last month. The patient also complained of being constipated. He has not had any bowel movement since last Friday, that was three days ago. He reports no fever, no chills, no cough, no hemoptysis. His appetite is poor. PAST MEDICAL HISTORY: 1. COPD. 2. History of tobacco abuse. 3. Stage IV hypopharynx squamous cell carcinoma status post chemo and radiation followed by Dr. Jurado. 4. History of cisplatin-induced acute kidney injury. 5. Failure to thrive status post PEG tube placement. 6. History of alcohol abuse. 7. History of spontaneous pneumothorax. PAST SURGICAL HISTORY: 1. Status post inguinal hernia repair x2. 2. Chest tube placement in 1992 for a spontaneous pneumothorax. 3. Elbow surgery in 1995. 4. PEG tube placement on October 24, 2016. FAMILY HISTORY: Mother of lung cancer at age 65. ALLERGIES: No known drug allergies. SOCIAL HISTORY: Denies current use of alcohol, tobacco or illicit drugs. The patient quit smoking four weeks ago. REVIEW OF SYSTEMS: Fourteen point review of system was performed. PHYSICAL EXAMINATION: Vitals: Temperature 36.8, pulse 59, respiratory 20, blood pressure 155/77, O2 sat 98% on room air. General appearance: Awake, alert, oriented x3. In on acute distress. HEENT: Mild pallor. No jaundice. No JVD. No lymphadenopathy. No thyroid enlargement. Dry mucous membranes. Poor skin turgor noted. Hyperpigmentation noted on the neck. No lymphadenopathy. No thyroid enlargement. Heart: Regular rhythm. Normal S1, S2. No murmurs, rubs or gallops. Lungs: Clear to auscultation bilaterally. No wheezing. No rhonchi. Decreased breath sounds at bases. Abdomen: Soft, active bowel sounds. Nontender. Nondistended. No hepatosplenomegaly. PEG tube in place. Extremities: No edema, cyanosis or clubbing of fingers. Skin: No rashes. No excoriation. Poor skin turgor noted. LABORATORY: Sodium 141, potassium 4.8, chloride 102, bicarbonate 25, BUN 68, creatinine 3.18, calcium 9.3, albumin 3.4, hemoglobin 7.2, WBC 3.7, platelets 263. INR 1.0. IMAGING: Abdominal x-ray showed no evidence of small bowel obstruction. ASSESSMENT: 1. Acute kidney injury with underlying disease of cisplatin induced acute kidney injury. The patient appears hypovolemic. His blood pressure has been stable throughout. No evidence of hypotension. He does not use any NSAIDs. He has not received any IV contrast. The etiology of acute kidney injury is likely due to intravascular volume depletion. 2. Hyperkalemia secondary to renal insufficiency, constipation, poor renal perfusion. 3. Hypercalcemia secondary to intravascular volume depletion. 4. Persistent nausea, vomiting and possible hematemesis. 5. Stage IV hypopharynx squamous cell carcinoma status post chemoradiation. 6. Failure to thrive status post PEG tube placement. Plan: Per renal standpoint, I would recommend to aggressively hydrate the patient. Recommend normal saline 150 cc/hour. I would not give Kayexalate as for a laxative since it may cause bowel ischemia. I would recommend GoLYTELY to treat for constipation. Recommend to monitor his potassium. If we are able to treat the constipation and potassium remains elevated, we can give him Kayexalate. Recommend a postvoid residual to rule out any obstructive uropathy. We will repeat a BMP in the morning. Avoid nephrotoxins. Renally adjust medications. Thank you for allowing me to participate in the care your patient. We will monitor along with you. SHERON
--- NOTE | 2016-11-02 16:00 | NUR ---
BMs/Nutrition Pt stating having 3 small BMs after drinking only half of Golytely through the day. Refusing to have Jevity running due to anxiety about having more nausea and vomit. Pt stating will start later when feeling more comfortable. made aware.
[2016-11-02] MEDS ORDERED: Heparin 5,000 Unit/mL Inj SUBQ SCH (16:30)
[2016-11-02] MEDS: 0.9% Sodium Chloride 250 ML IV SCH (17:57)
[2016-11-02] MEDS ORDERED: HepLOK Flush 100 unit/mL 5 mL Inj IVFLUSH PRN (18:00)
[2016-11-02] MEDS ORDERED: Sodium Chloride LOK Flush 10 mL Syringe IVFLUSH PRN ×2 (18:00)
[2016-11-03] VITALS (12 sets, daily range): BP systolic 131–156; BP diastolic 66–87; PULSE 60–76; RESP 16–20; O2SAT 94–98
[2016-11-03 01:28] LABS: BASOPHILS % (AUTO) 0.6 % (0-3); EOSINOPHILS % (AUTO) 1.9 % (0-5); MONOCYTES % (AUTO) 11.7 % (4-12); Mean Corpuscular Hemoglobin 32.3 pg (27.0-35.0); Mean Corpuscular Volume 96.5 fL (81-100); NEUTROPHILS % (AUTO) 56.9 % (40-74); Platelet Count 266 bil/L (150-400)
[2016-11-03] MEDS: 0.9% Sodium Chloride 1,000 ML IV SCH ×4 (01:29→20:51)
[2016-11-03 01:47] LABS: INR 1.01 ratio
[2016-11-03 02:59] LABS: Magnesium 1.5 mg/dL (1.6-2.6); Phosphorus 4.3 mg/dL (2.5-4.9)
[2016-11-03 04:39] LABS: APPEARANCE,URINE CLEAR (CLEAR,HAZY); COLOR,URINE STRAW (YELLOW); OCCULT BLOOD,URINE NEGATIVE (NEGATIVE); UROBILINOGEN,URINE NORMAL (NORMAL)
--- NOTE | 2016-11-03 06:12 | NUR ---
Activity/Jevity/tele Assumed care for patient at 0230. Pt denies general pain, chest pain/pressure and shortness of breath. pt able to ambulate I in room with a steady gait while wearing non slip socks for safety. Jevity 1.5 @ 35ml/hr. RN to increase by 10ml q4hrs as tolerated to reach the goal of 75ml/hr. Denies nausea and vomiting at this time. Tele: SR HR 60 with rare PVCs per process engineering technician. Care ongoing.
[2016-11-03] MEDS: Fluticasone 100 mCg Inhaler INHALATION SCH ×2 (07:47→19:42)
[2016-11-03] MEDS: Fluconazole Inj 200 MG in IV Premix 1 EACH IV SCH (07:47)
[2016-11-03] MEDS: buPROPion SR 150 mg ER12 Tablet PO SCH ×3 (07:48→19:41)
[2016-11-03] MEDS: fentaNYL-PF 50 mCg/mL 2 mL Inj IV PRN ×3 (10:49→23:35)
[2016-11-03] MEDS: Ondansetron 2 mg/mL 2 mL Inj IVPUSH PRN (10:49)
--- NOTE | 2016-11-03 12:45 | PCM.PNMED ---
Subjective Date of Service Nov 03, 2016 Subjective Patient did well overnight with reproduction of his nausea and vomiting. He was drinking GoLYTELY has had multiple bowel movements. He has been tolerating his tube feeds well without any additional emesis. Denies chest pain, shortness breath, abdominal pain, or review of systems. Currently not back to his baseline creatinine. Postvoid residuals to be ordered. Exam Vital Signs Vital Sign - Last Date Time Temp Pulse Resp B/P Pulse Ox O2 Delivery O2 Flow Rate FiO2 11/03/16 10:13 70 11/03/16 07:52 36.7 16 131/66 95 Room Air Intake and Output 11/02/16 11/02/16 11/03/16 Cumulative From/Thru 15:00 23:00 07:00 11/01/16 20:28 - 11/03/16 06:12 Intake Total 2042 ml 1200 ml 4824 ml Output Total 700 ml 300 ml 1675 ml Balance 1342 ml 900 ml 3149 ml Intake Oral 400 ml 1200 ml 1940 ml IV Total 1642 ml 2884 ml Output Urine Total 700 ml 300 ml 1625 ml Emesis 50 ml # Bowel Movements 5 5 Exam Gen: A/O x3 in no acute distress CV: RRR, no murmurs rubs or gallops Resp: Lungs CTA BL, positive for wheezing Abd: PEG tube in place without erythema of purulence, otherwise abdomen is benign with no tenderness, positive bowel sounds Extr: No edema, 4/5 strength in extremities Neuro: CN 2-12 grossly intact, no focal neurologic deficit Psych: Normal mood and affect IVs and Medications Medications Reviewed: Medications were reviewed in detail Lab and Diagnostics Result Diagram: 11/03/16 0125 11/03/16 0216 X-Rays, CTs and MRIs X-RAY ABDOMEN, ONE VIEW IMPRESSION: No evidence of small bowel obstruction. Dictated by: Viji Whitfield MD, PhD on 11/02/2016 at 9:04 Approved by: Viji Whitfield MD, PhD on 11/02/2016 at 9:06 . 12-lead ECG EKG sinus rhythm with rate of 80 and no axis deviation. QTC 431 Assessment & Plan This is a 56 year old male with PEG tube placement due to stage IV hypopharynx SCC who presents with nausea and vomiting after PEG tube feedings at reduced rate . He was likely very dehydrated upon presentation managed with fluid resuscitation. Patient is quite constipated which may be the initiating factor in his clinical sequelae, constipation leading to nausea and vomiting which lead to fluid depletion and subsequent pre-renal FRANTZ with underlying Cisplatin induced CKD. Acute on chronic kidney injury, present on admission, ongoing: -Acute prerenal azotemia on chronic kidney injury from cisplatin -BUN 74 and creatinine 3.52 on admit. On 10/25/2016 BUN was 54 and creatinine 2.73 -Normal saline at 100 mL per hour Hyperkalemia likely secondary to replacement and worsening renal injury, resolved -Potassium on admit is 5.5. Patient was previously treated at our hospital due to elevated potassium and EKG changes. At that time he was given Kayexalate and calcium gluconate. -Constipation likely contributing to this from continual reabsorption of K -No concerning abnormalities on EKG. -Start Kayexalate Acute on chronic nausea and vomiting, present on admission, resolved -Likely secondary to constipation; resolving with hydration and Compazine -Some blood present in the vomit suggestive of Nakita Ewing but H&H stable today at 7.3 -Hold anti-coagulation until tomorrow -Continue Compazine -Normal saline at 100 mm per hour -Clear liquid diet ordered. 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 -Pain management: Fentanyl and hydrocodone/acetaminophen. -Recommend follow-up with oncology to discuss plans for future care Oral candidiasis, present on admission, ongoing: -Patient declines nystatin swish and swallow as he states it makes him nauseous. -He was previously treated with Fluconazole. -Fluconazole 200mg IV daily added. Normocytic anemia secondary to chemotherapy -Hemoglobin 8.7. MCV 97. on presentation -Continue to monitor. Constipation, present on admission, chronic: -Miralax added. -AP film of the abdomen obtained, negative for SBO -GoLytely initiated to encourage bowel catharsis -Consider Intestinal opiate antagonist if this persists Cisplatin-induced acute renal injury -Continue to monitor. Cisplatin-induced hearing loss -Continue to monitor. COPD -Continue home inhalers Disposition: Discharge likely tomorrow as patient returned to baseline and states he feels at baseline. Would have been discharged today except for the hyperkalemia. Recommend follow oncology and possible palliative medicine for future goals of care as he has been in the hospital 3 times in the last month Pain Evaluation: Adequate Pain Control VTE Prophylaxis: Sub-Q Heparin (Unfractionated) Resuscitation Status: CPR: Attempt Resuscitation Attending Statement The patient was seen and examined together with Dr. Reynoso on 11/03/2016 and I agree with the history, exam and plan as outlined in the note above. . Jeferson Reynoso DO Nov 03, 2016 12:45 Ray Carcamo MD Nov 04, 2016 09:15
[2016-11-03] MEDS ORDERED: Magnesium Sulf 4 Gm/100 mL H2O 4 GM in IV Premix 1 EACH IV ONE (14:55)
--- NOTE | 2016-11-03 15:03 | PCM.PNNEPH ---
Subjective Date of Service Nov 03, 2016 Subjective He is feeling better, feeding tube started without c/o nausea and vomiting. Golytely given yesterday, he has had multiple BMs. Kidney function continues to improve with hydration. K 5.4, Kayexalate given by primary team. Exam Vital Signs Vital Sign - Last Date Time Temp Pulse Resp B/P Pulse Ox O2 Delivery O2 Flow Rate FiO2 11/03/16 12:45 36.6 60 18 152/74 98 Room Air Intake and Output 11/02/16 11/02/16 11/03/16 Cumulative From/Thru 15:00 23:00 07:00 11/01/16 20:28 - 11/03/16 06:12 Intake Total 2042 ml 1200 ml 4824 ml Output Total 700 ml 300 ml 1675 ml Balance 1342 ml 900 ml 3149 ml Intake Oral 400 ml 1200 ml 1940 ml IV Total 1642 ml 2884 ml Output Urine Total 700 ml 300 ml 1625 ml Emesis 50 ml # Bowel Movements 5 5 Exam General appearance: Awake, alert, oriented x3. In on acute distress. HEENT: Mild pallor. No jaundice. No JVD. No lymphadenopathy. No thyroid enlargement. Dry mucous membranes. Poor skin turgor noted. Hyperpigmentation noted on the neck. Heart: Regular rhythm. Normal S1, S2. No murmurs, rubs or gallops. Lungs: Clear to auscultation bilaterally. No wheezing. No rhonchi. Decreased breath sounds at bases. Abdomen: Soft, active bowel sounds. Nontender. Nondistended. No hepatosplenomegaly. PEG tube in place. Extremities: No edema, cyanosis or clubbing of fingers. Skin: No rashes. No excoriation. Poor skin turgor noted. Lab and Diagnostics Result Diagram: 11/03/16 0125 11/03/16 0216 X-Rays, CTs and MRIs X-RAY ABDOMEN, ONE VIEW IMPRESSION: No evidence of small bowel obstruction. Dictated by: Viji Whitfield MD, PhD on 11/02/2016 at 9:04 Approved by: Viji Whitfield MD, PhD on 11/02/2016 at 9:06 . 12-lead ECG EKG sinus rhythm with rate of 80 and no axis deviation. QTC 431 Plan Impression ASSESSMENT: 1. Acute kidney injury with underlying disease of cisplatin induced acute kidney injury. - now with severe intravascular volume depletion. - possible a component of ATN due to prolonged prerenal. 2. Hyperkalemia secondary to renal insufficiency, constipation, poor renal blood flow. Improved. 3. Hypercalcemia secondary to intravascular volume depletion. Resolved. 4. Nausea, vomiting and possible hematemesis. resolved. 5. Stage IV hypopharynx squamous cell carcinoma status post chemoradiation. 6. Failure to thrive status post PEG tube placement. 7. Hypomagnesemia. Plan: Continue IVF, repeat BMP in am. Avoid nephrotoxins. MgSO4 4 gm IVPB. Dandre Addison MD Nov 03, 2016 15:03
--- NOTE | 2016-11-03 17:15 | NUR ---
TF/Tele/Activity Jevity 1.5 @ 55ml/hr, 40ml water flushes Q4h. RN to increase by 10ml q4hrs as tolerated to reach the goal of 75ml/hr. Denies nausea and vomiting at this time. Tele: SR HR 60s-80s without ectopy, per air sampling and monitoring. Pt up independently to bathroom, gait steady, non-skid socks on for safety. Pt uses call light to make needs known. IV fentanyl administered, per pt request, x1 for throat pain; pt reported adequate relief.
[2016-11-03] MEDS: 0.9% Sodium Chloride 250 ML IV SCH (17:57)
--- NOTE | 2016-11-03 21:50 | NUR ---
TF/RESIDUAL/ACTIVITY Pt @ goal rate of 75ml/hr of Jevity 1.5, no residuals noted. Pt denies N/V. Pt independent in room, denies SOB, VSS, no other issues noted at this time.
[2016-11-04] VITALS (13 sets, daily range): BP systolic 127–172; BP diastolic 66–88; PULSE 57–76; RESP 16–21; O2SAT 96–99
--- NOTE | 2016-11-04 03:26 | NUR ---
TRANSFER Pt transferred to 1029, report given to Hilary Duran RN, pt transferred in wheelchair with all belongings.
[2016-11-04] MEDS: fentaNYL-PF 50 mCg/mL 2 mL Inj IV PRN ×4 (03:34→23:36)
[2016-11-04] MEDS: 0.9% Sodium Chloride 1,000 ML IV SCH ×2 (03:39→16:55)
--- NOTE | 2016-11-04 05:13 | NUR ---
Transfer/pain Pt transferred from [facility] to [facility] Rm 1029, Alert and oriented, independent and steady on feet. Pt complained of neck pain and was given IV Fentanyl 50 mcg per eMAR. Tube feeding continues at 75 ml/hr. Pt denies nausea at this time. Pt now sleeping.
[2016-11-04 06:09] LABS: BASOPHILS % (AUTO) 0.3 % (0-3); EOSINOPHILS % (AUTO) 1.3 % (0-5); MONOCYTES % (AUTO) 12.5 % (4-12); Mean Corpuscular Hemoglobin 32.5 pg (27.0-35.0); Mean Corpuscular Volume 96.1 fL (81-100); NEUTROPHILS % (AUTO) 64.9 % (40-74); Platelet Count 222 bil/L (150-400)
--- NOTE | 2016-11-04 07:03 | NUR ---
Critical H & H Pt's hemoglobin this a.m. is 6.7 and hematocrit is 19.8. Cook page sent to hospitalist with this information. Awaiting response.
--- NOTE | 2016-11-04 08:05 | PCM.PNMED ---
Subjective Date of Service Nov 04, 2016 Subjective No new pro blems overnight. Hb < 20 today, no further bleeding noted since admission. Creatinine better. Nausea and vomiting resolved. Exam Vital Signs Vital Sign - Last Date Time Temp Pulse Resp B/P Pulse Ox O2 Delivery O2 Flow Rate FiO2 11/04/16 05:37 36.6 68 16 127/66 96 Room Air Intake and Output 11/03/16 11/03/16 11/04/16 Cumulative From/Thru 15:00 23:00 07:00 11/01/16 20:28 - 11/04/16 05:38 Intake Total 5158 ml 2999 ml 76354 ml Output Total 1975 ml 2350 ml 6000 ml Balance 3183 ml 649 ml 6981 ml Intake Oral 825 ml 50 ml 2815 ml IV Total 3186 ml 1950 ml 8020 ml Tube Feeding 722 ml 791 ml 1513 ml Tube Irrigant 425 ml 208 ml 633 ml Output Urine Total 1975 ml 2350 ml 5950 ml Emesis 50 ml # Bowel Movements 0 5 Exam Skin; clear with rash Eyes; rajni eom intact HENT; adequate hydration, no active lessions CV; no murmur or gallop Resp; clear anteriorly GI; soft non acute benign Neuro; 2-12 intact, no focal neuro deficits Lab and Diagnostics Result Diagram: 11/04/1652711/04/16527 X-Rays, CTs and MRIs X-RAY ABDOMEN, ONE VIEW IMPRESSION: No evidence of small bowel obstruction. Dictated by: Viji Whitfield MD, PhD on 11/02/2016 at 9:04 Approved by: Viji Whitfield MD, PhD on 11/02/2016 at 9:06 . 12-lead ECG EKG sinus rhythm with rate of 80 and no axis deviation. QTC 431 Assessment & Plan This is a 56 year old male with PEG tube placement due to stage IV hypopharynx SCC who presents with nausea and vomiting after PEG tube feedings at reduced rate . He was likely very dehydrated upon presentation managed with fluid resuscitation. Patient is quite constipated which may be the initiating factor in his clinical sequelae, constipation leading to nausea and vomiting which lead to fluid depletion and subsequent pre-renal FRANTZ with underlying Cisplatin induced CKD. Acute on chronic kidney injury, present on admission, improving: -Acute prerenal azotemia on chronic kidney injury from cisplatin -BUN 74 and creatinine 3.52 on admit, today down to 2.19 -reduce Normal saline at 100 mL per hour Hyperkalemia likely secondary to replacement and worsening renal injury, resolved -Potassium on admit is 5.5. Patient was previously treated at our hospital due to elevated potassium and EKG changes. At that time he was given Kayexalate and calcium gluconate. 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 -Pain management: IV Fentanyl and hydrocodone/acetaminophen PO. -Recommend follow-up with oncology to discuss plans for future care Oral candidiasis, present on admission, ongoing: -Patient declines nystatin swish and swallow as he states it makes him nauseous. -He was previously treated with Fluconazole. -Fluconazole 200mg IV daily added. Normocytic anemia secondary to chemotherapy, poa, active -Hemoglobin 8.7. MCV 97. on presentation, now Hb 6.7 -2 units packed red cells today Constipation, present on admission, chronic: -Miralax added. -AP film of the abdomen obtained, negative for SBO -GoLytely initiated to encourage bowel catharsis -Consider Intestinal opiate antagonist if this persists Cisplatin-induced acute renal injury -Continue to monitor. Cisplatin-induced hearing loss -Continue to monitor. COPD -Continue home inhalers Disposition: Discharge likely tomorrow as patient returned to baseline and states he feels at baseline. Would have been discharged today except for the hyperkalemia. Recommend follow oncology and possible palliative medicine for future goals of care as he has been in the hospital 3 times in the last month VTE Prophylaxis: Sub-Q Heparin (Unfractionated) Resuscitation Status: CPR: Attempt Resuscitation Suman Castillo MD Nov 04, 2016 08:05
[2016-11-04] MEDS ORDERED: 0.9% Sodium Chloride 250 ML IV PRN (08:10)
[2016-11-04] MEDS: buPROPion SR 150 mg ER12 Tablet PO SCH ×2 (08:30→20:30)
[2016-11-04] MEDS: Fluconazole Inj 200 MG in IV Premix 1 EACH IV SCH (08:40)
[2016-11-04] MEDS: Fluticasone 100 mCg Inhaler INHALATION SCH ×2 (08:45→20:32)
[2016-11-04] MEDS: Ondansetron 2 mg/mL 2 mL Inj IVPUSH PRN ×3 (10:44→23:36)
--- NOTE | 2016-11-04 13:44 | NUR ---
NUTRITION FOLLOW UP: ASSESS:56 YO male with past medical history significant for head and neck cancer (stage IV hypopharynx squamous cell carcinoma), status post chemotherapy and radiation with PEG tube placement, followed by Dr. Jurado, presents with nausea and vomiting. MD notes indicate n/v likely related to constipation, dehydration, now improving s/p 5BM yesterday. Tube feeding started, running at goal with no residuals noted. Nephrology consult ordered related to his acute on chronic Cisplatin renal failure. He is severely dehydrated and has oral nadia. PMHx:Stage IV hypopharynx squamous cell carcinoma, status post chemoradiation, COPD, cluster headaches, Cisplatin induced renal failure and hearing loss, smoking, ETOH, pneumothorax. DIET:Clear liquid.Refusal PO LABS: Reviewed. BUN 38, Cr 2.19,Alb 3.2 MEDICATIONS: Reviewed. Compazine, MiraLax. TUBE FEEDING:Jevity 1.5 at goal rate 75 ml/hr. Enteral feeding at goal will provide 2587 kcal, 110 g protein, meeting 100% nutrient needs. Flush dose 40 mL H2O every 4 hr. In the event IVF discontinued, recommend flush dose 135 mL every 3 hr. to provide additional 1080 mL fluid. NUTRITION FOCUSED PHYSICAL ASSESSMENT: GI symptoms / stool: 5 BM 6/4Braden: 19. Skin Integrity: No issues reported. ANTHROPOMETRICS: Current Wt: 79.7 kgBMI: 21.4 kg/m2. Weight loss since previous discharge: 1.3 kg Weight loss: Approx. 20% x 6 months = severe malnutrition. IBW: 91.81 kg (85% IBW) UBW: 96 kg. ESTIMATED NEEDS (SEVERE MALNUTRITION, CANCER CACHEXIA): Calories: 2352 - 2744 kcal (30 - 35 kcal / kg BW) Protein: 118 - 157 g protein (1.5 - 2.0 g/ kg BW) Fluid: Approx. 2352 mL (30 ml / kg BW) NUTRITION DIAGNOSIS: 1)Severe malnutrition related to altered GI function, cancer cachexia, as evidenced by approx. 20% weight loss x 6 months, ongoing nausea, vomiting, dehydration---PERSISTS. Tube feeding initiated 2)Altered GI function related to significant constipation, as evidenced by requirement for enema last week, passing hard, "pebble-like" stool---IMPROVED. INTERVENTION: 1) Will add clear liquid supplement to trays. 2) Continue tube feeding per orders. MONITOR/EVALUATE: Enteral feeding tolerance, diet tolerance, PO intake, labs, GI/nutrition status. Follow up per high nutrition risk guidelines.
--- NOTE | 2016-11-04 13:47 | PCM.PNNEPH ---
Subjective Date of Service Nov 04, 2016 Subjective Mr. Jung is a 56-year-old white male who was admitted to [facility] for acute dehydration from vomiting and unable to take any fluids in either orally or via PEG tube. He has a history of head and neck cancer and is undergoing both chemotherapy with cisplatin and radiation therapy. He was admitted for acute kidney injury secondary to GI losses from vomiting and unable to tolerate PEG tube feedings. Since that time he states that he has been feeling better and was considerably less nausea and is tolerating small amounts of tube feedings and is responding to IV hydration. This morning his sodium is 140, potassium 4.6, chloride 103, bicarbonate 26, BUN and creatinine were 38 and 2.19 respectively. This is considerably better from admission. Exam Vital Signs Vital Sign - Last Date Time Temp Pulse Resp B/P Pulse Ox O2 Delivery O2 Flow Rate FiO2 11/04/16 13:29 36.6 59 16 165/80 11/04/16 09:21 98 Room Air Intake and Output 11/03/16 11/03/16 11/04/16 Cumulative From/Thru 15:00 23:00 07:00 11/01/16 20:28 - 11/04/16 05:38 Intake Total 5158 ml 2999 ml 67549 ml Output Total 1975 ml 2350 ml 6000 ml Balance 3183 ml 649 ml 6981 ml Intake Oral 825 ml 50 ml 2815 ml IV Total 3186 ml 1950 ml 8020 ml Tube Feeding 722 ml 791 ml 1513 ml Tube Irrigant 425 ml 208 ml 633 ml Output Urine Total 1975 ml 2350 ml 5950 ml Emesis 50 ml # Bowel Movements 0 5 Exam HEENT examination is remarkable for markedly pale sclera. There is some significant hyperpigmentation throughout his neck and mantle area from radiation therapy. There is no jugular venous distention noted. Lungs were clear to auscultation. Heart is regular and rhythmical with a soft systolic murmur. Abdomen is soft without any tenderness or rebound guarding masses or hepatosplenomegaly. Extremities do not show any evidence of any clubbing cyanosis or edema and skin turgor is good. Lab and Diagnostics Result Diagram: 11/04/1652711/04/16527 X-Rays, CTs and MRIs X-RAY ABDOMEN, ONE VIEW IMPRESSION: No evidence of small bowel obstruction. Dictated by: Viji Whitfield MD, PhD on 11/02/2016 at 9:04 Approved by: Viji Whitfield MD, PhD on 11/02/2016 at 9:06 . 12-lead ECG EKG sinus rhythm with rate of 80 and no axis deviation. QTC 431 Plan Impression Impression #1 acute kidney injury secondary to dehydration which has resolved # 2 anemia which is multifactorial Recommendations #1 I agree with giving him 2 units of blood and/or restarting his PEG feedings. Continue to closely monitor his intake, output, and lab values. Jh Godwin DO Nov 04, 2016 13:47
[2016-11-04] MEDS: 0.9% Sodium Chloride 250 ML IV SCH (14:16)
[2016-11-04] MEDS: Polyethylene Glycol (PEG) 17 Gm Powder PO PRN (14:33)
--- NOTE | 2016-11-04 17:16 | NUR ---
Transfusion / GI Pt received 2 units of packed RBCs on day shift. No complications. Pt reports he is feeling better. Oxygen saturation on room air is 98%. Pt has not had a BM today and is concerned about constipation from the pain medication. Administered Miralax mixed in water. Pt tolerated this well, and continues to take ice chips without problem.
[2016-11-05] VITALS (9 sets, daily range): BP systolic 125–158; BP diastolic 51–76; PULSE 53–69; RESP 16–18; O2SAT 94–100
--- NOTE | 2016-11-05 01:42 | NUR ---
Activity/Pain Paged MD to order post blood transfusion H/H labs and results were 8.9/25.9. Pt reporting throat pain 5/10 at bedtime and took Zofran 4mg IV (as requested) before being given IV Fentanyl 50 mcg per eMAR. New bottle of Tube feeding hung and continues at 75 ml/hr. No residual when checked. Pt denies nausea at this time.
[2016-11-05] MEDS: 0.9% Sodium Chloride 1,000 ML IV SCH ×3 (02:49→15:54)
[2016-11-05 05:12] LABS: BASOPHILS % (AUTO) 0.5 % (0-3); EOSINOPHILS % (AUTO) 1.7 % (0-5); MONOCYTES % (AUTO) 11.6 % (4-12); Mean Corpuscular Hemoglobin 31.7 pg (27.0-35.0); Mean Corpuscular Volume 93.7 fL (81-100); NEUTROPHILS % (AUTO) 67.7 % (40-74); Platelet Count 221 bil/L (150-400)
[2016-11-05] MEDS: buPROPion SR 150 mg ER12 Tablet PO SCH ×2 (08:30→20:30)
[2016-11-05] MEDS: Fluticasone 100 mCg Inhaler INHALATION SCH ×2 (08:39→19:54)
[2016-11-05] MEDS: fentaNYL-PF 50 mCg/mL 2 mL Inj IV PRN ×3 (08:56→23:49)
[2016-11-05] MEDS: Ondansetron 2 mg/mL 2 mL Inj IVPUSH PRN ×3 (08:56→23:48)
[2016-11-05] MEDS: Fluconazole Inj 200 MG in IV Premix 1 EACH IV SCH (09:02)
[2016-11-05] MEDS: Polyethylene Glycol (PEG) 17 Gm Powder PO PRN ×2 (11:44→23:47)
[2016-11-05] MEDS: 0.9% Sodium Chloride 250 ML IV SCH (13:19)
--- NOTE | 2016-11-05 13:50 | PCM.PNNEPH ---
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 No overnight events. Today, patient denies any new complaints. No nausea, vomiting, fever, or chills. Nor any pain. BP maintaining 130's/70's with HR 56. I/O seem to be robust, 5.8/4.2L via urinal in the last 24hrs. Creatinine 1.9, down from initial 3.8. H/H /.6, stabilized s/p 2 pRBC transfusion yesterday. Exam Vital Signs Vital Sign - Last Date Time Temp Pulse Resp B/P Pulse Ox O2 Delivery O2 Flow Rate FiO2 11/05/16 13:08 36.8 63 16 125/72 98 Room Air Intake and Output 11/04/16 11/04/16 11/05/16 Cumulative From/Thru 15:00 23:00 07:00 11/01/16 20:28 - 11/05/16 06:13 Intake Total 1100 ml 1691 ml 3230 ml 96549 ml Output Total 1900 ml 1850 ml 9750 ml Balance 1100 ml -209 ml 1380 ml 9252 ml Intake Oral 620 ml 700 ml 4135 ml IV Total 1100 ml 521 ml 1170 ml 66787 ml Tube Feeding 550 ml 1120 ml 3183 ml Tube Irrigant 240 ml 873 ml Output Urine Total 1900 ml 1850 ml 9700 ml Emesis 50 ml # Bowel Movements 0 5 Exam Gen: Lying comfortably at 30degree head tilt HEENT: PERRLA, Anicteric sclerae, Neck: supple, no JVD, Cardio: Regular rate and rhythm with no murmurs, rubs, or gallops appreciated Pulm: b/l air sound, no crackles, wheezes, or rhonchi. Normal respiratory effort with no use of accessory muscles. Abd: positive bowel tone. Soft, nontender, nondistended. Extremities: No clubbing, cyanosis, edema, or lymphadenopathy appreciated. Skin: Normal temperature and texture; normal skin turgor, no rash, Neuro: moving equally on 4 limbs. Psyc: Normal mood and affect. AoX3 Lab and Diagnostics Result Diagram: 11/05/16 0500 11/05/16 0500 X-Rays, CTs and MRIs X-RAY ABDOMEN, ONE VIEW IMPRESSION: No evidence of small bowel obstruction. Dictated by: Viji Whitfield MD, PhD on 11/02/2016 at 9:04 Approved by: Viji Whitfield MD, PhD on 11/02/2016 at 9:06 . 12-lead ECG EKG sinus rhythm with rate of 80 and no axis deviation. 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 Jh Godwin DO 11/05/16 1449: Exam Lab and Diagnostics Result Diagram: 11/05/16 0500 11/05/16 0500 Plan Plan: Patient is continuing to tolerate fluids and we have cut back on the IV fluid. I would like to continue IV fluid at 50 an hour and see how his blood work just tomorrow. Otherwise I have seen and examined the patient along withDr. Ford I agree with findings and the plan in his note. Isauro Owen DO Nov 05, 2016 13:50 Jh Godwin DO Nov 05, 2016 14:49
--- NOTE | 2016-11-05 14:02 | PCM.PNMED ---
Subjective Date of Service Nov 05, 2016 Subjective No problems overnight. Tolerating tube feeds, on IV fluids, pain under control. Discussed with Dr. Godwin, nephrology service, he would like to keep patient overnight to continue with the IV hydration. Exam Vital Signs Vital Sign - Last Date Time Temp Pulse Resp B/P Pulse Ox O2 Delivery O2 Flow Rate FiO2 11/05/16 13:08 36.8 63 16 125/72 98 Room Air Intake and Output 11/04/16 11/04/16 11/05/16 Cumulative From/Thru 15:00 23:00 07:00 11/01/16 20:28 - 11/05/16 06:13 Intake Total 1100 ml 1691 ml 3230 ml 58439 ml Output Total 1900 ml 1850 ml 9750 ml Balance 1100 ml -209 ml 1380 ml 9252 ml Intake Oral 620 ml 700 ml 4135 ml IV Total 1100 ml 521 ml 1170 ml 21414 ml Tube Feeding 550 ml 1120 ml 3183 ml Tube Irrigant 240 ml 873 ml Output Urine Total 1900 ml 1850 ml 9700 ml Emesis 50 ml # Bowel Movements 0 5 Exam Skin; clear with rash Eyes; rajni eom intact HENT; adequate hydration, no active lessions to suggest nadia at this time CV; no murmur or gallop, no edema Resp; clear anteriorly GI; soft non acute benign Neuro; 2-12 intact, no focal neuro deficits Lab and Diagnostics Result Diagram: 11/05/16 0500 11/05/16 0500 X-Rays, CTs and MRIs X-RAY ABDOMEN, ONE VIEW IMPRESSION: No evidence of small bowel obstruction. Dictated by: Viji Whitfield MD, PhD on 11/02/2016 at 9:04 Approved by: Viji Whitfield MD, PhD on 11/02/2016 at 9:06 . 12-lead ECG EKG sinus rhythm with rate of 80 and no axis deviation. QTC 431 Assessment & Plan This is a 56 year old male with PEG tube placement due to stage IV hypopharynx SCC who presents with nausea and vomiting after PEG tube feedings at reduced rate . He was likely very dehydrated upon presentation managed with fluid resuscitation. Patient is quite constipated which may be the initiating factor in his clinical sequelae, constipation leading to nausea and vomiting which lead to fluid depletion and subsequent pre-renal FRANTZ with underlying Cisplatin induced CKD. Acute on chronic kidney injury, present on admission, improving: -Acute prerenal azotemia on chronic kidney injury from cisplatin -BUN 74 and creatinine 3.52 on admit, today down to 1.9 -per nephrology continue with IV hydration with NS at 50cc/hour with tube feeding, repeat bmp in am Hyperkalemia likely secondary to replacement and worsening renal injury, resolved -Potassium on admit is 5.5. Patient was previously treated at our hospital due to elevated potassium and EKG changes. At that time he was given Kayexalate and calcium gluconate. 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 -Pain management: IV Fentanyl and hydrocodone/acetaminophen PO. -Recommend follow-up with oncology to discuss plans for future care Oral candidiasis, present on admission, ongoing: -Patient declines nystatin swish and swallow as he states it makes him nauseous. -He was previously treated with Fluconazole. -Fluconazole 200mg IV daily, probably stop tomorrow Normocytic anemia secondary to chemotherapy, poa, active -Hemoglobin 8.7. MCV 97. on presentation, now Hb 6.7 -2 units packed red cells today Constipation, present on admission, chronic: -Miralax added. -AP film of the abdomen obtained, negative for SBO -GoLytely initiated to encourage bowel catharsis -Consider Intestinal opiate antagonist if this persists Cisplatin-induced acute renal injury -Continue to monitor. Cisplatin-induced hearing loss -Continue to monitor. COPD -Continue home inhalers Disposition: Discharge likely tomorrow as patient returned to baseline and states he feels at baseline. Would have been discharged today except for the hyperkalemia. Recommend follow oncology and possible palliative medicine for future goals of care as he has been in the hospital 3 times in the last month VTE Prophylaxis: Sub-Q Heparin (Unfractionated) Resuscitation Status: CPR: Attempt Resuscitation Suman Castillo MD Nov 05, 2016 14:02
--- NOTE | 2016-11-05 16:16 | NUR ---
Social Work: Readiness for Discharge D: Per EMR review, pt is a 56 year old male admitted for Nausea, Vomiting, Dehydration. Pt is not medically ready for discharge, anticipate tomorrow per Nephrology. Pt lives at home with his in [place]. Pt is I with ambulation. NIDHI spoke with Vernell, pharmacist at at [facility], regarding pt's discharge plan and resume tube feed orders. Vernell is agreeable to pt's discharge home with resume [facility] tube feed services. Access has been provided. NIDHI spoke with MD regarding HH, MD feels that HH is not medically indicated at this time. Pt to discharge home with to transport via POV and resume tube feeds via [facility]. SW will continue to follow. A: Pt who is I at baseline with stage IV cancer followed by Dr. Jurado with Oncology. P: Anticipate pt to discharge home with resumed [facility] to manage pt's PEG tube and tube feeds. QUALITY ASSURANCE CONSULTANT to continue to follow. Mariely Huffman, QUALITY ASSURANCE CONSULTANT
--- NOTE | 2016-11-05 18:13 | NUR ---
Tube feed/activity Jevity running at goal; tolerates well; residuals 0. Frequent, steady ambulation in room. Repositions self in bed. at bedside.
--- NOTE | 2016-11-05 19:30 | NUR ---
Deficient knowledge regarding feeding tube management Problem: patient reports he was unaware of need to check residuals at home Intervention: provide additional teaching about need to check residuals, how to check residuals, when and how to adjust flow of feedings Evaluation: patient not interested in additional teaching this evening, would like additional teaching prior to discharge. safety: call light within reach, bed in lowest position. Addendum: 11/05/16 at 2018 by COLUMBA KEYES additional intervention. Care notes regarding care of peg tube provided to patient.
[2016-11-06 00:45] VITALS: BP 163/73; PULSE 57; RESP 18; O2SAT 97
[2016-11-06 04:57] VITALS: PULSE 57; RESP 18; O2SAT 97
[2016-11-06 05:55] VITALS: BP 124/63; PULSE 64; RESP 22; O2SAT 97
[2016-11-06] MEDS: buPROPion SR 150 mg ER12 Tablet PO SCH (08:10)
[2016-11-06] MEDS: Fluticasone 100 mCg Inhaler INHALATION SCH (08:10)
[2016-11-06] MEDS: Fluconazole Inj 200 MG in IV Premix 1 EACH IV SCH (08:13)
[2016-11-06 11:17] VITALS: PULSE 67
--- NOTE | 2016-11-06 12:25 | PCM.PNNEPH ---
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 No new complaints. Patient stable overnight. PEG tube feed at goal, no residual reported. SBP mid 130's, HR mid50's-low60's. I/O seem to be robust, 4.6/4.2L, oral intake was 1.3L. Creatinine 1.9, stable. Exam Vital Signs Vital Sign - Last Date Time Temp Pulse Resp B/P Pulse Ox O2 Delivery O2 Flow Rate FiO2 11/06/16 11:17 67 11/06/16 05:55 36.8 22 124/63 97 Room Air Intake and Output 11/05/16 11/05/16 11/06/16 Cumulative From/Thru 15:00 23:00 07:00 11/01/16 20:28 - 11/06/16 06:43 Intake Total 1394 ml 2272 ml 46878 ml Output Total 1500 ml 2025 ml 75789 ml Balance -106 ml 247 ml 9393 ml Intake Oral 420 ml 700 ml 5255 ml IV Total 974 ml 552 ml 34754 ml Tube Feeding 900 ml 4083 ml Tube Irrigant 120 ml 993 ml Output Urine Total 1500 ml 2025 ml 61232 ml Gastric Drainage Total 0 ml 0 ml Emesis 50 ml # Voids 6 6 # Bowel Movements 0 0 5 Exam Gen: Lying comfortably at 30degree head tilt HEENT: PERRLA, Anicteric sclerae, Neck: supple, no JVD, dark discoloration around the neck 2nd to rad-therapy. Cardio: Regular rate and rhythm with no murmurs, rubs, or gallops appreciated Pulm: b/l air sound, no crackles, wheezes, or rhonchi. Normal respiratory effort with no use of accessory muscles. Abd: positive bowel tone. Soft, nontender, nondistended. Extremities: No clubbing, cyanosis, edema, or lymphadenopathy appreciated. Skin: Normal temperature and texture; normal skin turgor, no rash, Neuro: moving equally on 4 limbs. Psyc: Normal mood and affect. AoX3 IVs and Medications IV Fluids stopped IV NS 50cc/hr Medications Reviewed: Medications were reviewed in detail Lab and Diagnostics Result Diagram: 11/05/16 0500 11/06/16 0500 X-Rays, CTs and MRIs X-RAY ABDOMEN, ONE VIEW IMPRESSION: No evidence of small bowel obstruction. Dictated by: Viji Whitfield MD, PhD on 11/02/2016 at 9:04 Approved by: Viji Whitfield MD, PhD on 11/02/2016 at 9:06 . 12-lead ECG EKG sinus rhythm with rate of 80 and no axis deviation. QTC 431 Plan Impression Impression Problem List # Acute kidney injury secondary to dehydration from poor po intake, nausea/ vomiting(resolved) # Chronic kidney disease 2nd to Cisplatin toxicity, baseline Cr 2.5 # Normocytic Anemia (multifactorial) Plan: Plan: # D/c IV fluids # Patient safe to discharge from nephrology perspective. No need for outpatient follow-up # Abstain from nephrotoxic meds Jh Godwin DO 11/06/16 1526: Exam Lab and Diagnostics Result Diagram: 11/05/16 05011/06/16 050 Plan Plan: Patient was seen and examined and the case thoroughly Discussed with the resident. I agree with the note and therapeutic plan. At this point we will sign off the case. Please notify of any change or if you have any questions. Patient does not need any follow-up with nephrology at this point. Isauro Owen DO Nov 06, 2016 12:25 Jh Godwin DO Nov 06, 2016 15:26
--- NOTE | 2016-11-06 12:25 | NUR ---
Social Work- Discharge Data: EMR reviewed. Pt is on day 5 of hospitalization for N/V Dehydration per H&P. Pt is likely to discharge today, SW awaiting discharge orders. SW received order for HH RN to assist pt with his tube feedings at home. Pt is open with [facility] for self-managed tube feeds. Per RN, there was concern regarding pt's ability to manage tube feeds at home. SW met with pt and at bedside regarding pt's tube feeds at home and pt's management of the feeding. Pt explained that he was confused regarding checking his residuals since he was severely constipated. Pt reports that his PCP was able to explain and educate him regarding balancing laxative use and tube feeds. Pt's tube feeds are running at goal with no residuals. Pt and his feel well supported by PCP. Pt is confident that the training provided while hospitalized is enough for pt to discharge home. Pt is not homebound at this time and pt does not feel that HH is warranted. MD notified. Pt's insurance does not cover additional RN visit from [facility], but pt is agreeable to working with the dietitian and receiving any additional support they are able to provide. T/C to [facility] dietitian Brianna regarding pt's questions and admission. Brianna reports that she calls pt and at home each week to troubleshoot and she will be placing a call to them either today or tomorrow to follow up regarding the residuals. Pt and agreeable to this. Pt to discharge home with [facility] tube feeds and to transport via POV. SW will continue to follow. Assessment: Pt for whom tube feeds is medically necessary. Plan: SW addressed pt's concerns regarding his tube feed residuals, pt feels that he has receiving appropriate teaching through hourly sales staff. [facility] dietitian to follow up by phone with pt to provide additional assistance. SW to fax discharge orders to [facility] when they are placed. Pt to discharge home with [facility] tube feeds and to transport via POV. SW will continue to follow. BRADLEY Cespedes Addendum: 11/06/16 at 1353 by LAWRENCE FAUSTIN SS Pt's discharge orders are active. Pt updated and agreeable to plan that [facility] Dietitian Brianna will be contacting them when they return home. Pt to discharge home with to transport via POV. No additional discharge needs identified. Marieyl Faustin, WALLPAPER SCRAPER
--- NOTE | 2016-11-06 12:57 | PCM.DIMED ---
Discharge Instructions Date of Service Nov 06, 2016 Dates of Hospitalization Nov 01, 2016 at 23:11 Discharge Diagnosis Discharge Diagnosis Acute on chronic kidney injury Hyperkalemia Acute on chronic nausea and vomiting, Stage IV hypopharynx squamous cell carcinoma complicated by dysphasia now requiring tube feedings Oral candidiasis, Normocytic anemia secondary to chemotherapy, Constipation COPD Diet Discharge Diet: Other (continue PEG tube feedings) Activity Discharge Activity: Limited until seen by PCP Call your provider Call your provider for: Other (any poroblems with the PEG tube feedings) Patient Instructions Patient Instructions NUTRITION: -continue PEG tube feeding at home -TUBE FEEDING:Jevity 1.5 at goal rate 75 ml/hr. Enteral feeding at goal will provide 2587 kcal, 110 g protein, meeting 100% nutrient needs. Flush dose 40 mL H2O every 4 hr. In the event IVF discontinued, recommend flush dose 135 mL every 3 hr. to provide additional 1080 mL fluid, Dr Castillo Follow-up with PCP in: 1 week Suman Castillo MD Nov 06, 2016 12:57
--- NOTE | 2016-11-06 13:06 | PCM.DC.MED ---
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 Dictated by: Viji Whitfield MD, PhD on 11/02/2016 at 9:04 Approved by: Viji Whitfield MD, PhD on 11/02/2016 at 9:06 . ECG 12 Lead EKG sinus rhythm with rate of 80 and no axis deviation. QTC 431 Brief History This is a 56-year-old with past medical history significant for head and neck cancer (stage IV hypopharynx squamous cell carcinoma) status post chemotherapy and radiation with PEG tube placement and followed by Dr. Jurado, cisplatin kidney injury, and cisplatin hearing loss who presents today with nausea and vomiting. The patient states that beginning yesterday he began vomiting. At that time he lowered his PEG tube feeds from 100 mL to 25 mL. He continued his feeds today at 25 mL but after the feeds began vomiting. He had 12 episodes of vomitus with mostly dark brown color but some black specks mixed in. He also states he had a episode of some bright red streaks in the vomit while in the emergency department. He states that he has nausea and is not able to control this with Zofran. He also has associated abdominal discomfort in the left lower quadrant but denies any pain. He states that his bowel movements have been occurring every 2 days and describes them as "pebble-like.". He needed an enema about 1 week ago to have a bowel movement. He denies any chest pain or pressure, shortness of breath, diarrhea, fevers, chills. The patient's most recent hospital stay occurred from October 23-2016 at which time he was admitted for hyperkalemia secondary to cisplatin and worsening kidney injury. During that hospital stay he received 1 unit PRBCs due to normocytic anemia. Endoscopy on October [address] Crawford with PEG tube placement. Initial vital signs in the emergency department were temperature 37 Celsius, pulse 66, respiratory rate 21, blood pressure 155/84, satting at 90% on room air. Initial laboratory values were WBC 5.6, hemoglobin 8.7, hematocrit 26.1, and platelets 316. Review of records from past hospital stay shows stability of CBC. Potassium 5.5, BUN 74, creatinine 3.52, glucose 110, calcium 10.3, albumin 4.1. In the emergency department he was provided with pantoprazole 40 mg, 2 boluses of normal saline, Compazine 5 mg, and Dilaudid 1 mg. Patient has improvement in symptoms after these interventions. Hospital Course This is a 56 year old male with PEG tube placement due to stage IV hypopharynx SCC who presents with nausea and vomiting after PEG tube feedings at reduced rate . He was likely very dehydrated upon presentation managed with fluid resuscitation. Patient is quite constipated which may be the initiating factor in his clinical sequelae, constipation leading to nausea and vomiting which lead to fluid depletion and subsequent pre-renal FRANTZ with underlying Cisplatin induced CKD. 1- Acute on chronic kidney injury, present on admission, improving: -Acute prerenal azotemia on chronic kidney injury from cisplatin -BUN 74 and creatinine 3.52 on admit, today down to 1.9 -per nephrology continue with IV hydration with NS at 50cc/hour with tube feeding, repeat bmp in am -DISCHARGE; creatinine down to 1.94 today, follow up with pcp to recheck BMP 2- Hyperkalemia likely secondary to replacement and worsening renal injury, resolved -Potassium on admit is 5.5. Patient was previously treated at our hospital due to elevated potassium and EKG changes. At that time he was given Kayexalate and calcium gluconate. 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 -Pain management: IV Fentanyl and hydrocodone/acetaminophen PO. -Recommend follow-up with oncology to discuss plans for future care 5- Oral candidiasis, present on admission, ongoing: -Patient declines nystatin swish and swallow as he states it makes him nauseous. -He was previously treated with Fluconazole. -Fluconazole 200mg IV daily, -DISCHARGE; recieved several day diflucan, asymptomatic, will discontinue diflucan 6- Normocytic anemia secondary to chemotherapy, poa, active -Hemoglobin 8.7. MCV 97. on presentation, now Hb 6.7 -2 units packed red cells today 7- Constipation, present on admission, chronic: -Miralax added. -AP film of the abdomen obtained, negative for SBO -GoLytely initiated to encourage bowel catharsis -Consider Intestinal opiate antagonist if this persists 8- Cisplatin-induced acute renal injury -Continue to monitor. 9- Cisplatin-induced hearing loss -Continue to monitor. 10- COPD -Continue home inhalers 11- Nutrition -continue PEG tube feeding at home -TUBE FEEDING:Jevity 1.5 at goal rate 75 ml/hr. Enteral feeding at goal will provide 2587 kcal, 110 g protein, meeting 100% nutrient needs. Flush dose 40 mL H2O every 4 hr. In the event IVF discontinued, recommend flush dose 135 mL every 3 hr. to provide additional 1080 mL fluid, Dr Castillo Exam Vital Signs (Last) Date Time Temp Pulse Resp B/P Pulse Ox O2 Delivery O2 Flow Rate FiO2 11/06/16 11:17 67 11/06/16 05:55 36.8 22 124/63 97 Room Air Exam Skin; clear with rash Eyes; rajni eom intact HENT; adequate hydration, no active lessions to suggest nadia at this time CV; no murmur or gallop, no edema Resp; clear anteriorly GI; soft non acute benign Neuro; 2-12 intact, no focal neuro deficits Test 11/01/16 20:44 11/03/16 01:25 11/03/16 02:16 11/03/16 04:20 Lipase 8U/L (13-60) Prothrombin Time 10.8sec (8.1-12.5) Prothromb Time International Ratio 1.01ratio Phosphorus Level 4.3mg/dL (2.5-4.9) Magnesium Level 1.5mg/dL (1.6-2.6) Urine Color Straw (YELLOW) Urine Appearance Clear (CLEAR,HAZY) Urine pH 7.0 (5.0-8.0) Urine Specific [place] 1.008 (1.003-1.035) Urine Protein Negativemg/dL (NEG,TRACE) Urine Glucose (UA) Negativemg/dL (NEGATIVE) Urine Ketones Negativemg/dL (NEGATIVE) Urine Occult Blood Negative (NEGATIVE) Urine Nitrite Negative (NEGATIVE) Urine Bilirubin Negative (NEGATIVE) Urine Urobilinogen Normalmg/dL (NORMAL) Urine Leukocyte Esterase Negative (NEGATIVE) Urine RBC 0-2/hpf (0-2) Urine WBC 0-5/hpf (0-5) Urine Epithelial Cells Occasional/hpf (NONE-MOD) Urine Crystals None seen (NONE SEEN) Urine Bacteria None/hpf (NONE-FEW) Urine Hyaline Casts None/lpf (NONE) Urine Granular Casts None seen (NONE SEEN) Urine Waxy Casts None seen (NONE SEEN) Urine Red Blood Cell Casts None seen (NONE SEEN) Urine White Blood Cell Casts None seen (NONE SEEN) Urine Mucus None seen (None Seen) Urine Trichomonas None seen (NONE SEEN) Urine Yeast None (NONE SEEN) Urine Culture Reflexed Not indicated Test 11/04/16 05:28 11/05/16 05:00 11/06/16 05:00 Total Bilirubin 0.2mg/dL (0.0-1.2) Aspartate Amino Transf (AST/SGOT) 10U/L (0-50) Alanine Aminotransferase (ALT/SGPT) 8U/L (0-44) Alkaline Phosphatase 56U/L (25-150) Total Protein 5.5g/dL (6.4-8.4) Albumin 3.2g/dL (3.4-5.0) White Blood Count 4.1th/mm3 (3.8-10.1) Red Blood Count 2.84mil/mm3 (4.40-5.80) Hemoglobin 9.0g/dL (13.8-17.2) Hematocrit 26.6% (41.0-50.0) Mean Corpuscular Volume 93.7fL (81-100) Mean Corpuscular Hemoglobin 31.7pg (27.0-35.0) Mean Corpuscular Hemoglobin Concent 33.8% (32.0-37.0) Red Cell Distribution Width 17.3% (12.3-15.4) Platelet Count 221bil/L (150-400) Neutrophils (%) (Auto) 67.7% (40-74) Lymphocytes (%) (Auto) 18.3% (14-46) Monocytes (%) (Auto) 11.6% (4-12) Eosinophils (%) (Auto) 1.7% (0-5) Basophils (%) (Auto) 0.5% (0-3) Sodium Level 136mEq/L (134-144) Potassium Level 4.6mEq/L (3.5-5.2) Chloride Level 98mEq/L (97-108) Carbon Dioxide Level 27mmol/L (18-29) Blood Urea Nitrogen 32mg/dL (6-24) Creatinine 1.94mg/dL (0.76-1.27) Estimat Glomerular Filtration Rate 38mL/min (>59) Glucose Level 103mg/dL (60-99) Calcium Level 8.6mg/dL (8.5-10.1) Discharge Medications Discharge Medications Beclomethasone Dipropionate (Qvar) 8.7 Gm Aer.w.adap 1 PUFF INHALATION BID ( Reported) Bupropion ER (Wellbutrin SR) 150 Mg Tablet.er 150 MG PO BID (Reported) Nicotine 7 mg/24 hr Patch (Nicotine 7 mg/24 hr Patch) 1 Each Patch.td24 1 PATCH TRANSDERM DAILY (Reported) Silver Sulfadiazine (Ssd 25GM Pp) 25 Gm Cr 1 APPLIC TOPICAL TID (Reported) As needed Albuterol Sulfate (Ventolin HFA Inhaler) 200 Puff/18 Gm Inhaler 2 PUFF INH Q4 PRN PRN For Wheezing (Reported) Alprazolam (Alprazolam) 0.5 Mg Tablet 0.5 MG PO TID PRN PRN For Anxiety ( Reported) for Anxiety and at Bedtime for sleep Cyproheptadine HCl (Cyproheptadine HCl) 4 Mg Tablet 4 MG PO TID PRN PRN For Eye Irritation (Reported) Lorazepam (Ativan) 0.5 Mg Tablet 0.5 MG PO TID PRN PRN For Nausea (Reported) Ondansetron ODT (Ondansetron ODT) 4 Mg Tab.rapdis 8 MG PO Q4H PRN PRN For Nausea /Vomiting Prescribed by: CIERA DIEGO MD Sumatriptan Succinate (Sumatriptan Succinate) 6 Mg/0.5 Ml Vial 6 MG SQ BID PRN PRN migraine (Reported) oxyCODONE (oxyCODONE) 5 Mg/5 Ml Solution 5 MG PO Q4H PRN PRN For Severe Pain Prescribed by: CIERA DIEGO MD Followup Plan Discharge Diet: Other (continue PEG tube feedings) Discharge Activity: Limited until seen by PCP Follow-up with PCP in: 1 week Time spent 40 minutes time spent discharging this patient home today so far. copies to: Dawson Forman MD; Ana M Jurado MD, D Geoffrey MD Nov 06, 2016 13:06
--- NOTE | 2016-11-06 14:35 | NUR ---
Discharge Pt d/c'd from room 1029 at 1433 home with via private vehicle. Peg tube flushed and disconnected. Port d/c'd from IV therapy. Pt has no items in the safe or in the pharmacy. All discharge teaching and instructions done with pt and . All questions and concerns addressed. All belongings with pt.
--- NOTE | 2016-11-07 07:50 | NUR ---
Late entry for 11/06/16 - financial accountanttie layer Note: Met with patient on [facility] in room 1029. Patient reports he did not receive home teaching for Residual checks with his PEG tube placement. Patient reports the RN can only come out one time per week and he was taught how to do the dressings. I had submitted a prior authorization for Post PEG Placement care on 10/25/2016. In talking with [employer]. They approved [facility] order because it did not require prior auth. According to [employer] [facility] patient does qualify for Home health and [employer] is a company they work with. I gave an update to Dr. Jurado for Home Health care for Peg Placement and response is pending. Patient will be coming to our clinic on Friday for his Dressing change and assessment for his PEG tube while we get Home health set up. Patient states he has been given further teaching from the Hospital Staff regarding PEG tube care. Will continue to follow and provide assistance as needed. Addendum: 11/07/16 at 0758 by JAYME PAIGE RN Above note written by Jayme Paige Rn, OCN financial accountantgps navigation installer
== END 2016-11-06 14:33 | disposition home or self-care (01) | DRG 683 ==
LOC: SED 20:24 → PCC 23:11 → OBSVTOIN 23:11 → OSC 11-04 03:27
PROVIDERS: ADMIT Hospitalist; ATTEND Hospitalist
PROC: 30233N1 Transfusion of Nonautologous Red Blood Cells into Peripheral Vein, Percutaneous Approach (ICD-10-PCS; principal; 2016-11-04)
DX: N17.8 Other acute kidney failure (principal); B37.0 Candidal stomatitis; E87.5 Hyperkalemia; J44.9 Chronic obstructive pulmonary disease, unspecified; D64.81 Anemia due to antineoplastic chemotherapy; C76.0 Malignant neoplasm of head, face and neck; F17.210 Nicotine dependence, cigarettes, uncomplicated; N18.9 Chronic kidney disease, unspecified; R13.10 Dysphagia, unspecified; Z92.21 Personal history of antineoplastic chemotherapy; K59.00 Constipation, unspecified; T45.1X5A Adverse effect of antineoplastic and immunosuppressive drugs, initial encounter; Z92.3 Personal history of irradiation; E83.52 Hypercalcemia; R62.7 Adult failure to thrive; E86.0 Dehydration

== ENCOUNTER 2016-11-12 12:03 | Emergency (ER) | payer OTHER ==
[~2016-11-12] VITALS: Ht 193 cm; Wt 83.6 kg
[~2016-11-12 12:03] MED LIST changes: -BECL8.7A6 INHALATION; -BENZ200C44 PO; -HYDR-4003 PO
[2016-11-12 12:08] VITALS: BP 140/74; PULSE 55; RESP 16; O2SAT 100
--- NOTE | 2016-11-12 12:28 | ED.REPORT ---
HPI-General Illness Date of Service Nov 12, 2016 ED Provider: Dr. Lobo 56 y/o male with a hx of throat cancer (s/p treatment) and COPD presents to the ED complaining of high potassium level, onset today. The pt was sent to the ED by Dr. Ana M Jurado. He denies vomiting, pain or any other symptoms at this time. Nursing Notes Stated Complaint: HIGH POTASSIUM Chief Complaint: General Complaint Nursing Notes Reviewed: Yes Allergies: Coded Allergies: No Known Allergies (Unverified , 11/12/16) Scheduled Beclomethasone Dipropionate (Qvar) 8.7 Gm Aer.w.adap 1 PUFF INHALATION BID Silver Sulfadiazine (Ssd 25GM Pp) 25 Gm Cr 1 APPLIC TOPICAL TID Sodium Polystyrene Sulfonate (Kayexalate) 453.6 Gm Powder 15 ML PO DAILY Scheduled PRN Albuterol Sulfate (Ventolin HFA Inhaler) 200 Puff/18 Gm Inhaler 2 PUFF INH Q4 PRN PRN For Wheezing Alprazolam (Alprazolam) 0.5 Mg Tablet 0.5 MG PO TID PRN PRN For Anxiety for Anxiety and at Bedtime for sleep Cyproheptadine HCl (Cyproheptadine HCl) 4 Mg Tablet 4 MG PO TID PRN PRN For Eye Irritation Lorazepam (Ativan) 0.5 Mg Tablet 0.5 MG PO TID PRN PRN For Nausea Ondansetron ODT (Ondansetron ODT) 4 Mg Tab.rapdis 8 MG PO Q4H PRN PRN For Nausea /Vomiting Oxycodone (Roxicodone) 5 Mg Tablet 5 MG PO Q4H PRN PRN For Pain Sumatriptan Succinate (Sumatriptan Succinate) 6 Mg/0.5 Ml Vial 6 MG SQ BID PRN PRN migraine General Time Seen by MD: 12:27 Chief Complaint Other (hyperkalemia ) Hx Obtained From: Patient Arrived By: Walk-in Sudden in Onset?: Yes Onset Occurred: 9 - 12 hours ago Symptom Duration: Since onset Severity: Current: No pain currently Severity: Maximum: No pain Recent Healthcare: Recent doctor visit Similar Sx Previous: No Past Medical History Past Medical History Notes: Code status: full code Patient admitted October 23-2016 for dysphagia secondary to squamous cell carcinoma, hyperkalemia Past Medical History Head and neck cancer status post chemotherapy and radiation followed by Dr. Jurado (stage IV hypopharynx squamous cell carcinoma) and apparently completed treatment for the carcinoma October 14 COPD Asthma Cluster headaches Cisplatin-induced acute renal injury Cisplatin-induced hearing loss Past Surgical History Inguinal hernia repair Chest tube in 1992 Elbow surgery 1995 Endoscopy September 2016 PEG tube placement Family History Mother of lung cancer at age 65 Smoking History Former Smoker Social History Alcohol Use: Denies alcohol use Drug Use: Denies drug use, THC Other Social History: Good social support, Ambulatory Status Independent Review of Systems Reports: Hyperkalemia; otherwise asymptomatic. Full Review of Systems GI: Denies: Vomiting Musculoskeletal: Denies: Myalgia Complete sys rev & neg: except as marked. Physical Exam Vital Signs Vital Signs Date Time Temp Pulse Resp B/P Pulse Ox O2 Delivery O2 Flow Rate FiO2 11/12/16 13:32 59 12 141/75 100 Room Air 11/12/16 12:08 36.0 55 16 140/74 100 Room Air Initial VS: Reviewed Head / Eyes: Atraumatic, Normocephalic Neck: Supple, Non-tender, Full range of motion Respiratory: Breath sounds normal, Clear to auscultation, No respiratory distress Cardiovascular: Regular rate & rhythm, Heart sounds normal, Intact distal pulses Abdomen / GI: Soft, Non-tender Extremities: Vascular intact, Neuro intact, No swelling, No tenderness Skin: Warm, Dry, No cyanosis Neurologic: Alert, Oriented, Nonfocal General/Constitutional: Awake, Alert, Well appearing, Cooperative Interpretation & Diagnostics Lab Results Interpretation Result Diagram: 11/12/16 1300 11/12/16 1525 Test 11/12/16 13:00 White Blood Count 5.8th/mm3 (3.8-10.1) Red Blood Count 3.29mil/mm3 (4.40-5.80) Hemoglobin 10.5g/dL (13.8-17.2) Hematocrit 31.2% (41.0-50.0) Mean Corpuscular Volume 94.8fL (81-100) Mean Corpuscular Hemoglobin 31.9pg (27.0-35.0) Mean Corpuscular Hemoglobin Concent 33.7% (32.0-37.0) Red Cell Distribution Width 15.6% (12.3-15.4) Platelet Count 241bil/L (150-400) Neutrophils (%) (Auto) 73.8% (40-74) Lymphocytes (%) (Auto) 14.4% (14-46) Monocytes (%) (Auto) 9.2% (4-12) Eosinophils (%) (Auto) 1.9% (0-5) Basophils (%) (Auto) 0.5% (0-3) Sodium Level 128mEq/L (134-144) Chloride Level 93mEq/L (97-108) Carbon Dioxide Level 24mmol/L (18-29) Blood Urea Nitrogen 50mg/dL (6-24) Creatinine 2.12mg/dL (0.76-1.27) Estimat Glomerular Filtration Rate 34mL/min (>59) Glucose Level 108mg/dL (60-99) Calcium Level 9.7mg/dL (8.5-10.1) Total Bilirubin 0.3mg/dL (0.0-1.2) Aspartate Amino Transf (AST/SGOT) 12U/L (0-50) Alanine Aminotransferase (ALT/SGPT) 11U/L (0-44) Alkaline Phosphatase 67U/L (25-150) Total Protein 7.4g/dL (6.4-8.4) Albumin 3.8g/dL (3.4-5.0) Hold Castellanos Top Tube Received (Received) ECG Interpretation ECG Interpretation: Normal sinus rhtyhm. Rate 65. Consider left ventricular hypertrophy. Peaked T waves. ST elevation, consider anterior injury. Time: 12:46 Interpreted by: ED physician Re-Eval/Medical Decision Source of Hx: Old records Time of Eval: 13:20 Patient Status: Condition improved Re-Evaluation/Progress Note: Discussed lab results, diagnosis and plan to admit. Pt understands and agrees with the plan for admission. All questions addressed. Time of Eval: 15:19 Patient Status: Condition improved Re-Evaluation/Progress Note: Rechecked pt. Informed the pt about talking to Dr. Cristina and change in plan to discharge to pt. Pt udnerstands and agrees. All questions answered. Re-Evaluation/Progress Note: Potassium is now normalized we will discharge the patient with Kayexalate 15 mL daily for the next 3 days and close outpatient follow-up tomorrow Consultation #1: Referral / Consult Name: Ana M Jurado MD Call Returned at: 12:30 Seed Cleaning Machine Operator: Will see patient, Agrees with eval, Agrees with plan Note: Dr. Jurado recommends admitting patient for renal insufficiency and kyperkalemia. He will follow up with the patient tomorrow. Consultation #2: Referral / Consult Name: Rico Cristina MD Consulted With: Hospitalist Call Returned at: 15:16 Seed Cleaning Machine Operator: Agrees with eval, Referred to other consult Note: Dr. Cristina recommends checking with Dr. Carrington again to see if the pt can be discharged and followed up with tomorrow. Counseled Regarding: Diagnosis, Lab results, Need for follow-up, When/why to return to ED Discharge & Departure Primary Impression: Hyperkalemia Additional Impression: Renal insufficiency Disposition: Home Discharge Condition All VS Reviewed: Yes Patient Instructions: Hyperkalemia (ED) Additional Instructions: Your potassium level has now normalized. Dr. Jurado recommends that you continue the regular tube feeds tonight but that we add on Kayexalate 15 mL through the G-tube once a day for the next 3 days. Call the office tomorrow morning for follow-up instructions. Referrals: Dawson Forman MD (PCP) Ana M Jurado MD Attestation Portions of this note were transcribed by Fidencio Kaminski. I, , personally performed the history, physical exam and medical decision-making;I reviewed and confirmed the accuracy of the information in the transcribed note. Signed by Juvenal Rivera. 11/12/16 16:07 copies to: Dawson Forman MD; Ana M Jurado MD, Kirk H MD Nov 12, 2016 12:28 Fidencio Kaminski Nov 12, 2016 13:00
[2016-11-12] MEDS ORDERED: Insulin Human REGular-Omnicell 100 Unit/mL IV ONE (12:30)
[2016-11-12] MEDS ORDERED: Calcium Chloride 10% (Gm) 1 Gm/10 mL Inj IVPUSH PRN (12:30)
[2016-11-12 13:12] LABS: BASOPHILS % (AUTO) 0.5 % (0-3); EOSINOPHILS % (AUTO) 1.9 % (0-5); MONOCYTES % (AUTO) 9.2 % (4-12); Mean Corpuscular Hemoglobin 31.9 pg (27.0-35.0); Mean Corpuscular Volume 94.8 fL (81-100); NEUTROPHILS % (AUTO) 73.8 % (40-74); Platelet Count 241 bil/L (150-400)
[2016-11-12] MEDS ORDERED: Calcium GLUCOnate 10% (Gm) 1 Gm/10 mL Inj ONE (13:25)
[2016-11-12 13:32] VITALS: BP 141/75; PULSE 59; RESP 12; O2SAT 100
[2016-11-12] MEDS ORDERED: OXYC-474 PO (14:08)
[2016-11-12 15:04] VITALS: BP 140/60; PULSE 68; RESP 12; O2SAT 100
[2016-11-12] MEDS ORDERED: HepLOK Flush 100 unit/mL 5 mL Inj ONE (16:37)
[2016-11-12] MEDS ORDERED: SODI453. PO (16:39)
== END 2016-11-12 16:50 | disposition home or self-care (01) ==
LOC: SED 12:03 → MPC 14:57 → UNDOADMIN 14:57
DX: E87.5 Hyperkalemia (principal); N28.9 Disorder of kidney and ureter, unspecified; J44.9 Chronic obstructive pulmonary disease, unspecified; J45.909 Unspecified asthma, uncomplicated; Z79.899 Other long term (current) drug therapy; Z87.891 Personal history of nicotine dependence
CPT/HCPCS: 36415; 80053; 82948; 84132; 85025; 93005; 96374; 96375; 96376; 99285; J1642; J1815

== ENCOUNTER 2016-11-14 16:35 | Inpatient (IN) | payer OTHER ==
[~2016-11-14] VITALS: Ht 193 cm; Wt 79.3 kg
[~2016-11-14 16:35] MED LIST changes: -BUPR150T8 PO; -NIC7 TRANSDERM; +OXYC-474 PO; -OXYC5SOL11 PO; +SODI453. PO
--- NOTE | 2016-11-14 16:43 | ED.REPORT ---
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 The pt began vomiting this afternoon and has vomited over 12 times. He denies diarrhea and has not had a bowel movement in the last several days. The pt has recently finished with chemotherapy and has been on tube feedings for one month, but tried eating potato chips by mouth yesterday per the recommendation of his PCP. The pt was seen in the ED two days ago and diagnosed with hyperkalemia. Nursing Notes Stated Complaint: NAUSEA AND VOMITING Nursing Notes Reviewed: Yes Allergies: Coded Allergies: No Known Allergies (Unverified , 11/12/16) Scheduled Beclomethasone Dipropionate (Qvar) 8.7 Gm Aer.w.adap 1 PUFF INHALATION BID Silver Sulfadiazine (Ssd 25GM Pp) 25 Gm Cr 1 APPLIC TOPICAL TID Sodium Polystyrene Sulfonate (Kayexalate) 453.6 Gm Powder 15 ML PO DAILY Scheduled PRN Albuterol Sulfate (Ventolin HFA Inhaler) 200 Puff/18 Gm Inhaler 2 PUFF INH Q4 PRN PRN For Wheezing Alprazolam (Alprazolam) 0.5 Mg Tablet 0.5 MG PO TID PRN PRN For Anxiety for Anxiety and at Bedtime for sleep Cyproheptadine HCl (Cyproheptadine HCl) 4 Mg Tablet 4 MG PO TID PRN PRN For Eye Irritation Lorazepam (Ativan) 0.5 Mg Tablet 0.5 MG PO TID PRN PRN For Nausea Ondansetron ODT (Ondansetron ODT) 4 Mg Tab.rapdis 8 MG PO Q4H PRN PRN For Nausea /Vomiting Oxycodone (Roxicodone) 5 Mg Tablet 5 MG PO Q4H PRN PRN For Pain Sumatriptan Succinate (Sumatriptan Succinate) 6 Mg/0.5 Ml Vial 6 MG SQ BID PRN PRN migraine General Time Seen by MD: 16:43 Chief Complaint Vomiting Hx Obtained From: Patient Arrived By: Walk-in Sudden in Onset?: Yes Onset Occurred: 1 - 4 hours ago Symptom Duration: Since onset Recent Healthcare: Recent doctor visit, Recent hospitalization Similar Sx Previous: Yes Past Medical History Past Medical History Notes: Code status: full code Patient admitted October 23-2016 for dysphagia secondary to squamous cell carcinoma, hyperkalemia Past Medical History Head and neck cancer status post chemotherapy and radiation followed by Dr. Jurado (stage IV hypopharynx squamous cell carcinoma) and apparently completed treatment for the carcinoma October 14 COPD Asthma Cluster headaches Cisplatin-induced acute renal injury Cisplatin-induced hearing loss Past Surgical History Inguinal hernia repair Chest tube in 1992 Elbow surgery 1995 Endoscopy September 2016 PEG tube placement Family History Mother of lung cancer at age 65 Smoking History Former Smoker Social History Alcohol Use: Denies alcohol use Drug Use: Denies drug use, THC Other Social History: Good social support, Ambulatory Status Independent Review of Systems Full Review of Systems Respiratory: Denies: Non-productive cough, Shortness of breath Cardiovascular: Denies: Chest pain GI: Reports: Constipation, Nausea, Vomiting, Denies: Diarrhea Musculoskeletal: Denies: Back pain Skin: Denies Rash Complete sys rev & neg: except as marked. Physical Exam Vital Signs Vital Signs Date Time Temp Pulse Resp B/P Pulse Ox O2 Delivery O2 Flow Rate FiO2 11/14/16 18:26 54 19 181/78 100 Room Air 11/14/16 16:47 36.8 62 16 173/79 100 Room Air Initial VS: Reviewed General/Constitutional: Awake, Alert Appearance / Presentation: Positive: Cachectic, Frail thin actively vomiting clear emesis Head / Eyes: Atraumatic, Normocephalic, PERRL, EOMI ENT: Atraumatic, Airway patent, Mucous membranes moist Neck: Atraumatic, Supple, Full range of motion Respiratory / Chest: Atraumatic, Breath sounds NL, Breath sounds = bilat, No respiratory distress Cardiovascular: Heart rate NL, Regular rhythm, Heart sounds NL Abdomen: Atraumatic, Soft, Non-tender Back: Atraumatic, Full range of motion Upper Extremities Upper Extremity / MS: Atraumatic, Full range of motion Lower Extremity / Pelvis / MS: Atraumatic, Full range of motion Skin: Atraumatic, Color NL, No rash, Warm, Dry Neurologic: Oriented X3, Speech NL, No motor deficits, No sensory deficits Psychiatric: Affect NL, Mood NL Interpretation & Diagnostics Lab Results Interpretation Result Diagram: 11/14/16 1720 11/14/16 1713 Test 11/14/16 17:13 11/14/16 17:20 Prothrombin Time 9.8sec (8.1-12.5) Prothromb Time International Ratio 0.92ratio Sodium Level 130mEq/L (134-144) Potassium Level 6.3mEq/L (3.5-5.2) Chloride Level 93mEq/L (97-108) Carbon Dioxide Level 22mmol/L (18-29) Blood Urea Nitrogen 56mg/dL (6-24) Creatinine 2.22mg/dL (0.76-1.27) Estimat Glomerular Filtration Rate 33mL/min (>59) Glucose Level 113mg/dL (60-99) Calcium Level 9.8mg/dL (8.5-10.1) Magnesium Level 2.1mg/dL (1.6-2.6) Total Bilirubin 0.3mg/dL (0.0-1.2) Aspartate Amino Transf (AST/SGOT) 16U/L (0-50) Alanine Aminotransferase (ALT/SGPT) 13U/L (0-44) Alkaline Phosphatase 68U/L (25-150) Troponin T < 0.010ug/L (0.0-0.011) Total Protein 7.7g/dL (6.4-8.4) Albumin 4.0g/dL (3.4-5.0) White Blood Count 7.7th/mm3 (3.8-10.1) Red Blood Count 3.41mil/mm3 (4.40-5.80) Hemoglobin 10.9g/dL (13.8-17.2) Hematocrit 32.0% (41.0-50.0) Mean Corpuscular Volume 93.8fL (81-100) Mean Corpuscular Hemoglobin 32.0pg (27.0-35.0) Mean Corpuscular Hemoglobin Concent 34.1% (32.0-37.0) Red Cell Distribution Width 15.6% (12.3-15.4) Platelet Count 314bil/L (150-400) Neutrophils (%) (Auto) 81.8% (40-74) Lymphocytes (%) (Auto) 9.3% (14-46) Monocytes (%) (Auto) 6.5% (4-12) Eosinophils (%) (Auto) 1.6% (0-5) Basophils (%) (Auto) 0.5% (0-3) ECG Interpretation ECG Interpretation: normal sinus rhythm with a rate of 60 Time: 16:53 Interpreted by: ED physician X-Ray Abdominal Interpretation IMPRESSION: No acute disease is seen in the acute abdomen series. The bowel gas pattern is normal. Dictated by: Nish Cifuentes M.D. on 11/14/2016 at 18:05 Approved by: Nish Cifuentes M.D. on 11/14/2016 at 18:06 Interpretation / Wet Read by: Interpret - Radiologist Re-Eval/Medical Decision Med Decision/Clinical Course Recurrent hyperkalemia despite outpatient management. We will plan to admit. Patient was given IV calcium, IV insulin, IV dextrose, IV normal saline to treat his hyperkalemia. Source of Hx: Old records Time of Eval: 18:09 Patient Status: Condition improved Re-Evaluation/Progress Note: Pt rechecked, who is no longer vomiting. The diagnosis and plan for admission are discussed. The pt understands and agrees with the plan. All questions are addressed at this time. Time of Eval: 19:51 Re-Evaluation/Progress Note: Pt rechecked, who is resting comfortably. The plan for admission is further discussed with the pt and his . Consultation #1: Referral / Consult Name: Dandre Addison MD Consulted With: Nephrology Call Returned at: 18:16 Bobbin Stripper: Agrees with eval, Agrees with plan Note: Consulted with Dr. Addison, nephrology, regarding pt's case. Dr. Coleman recommends admission. Consultation #2: Referral / Consult Name: Reginaldo Elizondo MD Consulted With: Hospitalist Call Returned at: 19:20 Bobbin Stripper: Agrees with eval, Agrees with plan, Accepts admit Note: Spoke with Dr. Elizondo, hospitalist, regarding pt's case. Dr. Elizondo agrees with the evaluation and agrees to admit the pt. Counseled Regarding: Diagnosis, Lab results, Need for admission Discharge & Departure Primary Impression: Hyperkalemia Additional Impression: Chronic kidney disease Chronic kidney disease stage: unspecified stage Qualified Code: N18.9 - Chronic kidney disease, unspecified Disposition: ADMITTED TO HOSPITAL Discharge Condition All VS Reviewed: Yes Condition: Stable Referrals: Dawson Forman MD (PCP) Crit Care Except Billable Proc Time Spent: 30-74 minutes Services Performed: Patient management by me, Time spent at bedside, Reviewing test results Critical Care Notes: See MDM Caitlinibjade Attestation Portions of this note were transcribed by Martina Sharma. I, Dr. An personally performed the history, physical exam and medical decision-making; I reviewed and confirmed the accuracy of the information in the transcribed note. Signed by: Juvenal Chaparro, 11/14/2016 and 1952. copies to: Dawson Forman MD, Timothy S DO Nov 14, 2016 16:43 MARTINA SHARMA Nov 14, 2016 16:53
[2016-11-14 16:47] VITALS: BP 173/79; PULSE 62; RESP 16; O2SAT 100
[2016-11-14] MEDS ORDERED: 0.9% Sodium Chloride 1,000 ML IV SCH (16:50)
[2016-11-14] MEDS ORDERED: 0.9% Sodium Chloride 1,000 ML IV ONE (16:50)
[2016-11-14] MEDS: Ondansetron 2 mg/mL 2 mL Inj IVPUSH PRN ×3 (17:28→23:40)
[2016-11-14 17:32] LABS: INR 0.92 ratio
[2016-11-14 17:38] LABS: BASOPHILS % (AUTO) 0.5 % (0-3); EOSINOPHILS % (AUTO) 1.6 % (0-5); MONOCYTES % (AUTO) 6.5 % (4-12); Mean Corpuscular Volume 93.8 fL (81-100); NEUTROPHILS % (AUTO) 81.8 % (40-74); Platelet Count 314 bil/L (150-400)
[2016-11-14 17:44] LABS: TROPONIN T < 0.010 ug/L (0.0-0.011)
[2016-11-14 17:50] LABS: Magnesium 2.1 mg/dL (1.6-2.6)
[2016-11-14] MEDS ORDERED: Insulin Human REGular-Omnicell 100 Unit/mL IV ONE (18:05)
[2016-11-14] MEDS ORDERED: Sodium Polystyrene Sulfonate 0.25 Gm/mL 500 mL Suspension PO ONE (18:05)
[2016-11-14] MEDS ORDERED: Dextrose 10% 250 ML IV ONE (18:05)
--- NOTE | 2016-11-14 18:07 | DRSVH ---
PROCEDURE: X-RAY ACUTE ABDOMINAL SERIES ([id number]) INDICATIONS: vomiting TECHNIQUE: One view chest and two views of the abdomen were acquired. COMPARISON: None. FINDINGS: Surgical changes and devices: There is a Port-A-Cath from the left with the tip in the superior vena cava via the azygous vein. court monitor leads are seen over the chest. Chest: Lungs are clear. Heart size is normal. No pleural effusions. No pneumoperitoneum. Abdomen: Bowel gas pattern is normal. No suspicious calcifications. Visualized solid organ contour s appear normal. Bones: No suspicious bony lesions. IMPRESSION: No acute disease is seen in the acute abdomen series. The bowel gas pattern is normal. Dictated by: Nish Cifuentes M.D. on 11/14/2016 at 18:05 Approved by: Nish Cifuentes M.D. on 11/14/2016 at 18:06
[2016-11-14] MEDS ORDERED: Lactulose 20 Gm/30 mL 30 mL Syrup TUBE ONE (18:20)
[2016-11-14] MEDS ORDERED: Calcium GLUCOnate 10% (Gm) 1 Gm/10 mL Inj IVPUSH PRN (18:25)
[2016-11-14 18:26] VITALS: BP 181/78; PULSE 54; RESP 19; O2SAT 100
[2016-11-14] MEDS ORDERED: Polyethylene Glycol (PEG) 17 Gm Powder PO PRN (19:55)
[2016-11-14] MEDS ORDERED: Alum-Mag Hydrox-Simeth 30 mL Suspension PO PRN (19:55)
[2016-11-14] MEDS ORDERED: Insulin Human REGular Inj 100 UNIT in 0.9% Sodium Chloride-Pha MIX 100 ML IV SCH (20:07)
[2016-11-14] MEDS ORDERED: Dextrose 10% 250 ML IV PRN (20:10)
[2016-11-14] MEDS ORDERED: Dextrose 10% 1,000 ML IV PRN (20:22)
[2016-11-14 20:49] VITALS: BP 165/79; PULSE 68; RESP 20; O2SAT 99
[2016-11-14 20:54] VITALS: PULSE 62
--- NOTE | 2016-11-14 22:00 | NUR ---
Admit Pt arrived to [facility] at 2044. Placed pt on tele. Pt stating came to ER due to increased vomiting and high potassium labs. Pt is alert and oriented X3, up independent in room. IV fluids infusing though accessed portacath. Med rec completed by admit RN. Call light within reach, frequent rounding.
--- NOTE | 2016-11-14 22:11 | PCM.HPMED ---
Subjective Date of Service Nov 14, 2016 Primary Provider: Admitting Physician: Reginaldo Elizondo MD Primary Care Physician: Dawson Forman MD Attending Physician: Reginaldo Elizondo MD Admit Status: From the Emergency Department Chief Complaint: Nausea and vomiting History of Present Illness: This is a 56-year-old with past medical history significant for head and neck cancer (stage IV hypopharynx squamous cell carcinoma) status post chemotherapy and radiation with PEG tube placement and followed by Dr. Jurado, cisplatin kidney injury, and cisplatin hearing loss who presents today with nausea and vomiting. The patient states that beginning today at approximately 1 PM he began to throw up numerous times. The patient denies any hematemesis until he arrived into the emergency department where he had some bright red streaks in the vomit similar to previous episodes of hematemesis. The patient denies any worsening abdominal pain or notable significant shortness of breath or gross significant hematemesis. The patient states that his oncologist has required him to continue PEG tube feedings with formula he is unable to name however states that the formula has 600 mg of potassium per serving and he has required 6-1/2 servings per day. He denies any chest pain or pressure, shortness of breath, diarrhea, fevers, chills. The patient's most recent hospital stays occurred from in late September and in early October both times he was admitted for hyperkalemia secondary to cisplatin and worsening kidney injury. During the late September hospital stay he received 1 unit PRBCs due to normocytic anemia with an endoscopy evaluation performed for upper GI bleed on October [address] Crawford with subsequent PEG tube placement. Review of Systems: A comprehensive review of systems was obtained and all are negative except for what is included in the history of present illness. Allergies Coded Allergies: No Known Allergies (Unverified , 11/12/16) Home Medications Beclomethasone Dipropionate (Qvar) 8.7 Gm Aer.w.adap 1 PUFF INHALATION BID Silver Sulfadiazine (Ssd 25GM Pp) 25 Gm Cr 1 APPLIC TOPICAL TID Sodium Polystyrene Sulfonate (Kayexalate) 453.6 Gm Powder 15 ML PO DAILY Albuterol Sulfate (Ventolin HFA Inhaler) 200 Puff/18 Gm Inhaler 2 PUFF INH Q4 PRN PRN For Wheezing Alprazolam (Alprazolam) 0.5 Mg Tablet 0.5 MG PO TID PRN PRN For Anxiety for Anxiety and at Bedtime for sleep Cyproheptadine HCl (Cyproheptadine HCl) 4 Mg Tablet 4 MG PO TID PRN PRN For Eye Irritation Lorazepam (Ativan) 0.5 Mg Tablet 0.5 MG PO TID PRN PRN For Nausea Ondansetron ODT (Ondansetron ODT) 4 Mg Tab.rapdis 8 MG PO Q4H PRN PRN For Nausea /Vomiting Oxycodone (Roxicodone) 5 Mg Tablet 5 MG PO Q4H PRN PRN For Pain Sumatriptan Succinate (Sumatriptan Succinate) 6 Mg/0.5 Ml Vial 6 MG SQ BID PRN PRN migraine PMH Patient admitted October 23-2016 for dysphagia secondary to squamous cell carcinoma, hyperkalemia Head and neck cancer status post chemotherapy and radiation followed by Dr. Jurado (stage IV hypopharynx squamous cell carcinoma) and apparently completed treatment for the carcinoma October 14, 2016 COPD Asthma Cluster headaches Cisplatin-induced acute renal injury Cisplatin-induced hearing loss Surgical History Bilateral Inguinal hernia repair Chest tube in 1992 Left Elbow surgery 1995 Endoscopy September 2016 PEG tube placement Family History Mother of lung cancer at age 65 Maternal grandfather of possible prostate cancer Father had Parkinson's disease Social History Occupation: dairy machine operator farmworker Hx Alcohol Use: Yes (none the last 2 months) Hx Substance Use: Yes (inhaled marijuana daily) Hx Tobacco Use: Yes Smoking Status: Former Smoker Years of Smokin (Up to 90 pack years) Exam Vital Signs Vital Sign - Last Date Time Temp Pulse Resp B/P Pulse Ox O2 Delivery O2 Flow Rate FiO2 11/14/16 20:49 37.2 68 20 165/79 99 Room Air Exam General: Cachectic chronically ill-appearing middle-aged male appearing older than stated age in no acute distress currently lying in bed Eyes: Pupils equal, round, and reactive to light and accommodation. Anicteric sclerae, moist conjunctivae, and no lid lag. HENT: Normocephalic, atraumatic. External ears without defect. Oropharynx clear without central cyanosis and moist mucous membranes, notable alopecia. Neck: Supple with full range of motion. No jugular venous distension. Increased pigmentation surrounding neck. No lymphadenopathy or thyromegaly. Cardiovascular: Regular rate and rhythm with no murmurs, rubs, or gallops appreciated Pulmonary: Clear to auscultation bilaterally with no crackles, wheezes, or rhonchi. Normal respiratory effort with no use of accessory muscles. Abdomen: Bowel tones present. PEG tube in place with no surrounding erythema. Soft, mild tenderness to palpation in left upper quadrant without rebound or guarding, nondistended. No hepatosplenomegaly or masses appreciated. Extremities: No clubbing, cyanosis, edema, or lymphadenopathy appreciated. Pulses intact bilaterally and radial and dorsalis pedis Skin: Normal temperature, turgor, and texture; no rash, ulcers, or subcutaneous nodules appreciated. Neurological: Cranial nerves grossly intact. Normal muscle strength, tone, and bulk. Reflexes, coordination, and sensory function within normal limits. No known gait impairment. Psychiatric: Normal mood and affect. Alert and oriented to person, place, and time. Lab and Diagnostics Result Diagram: 11/14/16 1720 11/14/16 1713 X-Rays, CTs and MRIs X-RAY ACUTE ABDOMINAL SERIES IMPRESSION: No acute disease is seen in the acute abdomen series. The bowel gas pattern is normal. Dictated by: Nish Cifuentes M.D. on 11/14/2016 at 18:05 Assessment & Plan This is a 56 year old male with PEG tube placement due to stage IV hypopharynx SCC who presents with recurrent hyperkalemia with intractable nausea and vomiting and new onset hematemesis. # Recurrent acute on chronic hyperkalemia - The patient states that he continues to suffer from hyperkalemia due to high potassium ingestion from his PEG tube feedings. The patient does not recall the exact name of his nutritional supplement however he states that it has 600 mg of potassium per serving and he required 6-1/2 servings per day. - Review the patient's oncology notes shows that the patient is on Isosource 1.5 , via his PEG tube - The patient has not been hospitalized 3 times recently twice within the last month for hyperkalemia - The patient states that since Friday he has taken 2 doses of Kayexalate - Nephrology was consulted from the emergency department and it was decided that the patient will be given lactulose to help with bowel movements however no Kayexalate would be given tonight - The patient was given 10 units of regular insulin IV as well as D10 dextrose IV in the emergency department to help transiently drive potassium intracellularly as well as calcium gluconate to help stabilize cardiac electrical activity - Potassium dropped from 6.3 at admission to 5.8 approximately 6 hours later - A second round of 10 units of regular insulin IV as well as D10 dextrose IV - Regular BMP checks for potassium as well as kidney function - Nephrology has been consulted to help regulate electrolytes # Acute on chronic nausea and vomiting with hematemesis -The patient reports that in the ED he developed hematemesis and the floor nurse reports 150 ML's of blood streaked dark vomit. -The patient denies shortness of breath or chest pain making Boerhaave less likely however Nakita-Ewing tear remains a possibility. -Patient has improved symptoms after Zofran and 2 boluses of normal saline in the emergency department -We will continue Zofran as this improved patient's symptoms in the emergency department -Normal saline at 80 mm per hour -Clear liquid diet ordered. -Day team to consider GI consult given new onset hematemesis with white blood streaked -Protonix strip # Acute on chronic cisplatin related kidney injury, present on admission, ongoing: -This is likely chronic kidney injury from cisplatin with possible concomitant acute kidney injury due to prerenal azotemia. -Creatinine currently at 2.2, which has been around baseline since September 30, prior to which his baseline creatinine was less than 1 -Normal saline at 80 mL per hour overnight # Stage IV hypopharynx squamous cell carcinoma complicated by dysphasia now requiring tube feedings -Patient completed chemotherapy with cisplatin and radiation treatment on September -PEG tube in place. -Pain management: Fentanyl and oxycodone # Normocytic anemia secondary to chemotherapy - Hemoglobin 10.9, repeated with hemoglobin remaining stable - This will be continued to monitor regularly given new onset hematemesis # Constipation, present on admission, chronic: - The patient received a dose of lactulose in the ED - Miralax when necessary # Cisplatin-induced hearing loss -Continue to monitor. # Chronic obstructive pulmonary disease -Continue home inhalers Qvar DVT prophylaxis with SCD;s. Dayteam an consider heparin DVT prophylaxis versus GI consultation for hematemesis. GI prophylaxis: Protonix drip Patient is admitted under observation status with expected length of stay less than than 2 midnights given the presenting symptoms, risk of adverse event, and complexity of treatment plan. Pain Evaluation: Adequate Pain Control GI Prophylaxis: Proton Pump Inhibitor VTE Prophylaxis Indicated: Contraindicated (due to new onset hematemesis) VTE Prophylaxis: SCDs VTE Mechanical Devices: Intermittant Pneumatic CD Resuscitation Status: CPR: Attempt Resuscitation Attending Statement The patient was seen and examined together with Dr. Lou on 11/14 and I agree with the history, exam and plan as outlined in the note above. Raheel Kam DO Nov 14, 2016 22:11 Reginaldo Elizondo MD Nov 15, 2016 02:01
[2016-11-14] MEDS ORDERED: Pantoprazole 40 mg ER24 Tablet PO SCH (22:41)
[2016-11-14 23:44] LABS: Mean Corpuscular Hemoglobin 30.9 pg (27.0-35.0); Mean Corpuscular Volume 94.2 fL (81-100)
[2016-11-15 00:24] VITALS: BP 170/75; PULSE 66; RESP 16; O2SAT 95
[2016-11-15] MEDS ORDERED: Insulin Human REGular 300 Unit/3 mL Inj IV ONE (00:45)
[2016-11-15] MEDS: 0.9% Sodium Chloride 1,000 ML IV SCH ×2 (01:30→14:06)
[2016-11-15] MEDS: Pantoprazole Inj 80 MG in 0.9% Sodium Chloride 80 ML IV SCH ×2 (03:15→14:06)
[2016-11-15 04:47] VITALS: BP 160/77; PULSE 72; RESP 16; O2SAT 96
[2016-11-15] MEDS: Ondansetron 2 mg/mL 2 mL Inj IVPUSH PRN (05:37)
[2016-11-15 06:12] LABS: Mean Corpuscular Hemoglobin 31.8 pg (27.0-35.0); Mean Corpuscular Volume 94.7 fL (81-100)
--- NOTE | 2016-11-15 06:30 | NUR ---
Potassium/Emesis Pt's K+ lab 5.8, notified. 10 units regular insulin given IV per MD orders with D10 IV fluids. Pt's BG stable, frequent checks. Pt had total 300 mL coffee ground emesis, notified. Protonix drip infusing per orders. Medicating pt with 8 mg IV zofran PRN. K+ lab this AM was 5.6, paged. No new orders at this time.
[2016-11-15 08:48] VITALS: BP 137/72; PULSE 78; RESP 18; O2SAT 99
[2016-11-15] MEDS ORDERED: Methylnaltrexone 12 mg/0.6 mL Inj SUBQ ONE (10:05)
[2016-11-15 10:12] VITALS: PULSE 73
[2016-11-15] MEDS ORDERED: Lactulose 20 Gm/30 mL 30 mL Syrup TUBE ONE (10:15)
[2016-11-15] MEDS: Fluticasone 100 mCg Inhaler INHALATION SCH ×2 (10:21→20:28)
--- NOTE | 2016-11-15 11:48 | NUR ---
NUTRITION ASSESSMENT: ASSESS: 56 YO male with past medical history significant for head and neck cancer (stage IV hypopharynx squamous cell carcinoma), status post chemotherapy and radiation with PEG tube placement, followed by Dr. Jurado, presents with nausea and vomiting,hematemesis and persistent hyperkalemia thought to be related to tube feeding formula. Pt oncologist requested tube feeding change by [place] on 11/13 with decreased K+ content. [facility] contacted, recommending Diabetisource, tube feeding product to be delivered today to pt home. Spoke with Dr. Coleman and Sharon re tube feeding start as we do not carry diabetisource, only other low K+ formula is Nepro which is designed for Dialysis pt., much lower in Na and other electrolytes, discussed at length with Jared, not concerned at this time, recommending start on renal formula during hospitalization until able to transition to home tube feeding formula. reports he will be discontinuing IV fluids, Tube feeding orders written to reflect this. 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 DIET: Renal 0% LABS: Reviewed. K+ 5.6,Na 136,BUN 49, Cr 2.18,Glu 153,Alb 4.0 MEDICATIONS: Reviewed. Lactulose. IV Fluids. ANTHROPOMETRICS: 81.3kg, BMI 21.8: Wt trending up since past admit HOME TUBE FEEDING: ISOSOURCE 1.5 6.5 cans/d= 2435kcal,110g pro,3900mg K+ NEW HOME TF RECS: DIABETISOURCE AC 7.5 cans/d = 2250kcal,112g pro, 3000mg K+ Weight loss: Approx. 20% x 6 months = severe malnutrition. IBW: 91.81 kg UBW: 96 kg. (06/2016) ESTIMATED NEEDS (SEVERE MALNUTRITION, CANCER CACHEXIA, STG IIIB RENAL DISEASE): Calories: 1194-6025 kcal (30 - 35 kcal / kg BW) Protein: 80-120 g protein (1.0 - 1.5 g/ kg BW) Fluid: Approx. 2400 mL (30 ml / kg BW) NUTRITION DIAGNOSIS: 1) Severe malnutrition related to altered poor appetite/taste changes,cancer cachexia, as evidenced by approx. 20% weight loss x 6 months, ongoing nausea, vomiting, dehydration. 2) Altered nutrition related laboratory values related to Stg IIIB Kidney disease/cisplatin induced kidney injury and dehydration as evidenced by elevated BUN/creatinine, K+. INTERVENTION: 1) PEG tube feeding orders placed in chart, discussed with MD and RN as follows: Nepro at 25ml/hr advancing 10ml q 8hrs to goal rate of 55ml/hr (x23hrs) with H20 flush of 125ml q 2 hrs to provide 2277kcal,102g pro, 2419ml fluid, 1340mg K+. 2) Pt was instructed to reduce amount of apple juice (drinking 16oz/d) per home health RD. Reviewed High K+ foods at length with pt/, handout provided. Reviewed home health tube feeding recommendations with pt (with lower K+ content) and type of product (Diabetisource) that pt will be receiving at home. MONITOR/EVALUATE: Enteral feeding start / advance / tolerance, renal labs/electrolytes,diet tolerance, PO intake, labs, GI/nutrition status. Follow up per high nutrition risk guidelines.
[2016-11-15 13:01] VITALS: BP 122/69; PULSE 66; RESP 16; O2SAT 97
[2016-11-15] MEDS: 0.9% Sodium Chloride 250 ML IV SCH (13:32)
[2016-11-15] MEDS ORDERED: HepLOK Flush 100 unit/mL 5 mL Inj IVFLUSH PRN (13:35)
[2016-11-15] MEDS ORDERED: Sodium Chloride LOK Flush 10 mL Syringe IVFLUSH PRN ×2 (13:35)
--- NOTE | 2016-11-15 14:19 | NUR ---
Social Work: Screening Data: Pt is a 56 y/o male admitted for hyperkalemia. Pt's PCP is Dr Forman, pt's insurance is [employer]. EMR reviewed. Readmit score not listed. Pt discussed in rounds, reported that pt has tube feeds at home. MD states pt likely to return home at d/c. Likely no d/c planning needs. CUSTOMER SERVICE SUPERVISOR will continue to follow if needs arise. Assessment: Pt who is independent at baseline, tube feeds. Plan: Pt will d/c home via POV when medically stable with resume tube feeds. Likely no d/c planning needs. CUSTOMER SERVICE SUPERVISOR will continue to follow if needs arise. BRADLEY Vasquez
--- NOTE | 2016-11-15 14:35 | PCM.CHPMED ---
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 Nephrology service has been consulted to evaluate and treat. Pt had multiple admissions over the past 2 months, most recently (11/01/2016) admitted for severe dehydration with acute kidney injury secondary to nausea, vomiting, and decrease PEG tube feeding rate. With adequate hydration and correction of his hyperkalemia, patient was discharged home after 6 days in hospital. At home, patient states trying to increase caloric intake via increasing enteric feeding rate. Patient also stated eating potato chips. Patient stated daily bowel movements, however only small amounts each day. He states that his bowel movement has never been normal. Last 11/12/2016 , while getting his routine blood work, his oncologist DrRyder Jurado, noted significant hyperkalemia thus sent to the ED. He received Kayexalate in addition to insulin and calcium gluconate. After which he was discharged on his potassium came down to within normal range. Then yesterday, patient reported significant nausea and vomiting unable to alleviate with Zofran, came into the ED for evaluation. His potassium was 6.3. He was given calcium gluconate, insulin, and Kayexalate to help mobilize and excrete potassium. Patient reported small bowel movement thereafter. Then developed hematemesis. On evaluation, patient reports significant nausea, however no vomiting. He denies any chest pain, nor any abdominal pain. Pt further denies any fevers chills. Repeat BMP showed potassium 5.6, BUN and creatinine 49/2.18, sodium 136 , chloride 96, bicarbonate 26. Patient has maintaining his mentation throughout this admission. EKG normal sinus without signs of T waves or suppressed P waves. Patient vitals remain stable. I/O's 1.5/1.2 L. Urinary output 0.8 L. Review of Systems: A comprehensive review of systems was conducted with the patient and found to be negative except as above in the History of Present Illness PMH Past Medical History Squamous cell carcinoma of the hypopharynx stage IV s/p chemotherapy and radiation therapy Dysphagia Failure to thrive post PEG tube placement Hx Cisplantin toxicity: Kidney injury and hearing loss. Chronic kidney disease stage IIIb, baseline creatinine ~2.2 Chronic normocytic anemia COPD Asthma History of alcohol abuse History of spontaneous pneumothorax Bedside Blood Glucose: 147 Surgical History Inguinal hernia repair 2 Chest tube placement in 1992 for spontaneous pneumothorax Elbow surgery in 1985 PEG tube placement on 10/19/2016. Home Medications Beclomethasone Dipropionate (Qvar) 8.7 Gm Aer.w.adap 1 PUFF INHALATION BID Silver Sulfadiazine (Ssd 25GM Pp) 25 Gm Cr 1 APPLIC TOPICAL TID Sodium Polystyrene Sulfonate (Kayexalate) 453.6 Gm Powder 15 ML PO DAILY Scheduled PRN Albuterol Sulfate (Ventolin HFA Inhaler) 200 Puff/18 Gm Inhaler 2 PUFF INH Q4 PRN PRN For Wheezing Alprazolam (Alprazolam) 0.5 Mg Tablet 0.5 MG PO TID PRN PRN For Anxiety for Anxiety and at Bedtime for sleep Cyproheptadine HCl (Cyproheptadine HCl) 4 Mg Tablet 4 MG PO TID PRN PRN For Eye Irritation Lorazepam (Ativan) 0.5 Mg Tablet 0.5 MG PO TID PRN PRN For Nausea Ondansetron ODT (Ondansetron ODT) 4 Mg Tab.rapdis 8 MG PO Q4H PRN PRN For Nausea /Vomiting Oxycodone (Roxicodone) 5 Mg Tablet 5 MG PO Q4H PRN PRN For Pain Sumatriptan Succinate (Sumatriptan Succinate) 6 Mg/0.5 Ml Vial 6 MG SQ BID PRN PRN migraine Allergies: Coded Allergies: No Known Allergies (Unverified , 11/12/16) Family History Family History Mother with lung cancer Father with Parkinson's disease Social History Occupation: dairy worker Hx Alcohol Use: Yes (none the last 2 months)Hx Substance Use: Yes (inhaled marijuana daily)Hx Tobacco Use: Yes Smoking Status: Former Smoker Years of Smokin (Up to 90 pack years) Exam Vital Signs Vital Sign - Last Date Time Temp Pulse Resp B/P Pulse Ox O2 Delivery O2 Flow Rate FiO2 11/15/16 13:01 36.5 66 16 122/69 97 Room Air Intake and Output 11/14/16 11/14/16 11/15/16 Cumulative From/Thru 15:00 23:00 07:00 11/14/16 16:47 - 11/15/16 05:41 Intake Total 1000 ml 1499 ml 2499 ml Output Total 1185 ml 1185 ml Balance 1000 ml 314 ml 1314 ml Intake Oral 200 ml 200 ml IV Total 1000 ml 1299 ml 2299 ml Output Urine Total 835 ml 835 ml Emesis 350 ml 350 ml # Voids 1 1 # Bowel Movements 1 1 General: Alert, Oriented X3, Other ([place] around the neck and shoulder collar) Eyes: PERRLA, EOMI, Scleral Anicteric Mouth: Mucous Membr Moist/[place] Neck: Supple, No Thyromegaly, Other (no JVD) Chest & Lungs: Clear to auscultation & percussion, No adventitious breath sounds Cardiovascular: Exam Unremarkable, Regular Rate/Rhythm, Normal S1, Normal S2, No Murmurs/Rubs/Gallops Abdomen: Non-tender, Non-distended, Normoactive bowel tones Genitourinary: Marino Absent Musculoskeletal: Unremarkable Extremities: No cyanosis/clubbing/edma bilat, Normal bilaterally, Warm, No Edema Neurological: Grossly Neurologically Intact, Cranial Nerves 2-12 Intact, Normal Speech Lab and Diagnostics Result Diagram: 11/15/1630 11/15/16 0530 Assessment & Plan Assessment Patient is a 56-year-old gentleman with medical history significant for 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 Nephrology service has been consulted to evaluate and treat. Patient likely has hyperkalemia secondary to probable excessive intake of potassium and constipation. In the setting of chronic kidney disease, the majority of potassium are excreted via the bowels. Patient was unable to give a clear recounts in his bowel movement, most likely very little. Additionally, patient has reported increase intake of potassium laden foods, potato chips in particular. Moreover, his enteric tube feed Isocal contains high concentration of potassium, amount not renally dosed. We will go ahead and give osmotic laxative to help constipation, lactulose. Nephrology does not recommend Kayexalate as it may cause ischemic bowel. Unrelated, patient reported a schedule CT with IV contrast in the coming days. Recommend patient receives volume alfalfa dehydrator operator with normal saline 1cc/kg for at least 6-12 hours prior to and post procedure to minimize risk of FRANTZ. Problem List # Probable constipation # Hyperkalemia # Dysphagia with PEG for enteral feeding # Chronic kidney disease stage IIIb # Chronic normocytic anemia, multifactorial causes Plan # Lactulose to stimulate bowel movement Problems: Pain Evaluation: Adequate Pain Control GI Prophylaxis: Proton Pump Inhibitor VTE Prophylaxis Indicated: Contraindicated (due to new onset hematemesis) VTE Prophylaxis: SCDs VTE Mechanical Devices: Intermittant Pneumatic CD Resuscitation Status: CPR: Attempt Resuscitation Isauro Owen DO Nov 15, 2016 14:35 Isauro Owen DO Nov 15, 2016 14:35
--- NOTE | 2016-11-15 14:41 | NUR ---
TUBE FEEDING / NAUSEA Discussed tube feeding ordered by MD and feed project engineer with patient who states he would prefer to wait on beginning feed. Patient has some residual nausea and reports he has new tube feed supplies being delivered to his home. Patient has not needed antinausea medication yet this shift. States he would like to resume feeds with his own equipment at home. Discussed with patient the need for proper nutrition during radiation and chemotherapy and patient reports understanding. IV fluids currently running and patient is able to take sips of water, apple juice and ice cubes. Bed low and locked, call light in reach, care and frequent rounding ongoing.
--- NOTE | 2016-11-15 15:51 | PCM.PNMED ---
Subjective Date of Service Nov 15, 2016 Subjective Says overall feeling better today. no further nausea/vomiting Exam Vital Signs Vital Sign - Last Date Time Temp Pulse Resp B/P Pulse Ox O2 Delivery O2 Flow Rate FiO2 11/15/16 13:01 36.5 66 16 122/69 97 Room Air Intake and Output 11/14/16 11/14/16 11/15/16 Cumulative From/Thru 15:00 23:00 07:00 11/14/16 16:47 - 11/15/16 05:41 Intake Total 1000 ml 1499 ml 2499 ml Output Total 1185 ml 1185 ml Balance 1000 ml 314 ml 1314 ml Intake Oral 200 ml 200 ml IV Total 1000 ml 1299 ml 2299 ml Output Urine Total 835 ml 835 ml Emesis 350 ml 350 ml # Voids 1 1 # Bowel Movements 1 1 Exam General: Cachectic chronically ill-appearing in no acute distress Eyes: Pupils equal, round, and reactive to light and accommodation. Anicteric sclerae, moist conjunctivae, and no lid lag. HENT: Normocephalic, atraumatic. Neck: Supple with full range of motion. Cardiovascular: Regular rate and rhythm Pulmonary: Clear to auscultation bilaterally. Normal respiratory effort with no use of accessory muscles. Abdomen: Bowel tones present. PEG tube in place with no surrounding erythema. Soft, nondistended. Extremities: No clubbing, cyanosis, edema, or lymphadenopathy appreciated. Pulses intact bilaterally and radial and dorsalis pedis Skin: Normal temperature, turgor Neurological: Cranial nerves grossly intact. Normal muscle strength, tone, and bulk. Psychiatric: Normal mood and affect. Alert and oriented to person, place, and time. IVs and Medications Medications Reviewed: Medications were reviewed in detail Lab and Diagnostics Result Diagram: 11/15/16 0530 11/15/16 0530 X-Rays, CTs and MRIs X-RAY ACUTE ABDOMINAL SERIES IMPRESSION: No acute disease is seen in the acute abdomen series. The bowel gas pattern is normal. Dictated by: Nish Cifuentes M.D. on 11/14/2016 at 18:05 Assessment & Plan 56 year old male with PEG tube placement due to stage IV hypopharynx SCC who presents with recurrent hyperkalemia with intractable nausea and vomiting # Recurrent acute on chronic hyperkalemia - Likely combination of underlying kidney disease, tube feed and constipation - Appreciate Nephrology consult. Will followup with recommendations - Lactulose to help with bowel movements - The patient was given 10 units of regular insulin IV as well as D10 dextrose IV in the emergency department to help transiently drive potassium intracellularly as well as calcium gluconate to help stabilize cardiac electrical activity - Potassium dropped from 6.3 at admission to 5.8 approximately 6 hours later - Followup BMP in am # Acute on chronic nausea and vomiting with ? hematemesis - Nakita-Ewing tear remains a possibility. - Symptoms already improved - H/H stable. Continue to follow - Continue with Protonix - Consider GI consult if drop in H/H or further episode of hematemesis # Acute on chronic cisplatin related kidney injury, present on admission, ongoing: - This is likely chronic kidney injury from cisplatin with possible concomitant acute kidney injury due to prerenal azotemia. - Followup with nephrology recs # Stage IV hypopharynx squamous cell carcinoma complicated by dysphasia now requiring tube feedings - Patient completed chemotherapy with cisplatin and radiation treatment on October 14, 2016 - PEG tube in place. - Pain management: Fentanyl and oxycodone # Normocytic anemia secondary to chemotherapy - This will be continued to monitor regularly given new onset hematemesis # Constipation, present on admission, chronic: - Continue with with Lactulose - Miralax when necessary # Cisplatin-induced hearing loss - Continue to monitor. # Chronic obstructive pulmonary disease. Stable. - Continue home inhalers Qvar Dispo: 1-2 days GI Prophylaxis: Proton Pump Inhibitor VTE Prophylaxis: SCDs VTE Mechanical Devices: Intermittant Pneumatic CD Resuscitation Status: CPR: Attempt Resuscitation Gilmar Farr Nov 15, 2016 15:51
[2016-11-15 18:51] VITALS: BP 143/70; PULSE 74; RESP 18; O2SAT 99
[2016-11-16] VITALS (8 sets, daily range): BP systolic 137–155; BP diastolic 71–81; PULSE 56–66; RESP 17–18; O2SAT 98–100
[2016-11-16] MEDS: Pantoprazole Inj 80 MG in 0.9% Sodium Chloride 80 ML IV SCH ×3 (01:27→23:55)
[2016-11-16] MEDS: 0.9% Sodium Chloride 1,000 ML IV SCH ×2 (01:29→15:23)
[2016-11-16 05:39] LABS: Mean Corpuscular Hemoglobin 31.6 pg (27.0-35.0)
--- NOTE | 2016-11-16 06:00 | NUR ---
Activity No reports of nausea or pain. Pt up to bathroom independently this shift, steady gait observed. Call light within reach, frequent rounding.
[2016-11-16] MEDS: Fluticasone 100 mCg Inhaler INHALATION SCH ×2 (09:12→19:47)
[2016-11-16] MEDS: 0.9% Sodium Chloride 250 ML IV SCH (10:18)
--- NOTE | 2016-11-16 11:46 | NUR ---
Tube feed Tube feed started at 1130 today, verified by Mark Killian RN. 25mL of Nepro nutrition infusing, to be advanced Q8 hrs and flushed 125mL Q2 hrs. End goal is 55mL-all per plant operations vice president recommendations. Placement checked. Tube flushed well with water. Pt has denied nausea prior to start. Will continue with frequent rounding.
--- NOTE | 2016-11-16 12:34 | PCM.PNNEPH ---
Subjective Date of Service Nov 16, 2016 Subjective No new conmplaint today. Now on nepro K 5.2. No CP/SOB/N/V. Exam Vital Signs Vital Sign - Last Date Time Temp Pulse Resp B/P Pulse Ox O2 Delivery O2 Flow Rate FiO2 11/16/16 10:11 64 11/16/16 09:09 37.0 17 137/74 100 Room Air Intake and Output 11/15/16 11/15/16 11/16/16 Cumulative From/Thru 15:00 23:00 07:00 11/14/16 16:47 - 11/16/16 06:56 Intake Total 2825 ml 1220 ml 6544 ml Output Total 1225 ml 850 ml 3260 ml Balance 1600 ml 370 ml 3284 ml Intake Oral 1725 ml 200 ml 2125 ml IV Total 1100 ml 1020 ml 4419 ml Output Urine Total 1225 ml 850 ml 2910 ml Emesis 350 ml # Voids 1 # Bowel Movements 0 0 1 Exam General: Alert, Oriented X3, generalized alopecia. Eyes: PERRLA, EOMI, Scleral Anicteric Mouth: Mucous Membr Moist/[place] Neck: Supple, No Thyromegaly, hyperpigmentation noted on neck Chest & Lungs: Clear to auscultation & percussion, No adventitious breath sounds Cardiovascular: Exam Unremarkable, Regular Rate/Rhythm, Normal S1, Normal S2, No Murmurs/Rubs/Gallops Abdomen: Non-tender, Non-distended, Normoactive bowel tones, PEG tube in place. Genitourinary: Marino Absent Musculoskeletal: Unremarkable Extremities: No cyanosis/clubbing/edma bilat, Normal bilaterally, Warm, No Edema Neurological: Grossly Neurologically Intact, Cranial Nerves 2-12 Intact, Normal Speech Lab and Diagnostics Result Diagram: 11/16/16 0530 11/16/16 0530 X-Rays, CTs and MRIs X-RAY ACUTE ABDOMINAL SERIES IMPRESSION: No acute disease is seen in the acute abdomen series. The bowel gas pattern is normal. Dictated by: Nish Cifuentes M.D. on 11/14/2016 at 18:05 Plan Impression 1. FRANTZ on CKD-3 due to prerenal azotemia. 2. Hyperkalemia multifactorial: constipation, CKD, on high K diet. 3. Dysphagia with PEG for enteral feeding 4. Chronic normocytic anemia, multifactorial causes 5. Stage 4 head and neck cancer. Plan: Continue IVF NS 80 ml/hr and water flushes. Continue nepho, recommend 2 g K diet per day. Lactulose as needed for constipation. Dandre Addison MD Nov 16, 2016 12:34
--- NOTE | 2016-11-16 15:22 | NUR ---
Social Work-readiness for discharge: Data:EMR Reviewed. Pt is on day 2 of hospitalization for hyperkalemia per H&P. Pt is not medically stable anticipate 1-2 more days. NIDHI met with pt to discuss discharge planning, SW role explained. Pt resides at home with his SO Bernice. Pt has home tube feeds and gets his supplies through [facility]. SW to await MD orders for resume home tube feeds. SW to contact [facility] post order. Pt confirms his SO will provide transport home at discharge. SW will continue to follow. Assessment:Pt who is independent at baseline. Plan:Pt to discharge home when medically stable via POV. SW to await MD orders for resume home tube feeds. Pt is open with [facility]. NIDHI will continue to follow. BRADLEY Vega Addendum: 11/16/16 at 1549 by ERIKA IBRAHIM SS MD order received for resume home tube feeds. NIDHI placed a call to [facility] and spoke with Erika. Erika confirms pt is a current pt and pt will need resume tube feed orders at discharge to be faxed into [facility]. NIDHI will continue to follow. BRADLEY Vega
--- NOTE | 2016-11-16 16:27 | PCM.PNMED ---
Subjective Date of Service Nov 16, 2016 Subjective Denies any new issues/complaints. no further nausea/vomiting Exam Vital Signs Vital Sign - Last Date Time Temp Pulse Resp B/P Pulse Ox O2 Delivery O2 Flow Rate FiO2 11/16/16 12:53 36.3 57 18 137/73 98 Room Air Intake and Output 11/15/16 11/15/16 11/16/16 Cumulative From/Thru 15:00 23:00 07:00 11/14/16 16:47 - 11/16/16 06:56 Intake Total 2825 ml 1220 ml 6544 ml Output Total 1225 ml 850 ml 3260 ml Balance 1600 ml 370 ml 3284 ml Intake Oral 1725 ml 200 ml 2125 ml IV Total 1100 ml 1020 ml 4419 ml Output Urine Total 1225 ml 850 ml 2910 ml Emesis 350 ml # Voids 1 # Bowel Movements 0 0 1 Exam General: Cachectic chronically ill-appearing in no acute distress Eyes: Pupils equal, round, and reactive to light and accommodation. Anicteric sclerae, moist conjunctivae, and no lid lag. HENT: Normocephalic, atraumatic. Neck: Supple with full range of motion. Cardiovascular: Regular rate and rhythm Pulmonary: Clear to auscultation bilaterally. Normal respiratory effort with no use of accessory muscles. Abdomen: Bowel tones present. PEG tube in place with no surrounding erythema. Soft, nondistended. Extremities: No clubbing, cyanosis, edema, or lymphadenopathy appreciated. Pulses intact bilaterally and radial and dorsalis pedis Skin: Normal temperature, turgor Neurological: Cranial nerves grossly intact. Normal muscle strength, tone, and bulk. Psychiatric: Normal mood and affect. Alert and oriented to person, place, and time. IVs and Medications Medications Reviewed: Medications were reviewed in detail Lab and Diagnostics Result Diagram: 11/16/16 0530 11/16/16 0530 X-Rays, CTs and MRIs X-RAY ACUTE ABDOMINAL SERIES IMPRESSION: No acute disease is seen in the acute abdomen series. The bowel gas pattern is normal. Dictated by: Nish Cifuentes M.D. on 11/14/2016 at 18:05 Assessment & Plan 56 year old male with PEG tube placement due to stage IV hypopharynx SCC who presents with recurrent hyperkalemia with intractable nausea and vomiting # Recurrent acute on chronic hyperkalemia. Improved - Likely combination of underlying kidney disease, tube feed and constipation - Appreciate Nephrology consult. Will followup with recommendations - Lactulose to help with bowel movements - The patient was given 10 units of regular insulin IV as well as D10 dextrose IV in the emergency department to help transiently drive potassium intracellularly as well as calcium gluconate to help stabilize cardiac electrical activity - Potassium dropped from 6.3 at admission to 5.8 approximately 6 hours later - Followup BMP in am # Acute on chronic nausea and vomiting with ? hematemesis - Nakita-Ewing tear remains a possibility. - Symptoms already improved - H/H slightly lower today. Continue to follow - Continue with Protonix - Consider GI consult if further drop in H/H or further episode of hematemesis # Acute on chronic cisplatin related kidney injury, present on admission, ongoing: - This is likely chronic kidney injury from cisplatin with possible concomitant acute kidney injury due to prerenal azotemia. - Followup with nephrology recs # Stage IV hypopharynx squamous cell carcinoma complicated by dysphasia now requiring tube feedings - Patient completed chemotherapy with cisplatin and radiation treatment on October 14, 2016 - PEG tube in place. - Pain management: Fentanyl and oxycodone # Normocytic anemia secondary to chemotherapy - This will be continued to monitor regularly given new onset hematemesis # Constipation, present on admission, chronic: - Continue with with Lactulose - Miralax when necessary # Cisplatin-induced hearing loss - Continue to monitor. # Chronic obstructive pulmonary disease. Stable. - Continue home inhalers Qvar Dispo: 1-2 days GI Prophylaxis: Proton Pump Inhibitor VTE Prophylaxis: SCDs VTE Mechanical Devices: Venous Foot Pump Resuscitation Status: CPR: Attempt Resuscitation Gilmar Farr Nov 16, 2016 16:27
[2016-11-17 00:33] VITALS: BP 156/61; PULSE 65; RESP 18; O2SAT 97
[2016-11-17] MEDS: 0.9% Sodium Chloride 1,000 ML IV SCH (03:23)
--- NOTE | 2016-11-17 03:26 | NUR ---
Gastric Tube Feed Rate Tube feed rate now at 45ml/hr, Pt tolerating well and has tolerated increase at beginning of shift as well.
[2016-11-17 05:30] LABS: BASOPHILS % (AUTO) 1.7 % (0-3); EOSINOPHILS % (AUTO) 3.6 % (0-5); MONOCYTES % (AUTO) 9.9 % (4-12); Mean Corpuscular Hemoglobin 32.2 pg (27.0-35.0); Mean Corpuscular Volume 94.6 fL (81-100); NEUTROPHILS % (AUTO) 58.1 % (40-74); Platelet Count 263 bil/L (150-400)
[2016-11-17 05:31] VITALS: PULSE 53
[2016-11-17 05:55] VITALS: BP 133/70; PULSE 65; RESP 18; O2SAT 97
[2016-11-17 05:58] LABS: Magnesium 1.6 mg/dL (1.6-2.6); Phosphorus 5.4 mg/dL (2.5-4.9)
[2016-11-17 08:53] VITALS: PULSE 70
[2016-11-17] MEDS: Fluticasone 100 mCg Inhaler INHALATION SCH (09:24)
[2016-11-17] MEDS: Pantoprazole Inj 80 MG in 0.9% Sodium Chloride 80 ML IV SCH (09:24)
[2016-11-17 09:45] VITALS: BP 134/69; PULSE 69; RESP 18; O2SAT 99
--- NOTE | 2016-11-17 12:20 | NUR ---
Tube feed Rate increased to 55ml/hr this morning at 1145 and is now at goal rate. Pt is tolerating well, denies any N/V/D. Continue with 125ml H20 flush Q2 as ordered.
--- NOTE | 2016-11-17 13:09 | PCM.PNNEPH ---
Subjective Date of Service Nov 17, 2016 Subjective Doing better, no new complaints today. No F/C/N/V/CP/SOB. K 4.7, Cr 1.93 Exam Vital Signs Vital Sign - Last Date Time Temp Pulse Resp B/P Pulse Ox O2 Delivery O2 Flow Rate FiO2 11/17/16 09:45 36.5 69 18 134/69 99 Room Air Intake and Output 11/16/16 11/16/16 11/17/16 Cumulative From/Thru 15:00 23:00 07:00 11/14/16 16:47 - 11/17/16 06:13 Intake Total 20 ml 3625 ml 2291 ml 74821 ml Output Total 1975 ml 775 ml 6010 ml Balance 20 ml 1650 ml 1516 ml 6470 ml Intake Oral 1919 ml 200 ml 4244 ml IV Total 1076 ml 1079 ml 6574 ml Tube Feeding 155 ml 387 ml 542 ml Tube Irrigant 20 ml 475 ml 625 ml 1120 ml Output Urine Total 1975 ml 775 ml 5660 ml Emesis 350 ml # Voids 1 # Bowel Movements 0 1 Exam General: Alert, Oriented X3, generalized alopecia. Eyes: PERRLA, EOMI, Scleral Anicteric Mouth: Mucous Membr Moist/[place] Neck: Supple, No Thyromegaly, hyperpigmentation noted on neck Chest & Lungs: Clear to auscultation & percussion, No adventitious breath sounds Cardiovascular: Exam Unremarkable, Regular Rate/Rhythm, Normal S1, Normal S2, No Murmurs/Rubs/Gallops Abdomen: Non-tender, Non-distended, Normoactive bowel tones, PEG tube in place. Genitourinary: Marino Absent Musculoskeletal: Unremarkable Extremities: No cyanosis/clubbing/edma bilat, Normal bilaterally, Warm, No Edema Neurological: Grossly Neurologically Intact, Cranial Nerves 2-12 Intact, Normal Speech Lab and Diagnostics Result Diagram: 11/17/16 0511/17/16 0526 X-Rays, CTs and MRIs X-RAY ACUTE ABDOMINAL SERIES IMPRESSION: No acute disease is seen in the acute abdomen series. The bowel gas pattern is normal. Dictated by: Nish Cifuentes M.D. on 11/14/2016 at 18:05 Plan Impression 1. FRANTZ on CKD-3 due to prerenal azotemia. improving. 2. Hyperkalemia multifactorial: constipation, CKD, on high K diet. resolved. 3. Dysphagia with PEG for enteral feeding 4. Chronic normocytic anemia, multifactorial causes 5. Stage 4 head and neck cancer. 6. Worsening anemia. Plan: Continue free water flushes. Continue nepho, recommend 2 g K diet per day. Lactulose as needed for constipation. will sign off, please do not hesitate to call with any concern. Thank you for the consultation. If d/c home, f/u in 2-3 weeks. Dandre Addison MD Nov 17, 2016 13:09
[2016-11-17] MEDS: 0.9% Sodium Chloride 250 ML IV SCH (13:32)
[2016-11-17] MEDS ORDERED: SENN-133 PO (13:34)
[2016-11-17] MEDS ORDERED: POLY17PO6 PO (13:34)
[2016-11-17] MEDS ORDERED: LACT10SO27 PO (13:39)
--- NOTE | 2016-11-17 13:51 | PCM.DIMED ---
Discharge Instructions Date of Service Nov 17, 2016 Dates of Hospitalization Nov 14, 2016 at 19:43 Discharge Diagnosis Discharge Diagnosis # Recurrent acute on chronic hyperkalemia. Resolved # Acute on chronic nausea and vomiting with hematemesis. Present on admission. Resolved. # Acute on chronic normocytic anemia multifactorial. Present on admission. Ongoing - Will need close followup with primary care provider or oncologist in coming days to ensure stability # Acute kidney injury on chronic kidney disease (stage III) due to prerenal azotemia, present on admission. Improved. 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 Improved. # Chronic obstructive pulmonary disease. Stable. Diet Discharge Diet: Other (Resume home health tube feeding) Activity Discharge Activity: No restrictions Call your provider Call your provider for: Fever or Chills, Shortness of breath, Bleeding, Chest pain, Vomitting Patient Instructions Patient Instructions Seek immediate medical attention if any new or worsening signs or symptoms occur. Continue nepho, recommend 2 g K diet per day. Follow-up plan 1. Followup with primary care provider in 2-5 days. 2. Followup with oncology (Dr. Jurado) as previously scheduled. Follow-up Provider: Dawson Forman MD Provider: Ana M Jurado MD, Masoud Nov 17, 2016 13:51
--- NOTE | 2016-11-17 13:57 | NUR ---
Social Work-discharge: Data:EMR Reviewed. Pt is on day 3 of hospitalization for hyperkalemia per H&P. Pt is medically stable for discharge. NIDHI spoke with Erika from [facility] and informed her of discharge. NIDHI faxed in resume tube feed orders to [facility]. Erika confirms that pt has enough supplies at home. Pt and SO updated and agreeable to plan. All updated and agreeable to plan. Assessment:Pt who would benefit from resume tube feeds. Plan:Pt to discharge home today via POV. [facility] aware pt is discharging today and resume tube feed orders have been faxed in. Pt has supplies at home. All updated and agreeable to plan. BRADLEY Vega
--- NOTE | 2016-11-17 14:22 | PCM.DC.MED ---
Discharge Summary Date of Service Nov 17, 2016 Dates of Hospitalization Date of Hospital Admission Nov 14, 2016 at 19:43 Date of Discharge: Nov 17, 2016 Providers: Admitting Physician: Reginaldo Elizondo MD Primary Care Physician: Dawson Forman MD Attending Physician: Reginaldo Elizondo MD Diagnosis at Time of Discharge Diagnosis at Time of Discharge # Recurrent acute on chronic hyperkalemia. Resolved # Acute on chronic nausea and vomiting with hematemesis. Present on admission. Resolved. # Acute on chronic normocytic anemia multifactorial. Present on admission. Ongoing - Will need close followup with primary care provider or oncologist in coming days to ensure stability # Acute kidney injury on chronic kidney disease (stage III) due to prerenal azotemia, present on admission. Improved. 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 Improved. # Chronic obstructive pulmonary disease. Stable. Consultations 1. Nephrology Procedures XRay, CTs & MRIs X-RAY ACUTE ABDOMINAL SERIES IMPRESSION: No acute disease is seen in the acute abdomen series. The bowel gas pattern is normal. Dictated by: Nish Cifuentes M.D. on 11/14/2016 at 18:05 Brief History As noted in H&P by Dr. Kam: This is a 56-year-old with past medical history significant for head and neck cancer (stage IV hypopharynx squamous cell carcinoma) status post chemotherapy and radiation with PEG tube placement and followed by Dr. Jurado, cisplatin kidney injury, and cisplatin hearing loss who presents today with nausea and vomiting. The patient states that beginning today at approximately 1 PM he began to throw up numerous times. The patient denies any hematemesis until he arrived into the emergency department where he had some bright red streaks in the vomit similar to previous episodes of hematemesis. The patient denies any worsening abdominal pain or notable significant shortness of breath or gross significant hematemesis. The patient states that his oncologist has required him to continue PEG tube feedings with formula he is unable to name however states that the formula has 600 mg of potassium per serving and he has required 6-1/2 servings per day. He denies any chest pain or pressure, shortness of breath, diarrhea, fevers, chills. The patient's most recent hospital stays occurred from in late September and in early October both times he was admitted for hyperkalemia secondary to cisplatin and worsening kidney injury. During the late September hospital stay he received 1 unit PRBCs due to normocytic anemia with an endoscopy evaluation performed for upper GI bleed on October [address] Crawford with subsequent PEG tube placement. Hospital Course # Recurrent acute on chronic hyperkalemia. Resolved - Likely combination of underlying kidney disease, tube feed and constipation - Appreciate Nephrology consult. - Lactulose was given to help with bowel movements - The patient was given 10 units of regular insulin IV as well as D10 dextrose IV in the emergency department to help transiently drive potassium intracellularly as well as calcium gluconate to help stabilize cardiac electrical activity - Potassium dropped from 6.3 at admission to 4.7 by day of discharge - Tube feed changed to low Potassium # Acute on chronic nausea and vomiting with ? hematemesis - Nakita-Ewing tear remains a possibility. - Without any further nausea or vomiting since admit to the floor. - Had a brown stool on day of discharge - No abdominal paini - H/H lower than admission but suspect likely dilutional in nature. H/H fairly stable over past 24 hours prior to discharge - Patient advised to followup with either PCP or Oncology in next 2-5 days to ensures stability of h/h and for consideration of further GI followup if indicated. # Acute on chronic kidney injury, present on admission, Improved - This is likely chronic kidney injury from cisplatin with possible concomitant acute kidney injury due to prerenal azotemia. 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 # Constipation, present on admission, chronic: - Continue with with Lactulose - Miralax when necessary # Cisplatin-induced hearing loss. stable # Chronic obstructive pulmonary disease. Stable. - Continue home inhalers Qvar Exam Vital Signs (Last) Date Time Temp Pulse Resp B/P Pulse Ox O2 Delivery O2 Flow Rate FiO2 11/17/16 09:45 36.5 69 18 134/69 99 Room Air Exam General: Cachectic chronically ill-appearing in no acute distress Eyes: Pupils equal, round, and reactive to light and accommodation. Anicteric sclerae, moist conjunctivae, and no lid lag. HENT: Normocephalic, atraumatic. Neck: Supple with full range of motion. Cardiovascular: Regular rate and rhythm Pulmonary: Clear to auscultation bilaterally. Normal respiratory effort with no use of accessory muscles. Abdomen: Bowel tones present. PEG tube in place with no surrounding erythema. Soft, nondistended. Extremities: No clubbing, cyanosis, edema, or lymphadenopathy appreciated. Pulses intact bilaterally and radial and dorsalis pedis Skin: Normal temperature, turgor Neurological: Cranial nerves grossly intact. Normal muscle strength, tone, and bulk. Psychiatric: Normal mood and affect. Alert and oriented to person, place, and time. Test 11/14/16 17:13 11/17/16 05:26 Prothrombin Time 9.8sec (8.1-12.5) Prothromb Time International Ratio 0.92ratio Troponin T < 0.010ug/L (0.0-0.011) White Blood Count 3.6th/mm3 (3.8-10.1) Red Blood Count 2.61mil/mm3 (4.40-5.80) Hemoglobin 8.4g/dL (13.8-17.2) Hematocrit 24.7% (41.0-50.0) Mean Corpuscular Volume 94.6fL (81-100) Mean Corpuscular Hemoglobin 32.2pg (27.0-35.0) Mean Corpuscular Hemoglobin Concent 34.0% (32.0-37.0) Red Cell Distribution Width 15.0% (12.3-15.4) Platelet Count 263bil/L (150-400) Neutrophils (%) (Auto) 58.1% (40-74) Lymphocytes (%) (Auto) 26.4% (14-46) Monocytes (%) (Auto) 9.9% (4-12) Eosinophils (%) (Auto) 3.6% (0-5) Basophils (%) (Auto) 1.7% (0-3) Sodium Level 135mEq/L (134-144) Potassium Level 4.7mEq/L (3.5-5.2) Chloride Level 100mEq/L (97-108) Carbon Dioxide Level 23mmol/L (18-29) Blood Urea Nitrogen 38mg/dL (6-24) Creatinine 1.93mg/dL (0.76-1.27) Estimat Glomerular Filtration Rate 38mL/min (>59) Glucose Level 88mg/dL (60-99) Calcium Level 9.0mg/dL (8.5-10.1) Phosphorus Level 5.4mg/dL (2.5-4.9) Magnesium Level 1.6mg/dL (1.6-2.6) Total Bilirubin 0.2mg/dL (0.0-1.2) Aspartate Amino Transf (AST/SGOT) 11U/L (0-50) Alanine Aminotransferase (ALT/SGPT) 11U/L (0-44) Alkaline Phosphatase 60U/L (25-150) Total Protein 5.8g/dL (6.4-8.4) Albumin 3.3g/dL (3.4-5.0) Discharge Medications Discharge Medications Beclomethasone Dipropionate (Qvar) 8.7 Gm Aer.w.adap 1 PUFF INHALATION BID ( Reported) Silver Sulfadiazine (Ssd 25GM Pp) 25 Gm Cr 1 APPLIC TOPICAL TID (Reported) As needed Albuterol Sulfate (Ventolin HFA Inhaler) 200 Puff/18 Gm Inhaler 2 PUFF INH Q4 PRN PRN For Wheezing (Reported) Alprazolam (Alprazolam) 0.5 Mg Tablet 0.5 MG PO TID PRN PRN For Anxiety ( Reported) for Anxiety and at Bedtime for sleep Cyproheptadine HCl (Cyproheptadine HCl) 4 Mg Tablet 4 MG PO TID PRN PRN For Eye Irritation (Reported) Lactulose (Lactulose) 10 Gm/15 Ml Solution 10 GM PO DAILY PRN PRN For Constipation Prescribed by: SABINE PICKENS MD Lorazepam (Ativan) 0.5 Mg Tablet 0.5 MG PO TID PRN PRN For Nausea (Reported) Ondansetron ODT (Ondansetron ODT) 4 Mg Tab.rapdis 8 MG PO Q4H PRN PRN For Nausea /Vomiting Prescribed by: CIERA DIEGO MD Oxycodone (Roxicodone) 5 Mg Tablet 5 MG PO Q4H PRN PRN For Pain (Reported) Polyethylene Glycol 3350 (Miralax) 17 Gm Powd.pack 17 GM PO DAILY PRN PRN For Constipation Prescribed by: SABINE PICKENS MD Sennosides (Senna) 8.6 Mg Tablet 17.2 MG PO BID PRN PRN For Constipation Prescribed by: SABINE PICKENS MD Sumatriptan Succinate (Sumatriptan Succinate) 6 Mg/0.5 Ml Vial 6 MG SQ BID PRN PRN migraine (Reported) Followup Plan Disposition: Home with resume home health feeding Follow-up plan 1. Followup with primary care provider in 2-5 days. 2. Followup with oncology (Dr. Jurado) as previously scheduled. Discharge Diet: Other (Resume home health tube feeding) Discharge Activity: No restrictions Patient Instructions Seek immediate medical attention if any new or worsening signs or symptoms occur. Continue nepho, recommend 2 g K diet per day. Follow-up Provider: Dawson Forman MD Provider: Ana M Jurado MD Time spent 35 min copies to: Dawson Forman MD; AnaM Jurado MD, Masoud Nov 17, 2016 14:22
--- NOTE | 2016-11-17 14:48 | NUR ---
DISCHARGE Pt discharged home this afternoon at 1420, off unit in w/c accompanied by ESTHETICIAN FACIALIST and pt's . A&Ox4, pleasant, interacting per baseline. Vitals stable, denies any pain and in no apparent distress. IV therapy up to de-access TERESO port. PEG tube flushed and clamped. Nephrology in earlier today and cleared pt to go home. All belongings returned. All instructions for diet, activity, medications, prescriptions and follow up reviewed with pt and , who report understanding.
== END 2016-11-17 14:49 | disposition home health service (06) | DRG 425 ==
LOC: SED 16:35 → EDBD 16:35 → OBSVTOIN 19:43 → MPC 19:43
PROVIDERS: ADMIT Hospitalist; ATTEND Hospitalist
DX: E87.5 Hyperkalemia (principal); K92.0 Hematemesis; N17.9 Acute kidney failure, unspecified; N18.3 Chronic kidney disease, stage 3 (moderate); D64.9 Anemia, unspecified; J44.9 Chronic obstructive pulmonary disease, unspecified; K59.00 Constipation, unspecified; H91.09 Ototoxic hearing loss, unspecified ear; T45.1X5S Adverse effect of antineoplastic and immunosuppressive drugs, sequela; J45.909 Unspecified asthma, uncomplicated; Z87.891 Personal history of nicotine dependence; Z85.818 Personal history of malignant neoplasm of other sites of lip, oral cavity, and pharynx

== ENCOUNTER → 2017-02-21 | Day surgery (SDC) | payer OTHER ==
[~2017-02-21] MED LIST changes: +LACT10SO27 PO; +POLY17PO6 PO; +SENN-133 PO; +SILV25CR TOPICAL; -SILV25CR4 TOPICAL; -SODI453. PO
== END | disposition home or self-care (01) ==
LOC: END 14:47
PROVIDERS: ATTEND Internal Medicine
DX: Z46.59 Encounter for fitting and adjustment of other gastrointestinal appliance and device (principal); C09.9 Malignant neoplasm of tonsil, unspecified